=== PATIENT | male | born 1955 | race Caucasian/White ===

== ENCOUNTER 2016-07-18 08:22 | Inpatient (IN) | payer OTHER ==
[~2016-07-18] VITALS: Ht 188 cm; Wt 107.5 kg
[2016-07-18] MEDS ORDERED: IV NORMAL SALINE 1000ML BAG 1,000 ML IV SCH (08:54)
[2016-07-18] MEDS ORDERED: PIP/TAZO PER PHARMACY MC PRN (09:00)
[2016-07-18] MEDS ORDERED: 0.9 % SODIUM CHLORIDE 10 ML DISP.SYRIN. IV PRN (09:00)
[2016-07-18] MEDS ORDERED: MORPHINE SULFATE 10 MG/ML VIAL. IV ONE (09:00)
--- NOTE | 2016-07-18 09:20 | PHYS DOC ---
Adult General Chief Complaint Chief Complaint: WOUND CHECK HPI HPI Patient is a 61 year old, chronically ill male with a history of hypertension and COPD who [facility], presents the emergency department today via EMS transfer for bilateral lower extremity redness and swelling that is been ongoing for approximately one year. Patient himself reports of the left leg is worsened within the past 2-3 days. He denies antibiotic use within the past 60 days. He denies any fevers and chills. Patient himself is a poor historian. Past medical information has to be coaxed out of him. He admits that he is a smoker. He denies any history of vascular disease. Patient states that his legs have been red and swollen for approximately 2-3 years. He states that the purplish you to his toes is chronic in nature, particularly with his left leg. He denies any previous vascular workup her history of vascular abnormalities. Patient states he is able to stand and bear weight. He reports that he is bathe twice a week by nursing staff, even though he can stand and a shower. He states that he typically uses a wheelchair to get around for "long distances". Review of Systems Review of Systems Constitutional: Denies fever or chills [] Eyes: Denies change in visual acuity, redness, or eye pain [] HENT: Denies nasal congestion or sore throat [] Respiratory: Denies cough or shortness of breath [] Cardiovascular: No additional information not addressed in HPI [] GI: Denies abdominal pain, nausea, vomiting, bloody stools or diarrhea [] : Denies dysuria or hematuria [] Musculoskeletal: Denies back pain or joint pain [] Integument: Denies rash or skin lesions [] Neurologic: Denies headache, focal weakness or sensory changes [] Endocrine: Denies polyuria or polydipsia [] Current Medications Current Medications Current Medications Medications (Trade) Dose Ordered Sig/Melinda Start Time Stop Time Status Last Admin Dose Admin Morphine Sulfate 5 mg 1X ONCE 07/18/16 09:00 07/18/16 09:20 DC 07/18/16 09:49 5 MG Piperacillin Sod/ Tazobactam Sod (Zosyn Per Pharmacy) 1 each PRN DAILY PRN 07/18/16 09:00 07/23/16 08:46 DC Sodium Chloride (Iv Sodium Chloride 0.9% 1000ml Bag) 1,000 ml @ 1,000 mls/hr Q1H 07/18/16 08:54 07/18/16 09:53 DC 07/18/16 09:49 1,000 MLS/HR Sodium Chloride (Normal Saline Flush) 10 ml QSHIFT PRN 07/18/16 09:00 07/18/16 09:49 10 ML Vancomycin HCl 1 each 1 each PRN DAILY PRN 07/18/16 09:00 07/23/16 08:51 DC 07/22/16 17:12 1 EACH Allergies Allergies Physical Exam Physical Exam Constitutional: Well developed, well nourished, no acute distress, non-toxic appearance. Patient complains of pain to his left lower leg. Patient is overall appearance of a disheveled individual. He is ambivalent when answering questions about his past medical history and current reason for coming to the emergency department. HENT: Normocephalic, atraumatic, bilateral external ears normal, oropharynx moist, no oral exudates, nose normal. The tip of patient's nose is purple. Eyes: PERRLA, EOMI, conjunctiva normal, no discharge. [] Neck: Normal range of motion, no tenderness, supple, no stridor. [] Cardiovascular:Heart rate regular rhythm, no murmur [] Lungs & Thorax: Patient is on oxygen via nasal cannula. He shows no evidence of respiratory distress or fatigue. There is scant, scattered end expiratory wheezing bilaterally. Abdomen: Bowel sounds normal, soft, no tenderness, no masses, no pulsatile masses. [] Skin: Warm, dry, no erythema, no rash. [] Back: No tenderness, no CVA tenderness. [] Extremities: Bilateral lower extremities are grossly erythematous and swollen. Left greater than right. There is a foul smell coming from the patient's skin which is opened up and is weeping serous to yellowish drainage. Both lower extremities are warm to the touch. Patient's toes on his left foot are purple and cold to the touch. It is difficult to appreciate either dorsalis pedis or posterior tibialis pulse in the left leg. This may be due to the soft tissue swelling or arterial disease. Neurologic: Alert and oriented X 3, normal motor function, normal sensory function, no focal deficits noted. [] Psychologic: Affect normal, judgement normal, mood normal. [] Patient's overall presentation is one of her personal and has peripheral artery disease. Current Patient Data Vital Signs Vital Signs Date Time Temp Pulse Resp B/P Pulse Ox O2 Delivery O2 Flow Rate FiO2 07/18/16 09:29 90 18 150/74 94 Nasal Cannula 3 07/18/16 08:25 97.8 97.8 Lab Values Laboratory Tests Test 07/18/16 09:30 White Blood Count 8.6x10^3/uL (4.0-11.0) Red Blood Count 5.34x10^6/uL (4.30-5.70) Hemoglobin 15.0g/dL (13.0-17.5) Hematocrit 48.1% (39.0-53.0) Mean Corpuscular Volume 90fL (79-100) Mean Corpuscular Hemoglobin 28pg (25-35) Mean Corpuscular Hemoglobin Concent 31g/dL (31-37) Red Cell Distribution Width 15.5% (11.5-14.5) H Platelet Count 137x10^3/uL (140-400) L Neutrophils (%) (Auto) 86% (31-73) H Lymphocytes (%) (Auto) 6% (24-48) L Monocytes (%) (Auto) 7% (0-9) Eosinophils (%) (Auto) 1% (0-3) Basophils (%) (Auto) 0% (0-3) Neutrophils # (Auto) 7.4x10^3uL (1.8-7.7) Lymphocytes # (Auto) 0.5x10^3/uL (1.0-4.8) L Monocytes # (Auto) 0.6x10^3/uL (0.0-1.1) Eosinophils # (Auto) 0.0x10^3/uL (0.0-0.7) Basophils # (Auto) 0.0x10^3/uL (0.0-0.2) Segmented Neutrophils % 88% (35-66) H Lymphocytes % 5% (24-48) L Monocytes % 7% (0-10) Platelet Estimate Decreased (ADEQUATE) Erythrocyte Sedimentation Rate 8 (0-15) Sodium Level 140mmol/L (136-145) Potassium Level 4.6mmol/L (3.5-5.1) Chloride Level 99mmol/L (98-107) Carbon Dioxide Level 40mmol/L (21-32) H Anion Gap 1 (6-14) L Blood Urea Nitrogen 21mg/dL (8-26) Creatinine 0.9mg/dL (0.7-1.3) Estimated GFR (Cockcroft-Gault) 86.1 BUN/Creatinine Ratio 23 (6-20) H Glucose Level 120mg/dL (70-99) H Calcium Level 9.2mg/dL (8.5-10.1) Total Bilirubin 0.7mg/dL (0.2-1.0) Aspartate Amino Transferase (AST) 32U/L (15-37) Alanine Aminotransferase (ALT) 25U/L (16-63) Alkaline Phosphatase 90U/L (46-116) Total Protein 8.2g/dL (6.4-8.2) Albumin 3.1g/dL (3.4-5.0) L Albumin/Globulin Ratio 0.6 (1.0-1.7) L Laboratory Tests 07/18/16 09:30 Laboratory Tests 07/18/16 09:30 EKG EKG [] Radiology/Procedures Radiology/Procedures [] Course & Med Decision Making Course & Med Decision Making 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 He is a smoker. He definitely has the appearance of having arterial compromise. Laboratory test, left tib-fib and arterial ultrasound been ordered. Vancomycin and Zosyn have been ordered IV. Case was staffed with Dr. Rodrigez, hospitalist. He 'll accept the patient on his service. I evaluated this patient with the advanced provider and agree with his assessment and plan. Patient is likely having ongoing vascular disease from his history of smoking. Appropriate antibiotic therapy and tests were ordered. The advanced provider also discussed the case with the hospitalist who agreed to accept him for further evaluation and treatment. Dragon Disclaimer Dragon Disclaimer This electronic medical record was generated, in whole or in part, using a voice recognition dictation system. Departure Departure Impression: Primary Impression: Cellulitis Disposition: ADMITTED INPATIENT Admitting Physician: Jacquelyn Rodrigez Condition: STABLE GINA PARKINSON Jul 18, 2016 09:20 KASSY ROBERTSON DO Jul 27, 2016 06:28
[2016-07-18 09:40] LABS: BASO % 0 % (0-3); EOS % 1 % (0-3); HEMATOCRIT 48.1 % (39.0-53.0); LYMPH # 0.5 x10^3/uL (1.0-4.8); LYMPH % 6 % (24-48); MEAN CORPUSCULAR HEMOGLOBIN 28 pg (25-35); MEAN CORPUSCULAR HGB CONC 31 g/dL (31-37); MEAN CORPUSCULAR VOLUME 90 fL (79-100); MONO % 7 % (0-9); NEUT % 86 % (31-73); PLATELET COUNT 137 x10^3/uL (140-400); RED BLOOD COUNT 5.34 x10^6/uL (4.30-5.70); RED CELL DISTRIBUTION WIDTH 15.5 % (11.5-14.5); WHITE BLOOD COUNT 8.6 x10^3/uL (4.0-11.0)
[2016-07-18] MEDS ORDERED: MORPHINE SULFATE 4 MG/ML DISP.SYRIN. IV PRN (09:45)
[2016-07-18 09:52] LABS: CALCIUM 9.2 mg/dL (8.5-10.1); CREATININE 0.9 mg/dL (0.7-1.3); GFR 86.1; POTASSIUM 4.6 mmol/L (3.5-5.1)
[2016-07-18 09:58] LABS: ALBUMIN 3.1 g/dL (3.4-5.0); ALBUMIN/GLOBULIN RATIO 0.6 (1.0-1.7); TOTAL BILIRUBIN 0.7 mg/dL (0.2-1.0); TOTAL PROTEIN 8.2 g/dL (6.4-8.2)
[2016-07-18] MEDS ORDERED: VANCOMYCIN 2 GM in IV NORMAL SALINE 500ML BAG 500 ML IV ONE (10:00)
[2016-07-18] MEDS ORDERED: PIPERACILLIN/TAZOBACTAM 3.375 GM in IV NORMAL SALINE 50ML 50 ML IV ONE (10:00)
--- NOTE | 2016-07-18 10:06 | ACF ---
Admission Forms Criteria CELLULITIS Clinical Indications for Admission to Inpatient Care (Place 'X' for any and all applicable criteria): Admission is indicated for ANY ONE of the following(1)(2)(3)(4)(5): [X]I. Limb-threatening infection [ ]II. High-risk comorbid condition as indicated by ANY ONE of the following: [ ]a) Uncontrolled diabetes (eg, HbA1c greater than 10% (0.1)) [ ]b) Cirrhosis [ ]c) Neutropenia [ ]d) Asplenia [ ]e) Immunosuppression [ ]f) Symptomatic heart failure [ ]III. Failure of outpatient therapy as indicated by ALL of the following: [ ]a) Progression or no improvement after adequate trial (minimum of 48 hours, with longer period for stable lower extremity infection) [ ]b) Adequate antibiotic regimen as indicated by use of ANY ONE of the following: [ ]i) First-generation cephalosporin (e.g., cephalexin) [ ]ii) Antistaphylococcal penicillin (e.g., dicloxacillin) [ ]iii) Penicillin-allergic patient regimen (clindamycin, extended-spectrum fluoroquinolone, or doxycycline) [ ]iv) Resistant organism (eg, methicillin-resistant Staphylococcus aureus) regimen (6) [ ]c) Outpatient intravenous therapy regimen is not appropriate due to ANY ONE of the following. (7)(8)(9)(10): [ ]i) It was tried and was not successful (eg, progression of infection). [ ]ii) It is not available or cannot be arranged in a clinically appropriate time frame (e.g., the next day). [ ]iii) Clinical presentation (eg, acuity of infection, rapidity of progression, confirmed or suspected bacteremia) is judged to require ALL of the following: [ ]1) Immediate initiation of intravenous therapy ( eg, cannot wait for next day) [ ]2) Intensity of patient monitoring and observation (eg, vital sign measurement, checks for infection progression) that cannot be provided at other than inpatient level of care [ ]IV. Mental status changes [ ]V. Bacteremia [ ]. Hemodynamic instability [ ]VII. Suspected necrotizing soft tissue infection (e.g., gas in tissue)(11)( 12) [ ]VIII. Orbital infection (13)(14) [ ]IX. Associated surgical procedure (e.g., abscess drainage, debridement) not amenable to outpatient, emergency department, or observation care [ ]X. Cutaneous gangrene [ ]XI. High fever (temperature greater than 39.5 degrees C (103.1 degrees F) (oral)) not responsive to outpatient, emergency department, or observation care therapy [ ]XIII. Inpatient admission required rather than observation care (Also use Cellulitis: Observation Care as appropriate) because of ANY ONE of the following : [ ]a) Periorbital or perineal infection that is severe or worsening [ ]b) Severe pain requiring acute inpatient management [ ]c) IV fluid to replace significant ongoing (e.g., for over 24 hours) losses (greater than 3L/m2 per day) [ ]d) Compartment syndrome monitoring (17) [ ]e) Strict or protective (eg, laminar flow) isolation [ ]f) Urgent debridement or skin grafting [ ]g) Bone or joint debridement [ ]h) Immediate inpatient surgery [ ]i) Other condition, treatment or monitoring requiring inpatient admission Extended stay beyond goal length of stay may be needed for (1)(18): [ ]a) Necrotizing soft tissue infection or fasciitis [ ]b) Gram-negative infection [ ]c) Methicillin-resistant Staphylococcal aureus (MRSA) infection [ ]d) Peripheral venous insufficiency with cellulitis [ ]e) Extensive edema [ ]f) Sepsis or continued Hemodynamic instability [ ]g) Continued high fever or mental status change [ ]h) Bacteremia [ ]i) Active serious comorbid conditions ( eg, heart failure, renal insufficiency) The original [employer] content created by [employer] has been revised. The portions of the content which have been revised are identified through the use of italic text or in bold, and [facility] has neither reviewed nor approved the modified material. All other unmodified content is copyright [facility] Please see references footnoted in the original [facility] edition 2016 Admission Criteria Met?: Yes ELISHA RODRIGUEZ Jul 18, 2016 10:06
[2016-07-18 10:45] VITALS: BP 122/72
[2016-07-18] MEDS: IV NORMAL SALINE 1000ML BAG 1,000 ML IV SCH ×2 (10:54→17:42)
--- NOTE | 2016-07-18 11:28 | RAD ---
EXAM: Left tibia/fibula 2 views. HISTORY: Swelling, erythema and drainage. COMPARISON: None. FINDINGS: There is diffuse subcutaneous edema throughout the visualized leg. No soft tissue gas or cortical erosion is identified. No fractures are identified. The ankle is excluded on the lateral projection. There appear to be mild degenerative changes at the ankle on the frontal projection. The knee is excluded on the frontal projection. No abnormalities identified. Atherosclerotic calcifications are noted. IMPRESSION: 1. Diffuse soft tissue swelling. No clear acute osteomyelitis by radiographs.
[2016-07-18] MEDS ORDERED: IPRATRPIUM/ALBUTEROL 0.5/2.5MG 3 ML NEBU. NEB SCH (12:00)
--- NOTE | 2016-07-18 12:03 | RAD ---
EXAM: Left lower extremity arterial Doppler. HISTORY: Nonhealing left lower extremity wounds. COMPARISON: None. FINDINGS: Grayscale and Doppler analysis of the left posterior arterial system was performed. There are monophasic waveforms throughout the left lower extremity consistent with significant proximal occlusive disease. The peroneal and anterior tibial arteries could not be visualized. There is detectable flow in the dorsalis pedis artery. IMPRESSION: 1. Monophasic waveforms throughout the left portion consistent with significant proximal occlusive disease. Slow flow within the trifurcation vessels.
[2016-07-18] MEDS ORDERED: IPRA3AMP NEB (13:08)
[2016-07-18] MEDS ORDERED: VENTOLIN HFA18 GM INH (13:08)
[2016-07-18] MEDS ORDERED: SPIR25TA3 PO (13:08)
[2016-07-18] MEDS ORDERED: GABA-585 PO (13:08)
[2016-07-18] MEDS ORDERED: MIRT30TA3 PO (13:08)
[2016-07-18] MEDS ORDERED: IBUP-1027 PO (13:08)
[2016-07-18 14:03] LABS: PLT ESTIMATE DECREASED (ADEQUATE)
[2016-07-18] MEDS: VANCOMYCIN PER PHARMACY MC PRN (14:14)
[2016-07-18 15:00] VITALS: BP 122/69
--- NOTE | 2016-07-18 16:08 | PDOC1 ---
History and Physical Date of Admission Date of Admission DATE: 07/18/16 TIME: 16:05 Identification/Chief Complaint Chief Complaint LE pain Source Source: Chart review, Patient History of Present Illness History of Present Illness MR Gustafson, is a 61 year old, chronically ill, weakness and COPD. presented by EMS for LE pain and swelling and redness. Excoriation on L L Leg , with weeping, DIffuse dark erythema bilat LE and feet with superficial skin infection of Left leg. he reports his legs have been red and painful for some time He has lives in a NH for over a year, and mainly uses a wheelchair, but can stand and bear weight usually ongoing tobacco use scant other history, Leg pain, 6/10 Past Medical History Cardiovascular: HTN Pulmonary: COPD Rheumatologic: No pertinent hx Infectious disease: No pertinent hx ENT: No pertinent hx Family History Family History: No Significant Social History Smoke: 1 pack per day ALCOHOL: none Drugs: None Current Problem List Problem List Problems Medical Problems: (1) Cellulitis Status: Acute Problems: Current Medications Current Medications Current Medications Vancomycin HCl 1 each 1 each PRN DAILY PRN [facility] TO DOSE Last administered on 07/18/16 14:14; Start 07/18/16 at 09:00 Sodium Chloride (Iv Sodium Chloride 0.9% 1000ml Bag) 1,000 ml @ 1,000 mls/hr Q1H IV Last administered on 07/18/16 09:49; Start 07/18/16 at 08:54; Stop 04/24 at 09:53; Status DC Sodium Chloride (Normal Saline Flush) 10 ml QSHIFT PRN IV AFTER MEDS AND BLOOD DRAWS Last administered on 07/18/16 09:49; Start 07/18/16 at 09:00 Piperacillin Sod/ Tazobactam Sod (Zosyn Per Pharmacy) 1 each PRN DAILY PRN SEE COMMENTS; Start 07/18/16 at 09:00 Morphine Sulfate 5 mg 5 mg 1X ONCE IV Last administered on 07/18/16 09:49; Start 07/18/16 at 09:00; Stop 07/18/16 at 09:20; Status DC Piperacillin Sod/ Tazobactam Sod 3.375 gm/Sodium Chloride 50 ml @ 100 mls/hr 1X ONCE IV Last administered on 07/18/16 09:50; Start 07/18/16 at 10:00; Stop 07/18/16 at 10:29; Status DC Vancomycin HCl/ Sodium Chloride (Iv Sodium Chloride 0.9% 500ml Bag) 500 ml @ 250 mls/hr 1X ONCE IV Last administered on 07/18/16 10:49; Start 07/18/16 at 10:00; Stop 07/18/16 at 11:59; Status DC Morphine Sulfate 4 mg 4 mg PRN Q4HRS PRN IV PAIN Last administered on 10:54; Start 07/18/16 at 09:45 Sodium Chloride (Iv Sodium Chloride 0.9% 1000ml Bag) 1,000 ml @ 125 mls/hr Q8H IV Last administered on 07/18/16 10:54; Start 07/18/16 at 09:42; Stop at 09:41 Albuterol/ Ipratropium 3 ml 3 ml Q6HRS NEB ; Start 07/18/16 at 12:00 Piperacillin Sod/ Tazobactam Sod 3.375 gm/Sodium Chloride 50 ml @ 100 mls/hr Q6HRS IV ; Start 07/18/16 at 18:00 Vancomycin HCl/ Sodium Chloride (Iv Sodium Chloride 0.9% 500ml Bag) 500 ml @ 250 mls/hr Q8H IV ; Start 07/18/16 at 18:00 Vancomycin HCl 1 each 1X ONCE [facility] ; Start 07/19/16 at 09:30; Stop 07/19/16 at 09 :31 Active Scripts Active Reported Ventolin Hfa Inhaler (Albuterol Sulfate) 18 Gm Hfa.aer.ad 2 Puff INH PRN Q6HRS PRN Ibuprofen 400 Mg Tablet 400 Mg PO TID PRN Neurontin (Gabapentin) 100 Mg Capsule 100 Mg PO BID Mirtazapine 30 Mg Tablet 1 Tab PO QHS Spironolactone 25 Mg Tablet 1 Tab PO DAILY Duoneb 0.5-3(2.5) Mg/3 Ml (Albuterol/Ipratropium) 3 Ml Ampul.neb 3 Ml NEB QID PRN Allergies Allergies: Coded Allergies: No Known Drug Allergies (Unverified , 07/18/16) ROS General: YES: Fatigue, Malaise, No: Appetite, Chills, Night Sweats, Other PSYCHOLOGICAL ROS: No: Anxiety, Behavioral Disorder, Concentration difficultie , Decreased libido, Depression, Disorientation, Hallucinations, Hostility, Irritablity, Memory difficulties, Mood Swings, Obsessive thoughts, Other, Physical abuse, Sexual abuse, Sleep disturbances, Suicidal ideation Eyes: No Blurry vision, No Decreased vision, No Double vision, No Dry eyes, No Excessive tearing, No Eye Pain, No Itchy Eyes, No Loss of vision, No Other, No Photophobia, No Scotomata, No Uses contacts, No Uses glasses HEENT: No: Epistaxis, Heacaches, Hearing change, Nasal congestion, Nasal discharge, Oral lesions, Other, Sinus pain, Sneezing, Snoring, Sore Throat, Tinnitus, Vertigo, Visual Changes, Vocal changes Respiratory: No: Cough, Hemoptysis, Orthopnea, Other, Pleuritic Pain, SOB with excertion, Shortness of breath, Sputum Changes, Stridor, Tachypnea, Wheezing Cardiovascular: No Chest Pain, No Edema, No Lt Headedness, No Orthopnea, No Other, No Palpitations, No Paroxysmal Noc. Dyspnea Gastrointestinal: Yes Nausea, No Abdominal Pain, No Constipation, No Diarrhea, No Hematochezia, No Melena, No Other, No Vomiting Genitourinary: No , No , No , No , No , No , No , No Discharge, No Dysuria, No Flank Pain, No Frequency, No Hematuria, No Incontinence, No Other, No Pain, No Retention, No Urgency Musculoskeletal: Yes Pain In: Neurological: No Behavorial Changes, No Bowel/Bladder ControlChng, No Confusion , No Dizziness, No Gait Disturbance, No Headaches, No Impaired Coord/balance, No Memory Loss, No Numbness/Tingling, No Other, No Seizures, No Speech Problems , No Tremors, No Visual Changes, No Weakness Skin: No Acne, No Dry Skin, No Eczema, No Hair Changes, No Lumps, No Mole Changes, No Mottling, No Nail Changes, No Other, No Pruritus, No Rash, No Skin Lesion Changes Physical Exam General: Alert, Oriented X3, Cooperative, mild distress Lungs: Clear to auscultation Heart: RRR, no murmurs Abdomen: Normal bowel sounds, Soft (obese) Rectal Exam: not examined Extremities: No clubbing, Other (diffuse LE edema) Skin: Other (redness, excoriationg, eythema, weeping, ) Neuro: Normal speech, Sensation intact Psych/Mental Status: Mood NL Vitals Vitals Vital Signs Date Time Temp Pulse Resp B/P Pulse Ox O2 Delivery O2 Flow Rate FiO2 07/18/16 15:00 97.5 91 20 122/69 90 Nasal Cannula 3.0 97.5 Labs Labs Laboratory Tests Test 07/18/16 09:30 White Blood Count 8.6x10^3/uL (4.0-11.0) Red Blood Count 5.34x10^6/uL (4.30-5.70) Hemoglobin 15.0g/dL (13.0-17.5) Hematocrit 48.1% (39.0-53.0) Mean Corpuscular Volume 90fL (79-100) Mean Corpuscular Hemoglobin 28pg (25-35) Mean Corpuscular Hemoglobin Concent 31g/dL (31-37) Red Cell Distribution Width 15.5% (11.5-14.5) Platelet Count 137x10^3/uL (140-400) Neutrophils (%) (Auto) 86% (31-73) Lymphocytes (%) (Auto) 6% (24-48) Monocytes (%) (Auto) 7% (0-9) Eosinophils (%) (Auto) 1% (0-3) Basophils (%) (Auto) 0% (0-3) Neutrophils # (Auto) 7.4x10^3uL (1.8-7.7) Lymphocytes # (Auto) 0.5x10^3/uL (1.0-4.8) Monocytes # (Auto) 0.6x10^3/uL (0.0-1.1) Eosinophils # (Auto) 0.0x10^3/uL (0.0-0.7) Basophils # (Auto) 0.0x10^3/uL (0.0-0.2) Segmented Neutrophils % 88% (35-66) Lymphocytes % 5% (24-48) Monocytes % 7% (0-10) Platelet Estimate Decreased (ADEQUATE) Erythrocyte Sedimentation Rate 8 (0-15) Sodium Level 140mmol/L (136-145) Potassium Level 4.6mmol/L (3.5-5.1) Chloride Level 99mmol/L (98-107) Carbon Dioxide Level 40mmol/L (21-32) Anion Gap 1 (6-14) Blood Urea Nitrogen 21mg/dL (8-26) Creatinine 0.9mg/dL (0.7-1.3) Estimated GFR (Cockcroft-Gault) 86.1 BUN/Creatinine Ratio 23 (6-20) Glucose Level 120mg/dL (70-99) Calcium Level 9.2mg/dL (8.5-10.1) Total Bilirubin 0.7mg/dL (0.2-1.0) Aspartate Amino Transf (AST/SGOT) 32U/L (15-37) Alanine Aminotransferase (ALT/SGPT) 25U/L (16-63) Alkaline Phosphatase 90U/L (46-116) Total Protein 8.2g/dL (6.4-8.2) Albumin 3.1g/dL (3.4-5.0) Albumin/Globulin Ratio 0.6 (1.0-1.7) Laboratory Tests Test 07/18/16 09:30 White Blood Count 8.6x10^3/uL (4.0-11.0) Red Blood Count 5.34x10^6/uL (4.30-5.70) Hemoglobin 15.0g/dL (13.0-17.5) Hematocrit 48.1% (39.0-53.0) Mean Corpuscular Volume 90fL (79-100) Mean Corpuscular Hemoglobin 28pg (25-35) Mean Corpuscular Hemoglobin Concent 31g/dL (31-37) Red Cell Distribution Width 15.5% (11.5-14.5) Platelet Count 137x10^3/uL (140-400) Neutrophils (%) (Auto) 86% (31-73) Lymphocytes (%) (Auto) 6% (24-48) Monocytes (%) (Auto) 7% (0-9) Eosinophils (%) (Auto) 1% (0-3) Basophils (%) (Auto) 0% (0-3) Neutrophils # (Auto) 7.4x10^3uL (1.8-7.7) Lymphocytes # (Auto) 0.5x10^3/uL (1.0-4.8) Monocytes # (Auto) 0.6x10^3/uL (0.0-1.1) Eosinophils # (Auto) 0.0x10^3/uL (0.0-0.7) Basophils # (Auto) 0.0x10^3/uL (0.0-0.2) Segmented Neutrophils % 88% (35-66) Lymphocytes % 5% (24-48) Monocytes % 7% (0-10) Platelet Estimate Decreased (ADEQUATE) Erythrocyte Sedimentation Rate 8 (0-15) Sodium Level 140mmol/L (136-145) Potassium Level 4.6mmol/L (3.5-5.1) Chloride Level 99mmol/L (98-107) Carbon Dioxide Level 40mmol/L (21-32) Anion Gap 1 (6-14) Blood Urea Nitrogen 21mg/dL (8-26) Creatinine 0.9mg/dL (0.7-1.3) Estimated GFR (Cockcroft-Gault) 86.1 BUN/Creatinine Ratio 23 (6-20) Glucose Level 120mg/dL (70-99) Calcium Level 9.2mg/dL (8.5-10.1) Total Bilirubin 0.7mg/dL (0.2-1.0) Aspartate Amino Transf (AST/SGOT) 32U/L (15-37) Alanine Aminotransferase (ALT/SGPT) 25U/L (16-63) Alkaline Phosphatase 90U/L (46-116) Total Protein 8.2g/dL (6.4-8.2) Albumin 3.1g/dL (3.4-5.0) Albumin/Globulin Ratio 0.6 (1.0-1.7) VTE Prophylaxis Ordered VTE Prophylaxis Devices: Contraindicated VTE Pharmacological Prophylaxi: Yes Assessment/Plan Assessment/Plan cellulitis BLE, Vanc and zosyn, consult ID suspect poor perfusion LE, PVD or suspect Buerger;s disease, consult Vascular, check RADHA obesity, BMI 37 tobacco abuse COPD known, hypercarbic, chronic mild.mod malnutrition gen weakness and debility, lives in [place] reports [place] insurance, maybe disability, this was unclear RYAN HAQ MD Jul 18, 2016 16:08
[2016-07-18] MEDS ORDERED: NON FORMULARY ITEM (Albuterol Sulfate (Ventolin Hfa Inhaler) 2 PUFF) INH PRN (16:15)
[2016-07-18] MEDS ORDERED: ALBUTEROL SULFATE 2.5 MG/3 ML NEBU. NEB PRN (16:15)
[2016-07-18] MEDS ORDERED: IPRATRPIUM/ALBUTEROL 0.5/2.5MG 3 ML NEBU. NEB PRN (16:15)
[2016-07-18] MEDS: SPIRONOLACTONE 25 MG TABLET PO SCH (16:38)
[2016-07-18] MEDS: IBUPROFEN 400 MG TABLET. PO PRN (16:38)
[2016-07-18] MEDS: IPRATRPIUM/ALBUTEROL 0.5/2.5MG 3 ML NEBU. NEB SCH ×2 (17:00→19:54)
[2016-07-18] MEDS: OXYCODONE/APAP 5/325 TABLET. PO PRN ×2 (18:15→22:15)
[2016-07-18] MEDS: VANCOMYCIN 1.75 GM in IV NORMAL SALINE 500ML BAG 500 ML IV SCH (18:16)
[2016-07-18] MEDS: PIPERACILLIN/TAZOBACTAM 3.375 GM in IV NORMAL SALINE 50ML 50 ML IV SCH (18:16)
[2016-07-18 19:00] VITALS: BP 102/54
[2016-07-18] MEDS: GABAPENTIN 100 MG CAPSULE. PO SCH (22:14)
[2016-07-18] MEDS: MIRTAZAPINE 15 MG TABLET PO SCH (22:14)
[2016-07-18 23:23] VITALS: BP 114/57
[2016-07-19] MEDS: PIPERACILLIN/TAZOBACTAM 3.375 GM in IV NORMAL SALINE 50ML 50 ML IV SCH ×4 (00:15→18:42)
[2016-07-19] MEDS: IV NORMAL SALINE 1000ML BAG 1,000 ML IV SCH (01:42)
[2016-07-19] MEDS: VANCOMYCIN 1.75 GM in IV NORMAL SALINE 500ML BAG 500 ML IV SCH ×2 (02:19→10:00)
[2016-07-19] MEDS: OXYCODONE/APAP 5/325 TABLET. PO PRN ×4 (02:19→18:41)
[2016-07-19 03:22] VITALS: BP 103/64
[2016-07-19 07:00] VITALS: BP 145/71
--- NOTE | 2016-07-19 08:21 | RAD ---
Ankle-brachial indices, 07/18/2016: History: Nonhealing wounds Resting RADHA measurements were obtained. The right RADHA is 1.04 while the left RADHA is 1.08. IMPRESSION: Normal resting ankle-brachial indices.
[2016-07-19] MEDS: GABAPENTIN 100 MG CAPSULE. PO SCH ×2 (08:29→21:17)
[2016-07-19] MEDS: SPIRONOLACTONE 25 MG TABLET PO SCH (08:29)
[2016-07-19] MEDS: IPRATRPIUM/ALBUTEROL 0.5/2.5MG 3 ML NEBU. NEB SCH ×4 (08:33→21:07)
--- NOTE | 2016-07-19 09:59 | PDOC ---
Infectious Disease Note ROS ROS GEN: Denies fevers, chills, sweats HEENT: Denies blurred vision, sore throat CV: Denies chest pain RESP: Denies shortness of air, cough GI: Denies n/v/d NEURO: Denies confusion, dizziness MSK: Denies weakness, joint pain/swelling Vital Sign Vital Signs Vital Signs Date Time Temp Pulse Resp B/P Pulse Ox O2 Delivery O2 Flow Rate FiO2 07/19/16 08:34 89 Nasal Cannula 4.0 07/19/16 07:00 98.8 99 20 145/71 98.8 Physical Exam PHYSICAL EXAM GENERAL: NAD, Alert HEENT: PERRL, OC/OP NECK: Supple, no JVD, no LN LUNGS: Clear HEART: S1S2, no gallop, no murmur ABD: Soft, NT, no organomegaly, no rebound EXT: No edema, no cyanosis [employer]ER: Alert, oriented x 3, no focal neurologic deficit SKIN: No rash IV: ok Objective Assessment LE Cellulitis PAD hyperglycemia Tinea Plan Plan of Care Cont Abx Add fluconazole Derm consult/biopsy if vascular uncertain of etiology. Seems to have a generalized skin condition Check hgA1 c Thank you # [id number] ERLIN FU MD Jul 19, 2016 09:59
[2016-07-19 10:17] LABS: CALCIUM 8.6 mg/dL (8.5-10.1); CREATININE 1.1 mg/dL (0.7-1.3); GFR 68.3
[2016-07-19] MEDS: VANCOMYCIN PER PHARMACY MC PRN (10:20)
[2016-07-19 10:51] VITALS: BP 129/63
[2016-07-19 11:19] LABS: BASO % 0 % (0-3); EOS % 1 % (0-3); HEMATOCRIT 44.3 % (39.0-53.0); HEMOGLOBIN 14.1 g/dL (13.0-17.5); LYMPH # 0.3 x10^3/uL (1.0-4.8); LYMPH % 5 % (24-48); MEAN CORPUSCULAR HEMOGLOBIN 28 pg (25-35); MEAN CORPUSCULAR HGB CONC 32 g/dL (31-37); MEAN CORPUSCULAR VOLUME 89 fL (79-100); MONO % 6 % (0-9); NEUT % 88 % (31-73); PLATELET COUNT 130 x10^3/uL (140-400); RED BLOOD COUNT 4.99 x10^6/uL (4.30-5.70); RED CELL DISTRIBUTION WIDTH 15.7 % (11.5-14.5); WHITE BLOOD COUNT 6.5 x10^3/uL (4.0-11.0)
[2016-07-19 14:43] LABS: INR 1.2 (0.8-1.1); PROTHROMBIN TIME PATIENT 14.1 SEC (11.7-14.0)
[2016-07-19 15:14] VITALS: BP 137/75
[2016-07-19] MEDS ORDERED: IOHEXOL 300 MG/ML 100ML VIAL. ONE (16:28)
[2016-07-19] MEDS ORDERED: LIDOCAINE 1% / SOD BICARB 8.4% 20 ML VIAL. IJ ONE (16:28)
[2016-07-19] MEDS ORDERED: IODIXANOL 320MG/ML 50ML VIAL. ONE (16:28)
[2016-07-19] MEDS ORDERED: IODIXANOL 320 MG/ML 100 ML VIAL. ONE (16:29)
--- NOTE | 2016-07-19 17:04 | PDOC ---
Provider Note Provider Note IR Note: Abdominal aortogram with bilateral lower extremity angio has been requested for severe lower extremity edema/cellulitis. Mr Manuel was brought to the IR suite and was placed supine on the angio table. Lying flat, he became anxious and his O2 sats fell into low 60s on supplemental O2 at 5L per NC. The arteriogram was deferred at this time, and could be rescheduled later with anesthesia assistance, once respiratory status is optimized. HIMS and Vascular Surgery notified. Will follow. MOISÉS COLLINS MD Jul 19, 2016 17:04
--- NOTE | 2016-07-19 17:14 | PDOC ---
PROGRESS NOTES Chief Complaint Chief Complaint Leg pain ASSESSMENT AND PLAN: 1. LE cellulitis: on Abx 2. PVD: art US with occlusive dz. eval with arteriogram pending. Vasc surg consult requested 3. Hypoxic, hypercarbic respir status w/o distress: suspect chronic, COPD, with ongoing tobacco abuse. supplemental O2, nebs. obtain CXR. consult pulm. apparently, had hx of lung lesion with neg bronch in the past 4. Tobacco use: <1/2 ppd now, with >100 p/y hx. encouraged complete cessation 5. HTN: on spironolactone alone (suspect for chronic venous stasis). should be on BB, will start 6. Psych: unclear hx (?depression), but on mirtazapine. cont home med. 7. Thrombocytopenia: stable in triple-digit lowish range. 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 monitor 8. Prophylaxis: sq heparin for now; hold prior to interventions ADDENDUM: arteriogram aborted due to persistent hypoxia even with O2 support. await pulm input before rpt trial. Vitals Vitals Vital Signs Date Time Temp Pulse Resp B/P Pulse Ox O2 Delivery O2 Flow Rate FiO2 07/19/16 15:14 97.7 78 20 137/75 89 Nasal Cannula 4.0 97.7 Physical Exam General: Alert, Oriented X3, Cooperative, No acute distress Heart: Regular rate Lungs: Clear (decreased BS) Abdomen: Normal bowel sounds, Soft (obese) Extremities: No clubbing, Other (deep purple discoloration from bilat dorsi of feet to almost knees. open wounds covered with gauze.) Skin: Other (very dry, superficial blistering on LE ) Labs LABS Laboratory Tests Test 07/19/16 09:30 07/19/16 11:00 07/19/16 14:27 Sodium Level 137mmol/L (136-145) Potassium Level 5.0mmol/L (3.5-5.1) Chloride Level 100mmol/L (98-107) Carbon Dioxide Level 32mmol/L (21-32) Anion Gap 5 (6-14) Blood Urea Nitrogen 20mg/dL (8-26) Creatinine 1.1mg/dL (0.7-1.3) Estimated GFR (Cockcroft-Gault) 68.3 Glucose Level 167mg/dL (70-99) Calcium Level 8.6mg/dL (8.5-10.1) Vancomycin Level Trough 37.2mcg/mL (10.0-20.0) Vancomycin Last Dose Date 07/19/16 Vancomycin Last Dose Time 0200 White Blood Count 6.5x10^3/uL (4.0-11.0) Red Blood Count 4.99x10^6/uL (4.30-5.70) Hemoglobin 14.1g/dL (13.0-17.5) Hematocrit 44.3% (39.0-53.0) Mean Corpuscular Volume 89fL (79-100) Mean Corpuscular Hemoglobin 28pg (25-35) Mean Corpuscular Hemoglobin Concent 32g/dL (31-37) Red Cell Distribution Width 15.7% (11.5-14.5) Platelet Count 130x10^3/uL (140-400) Neutrophils (%) (Auto) 88% (31-73) Lymphocytes (%) (Auto) 5% (24-48) Monocytes (%) (Auto) 6% (0-9) Eosinophils (%) (Auto) 1% (0-3) Basophils (%) (Auto) 0% (0-3) Neutrophils # (Auto) 5.7x10^3uL (1.8-7.7) Lymphocytes # (Auto) 0.3x10^3/uL (1.0-4.8) Monocytes # (Auto) 0.4x10^3/uL (0.0-1.1) Eosinophils # (Auto) 0.0x10^3/uL (0.0-0.7) Basophils # (Auto) 0.0x10^3/uL (0.0-0.2) Prothrombin Time 14.1SEC (11.7-14.0) Prothromb Time International Ratio 1.2 (0.8-1.1) Review of Systems Review of Systems doing ok, denies SOB. not interested in participating in own healthcare Comment Review of Relevant IWONA GUZMAN MD Jul 19, 2016 17:14
--- NOTE | 2016-07-19 17:45 | PDOC2 ---
EMIL OG TRAPEZE ARTIST 07/19/16 1745: CONSULT Date of Consult Date of Consult DATE: 07/19/16 TIME: 10:30 Reason for Consult Reason for Consult: Bilateral lower extremity leg pain and ulcers. Referring Physician Referring Physician: Dr. Jacquelyn Rodrigez Source Source: Chart review, Patient History of Present Illness Reason for Visit: This is a 61-year-old male who appears older than his stated age with a history of COPD and hypertension who was brought to the emergency room by EMS for evaluation of bilateral lower extremity leg wounds. The patient became a resident of a prison 1 year ago when the patient's brother insisted that he could no longer live alone. The patient states he has had chronic leg wounds with swelling for a long time and "years" but that the appearance has worsened recently. He has no idea why his legs are this way and denies having any formal work up or previous evaluation of his legs. He states that he could walk without pain until just a few days ago. He has been able to ambulate at the prison without assistance but tends to use a wheelchair for longer distances. He does have a history of tobacco abuse and reports less than a pack a day. He denies symptoms of pain in the buttock, thigh or calves consistent with claudication. However, he does not tend to be very active and most likely does not perform more aerobic activities to cause symptoms. The patient denies any trauma to his lower extremities that could have caused his wounds. Vascular Surgery consultation has been requested for evaluation and recommendation for bilateral leg pain with ulcers. Past Medical History Past Medical History 1. Current tobacco abuse. 2. Hypertension. 3. Cellulitis bilateral lower extremities. 4. History of ETOH. 5. Ruptured gastric ulcer requiring abdominal surgery. 6. Fractured left shoulder with repair. 7. Fractured left hip with repair. 8. 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 Past Surgical History Past Surgical History 1. Abdominal surgery for a ruptured gastric ulcer. 2. Repair of fractured left shoulder. 3. Repair of fractured left hip. Family History Family History: No Significant Social History Social History Current smokes reportedly less than 1 pack per day. Drinks at least 2 beers every Tuesday. + history of alcohol abuse. Denied drug abuse. Lives in a prison. Current Problem List Problem List Problems Medical Problems: (1) Cellulitis Status: Acute Current Medications Current Medications Current Medications Vancomycin HCl 1 each 1 each PRN DAILY PRN PHARMACY TO DOSE Last administered on 07/19/16 10:20; Start 07/18/16 at 09:00 Sodium Chloride (Iv Sodium Chloride 0.9% 1000ml Bag) 1,000 ml @ 1,000 mls/hr Q1H IV Last administered on 07/18/16 09:49; Start 07/18/16 at 08:54; Stop 04/24 at 09:53; Status DC Sodium Chloride (Normal Saline Flush) 10 ml QSHIFT PRN IV AFTER MEDS AND BLOOD DRAWS Last administered on 07/18/16 09:49; Start 07/18/16 at 09:00 Piperacillin Sod/ Tazobactam Sod (Zosyn Per Pharmacy) 1 each PRN DAILY PRN SEE COMMENTS; Start 07/18/16 at 09:00 Morphine Sulfate 5 mg 5 mg 1X ONCE IV Last administered on 07/18/16 09:49; Start 07/18/16 at 09:00; Stop 07/18/16 at 09:20; Status DC Piperacillin Sod/ Tazobactam Sod 3.375 gm/Sodium Chloride 50 ml @ 100 mls/hr 1X ONCE IV Last administered on 07/18/16 09:50; Start 07/18/16 at 10:00; Stop 07/18/16 at 10:29; Status DC Vancomycin HCl/ Sodium Chloride (Iv Sodium Chloride 0.9% 500ml Bag) 500 ml @ 250 mls/hr 1X ONCE IV Last administered on 07/18/16 10:49; Start 07/18/16 at 10:00; Stop 07/18/16 at 11:59; Status DC Morphine Sulfate 4 mg 4 mg PRN Q4HRS PRN IV PAIN Last administered on 10:54; Start 07/18/16 at 09:45 Sodium Chloride (Iv Sodium Chloride 0.9% 1000ml Bag) 1,000 ml @ 125 mls/hr Q8H IV Last administered on 07/18/16 10:54; Start 07/18/16 at 09:42; Stop at 09:41; Status DC Albuterol/ Ipratropium 3 ml 3 ml Q6HRS NEB ; Start 07/18/16 at 12:00; Stop 07/18 at 16:06; Status DC Piperacillin Sod/ Tazobactam Sod 3.375 gm/Sodium Chloride 50 ml @ 100 mls/hr Q6HRS IV Last administered on 07/19/16 12:15; Start 07/18/16 at 18:00 Vancomycin HCl/ Sodium Chloride (Iv Sodium Chloride 0.9% 500ml Bag) 500 ml @ 250 mls/hr Q8H IV Last administered on 07/19/16 02:19; Start 07/18/16 at 18:00 ; Stop 07/19/16 at 10:15; Status DC Vancomycin HCl 1 each 1X ONCE MC Last administered on 07/19/16 09:30; Start 07/19/16 at 09:30; Stop 07/19/16 at 09:31; Status DC Gabapentin (Neurontin) 100 mg BID PO Last administered on 07/19/16 08:29; Start 07/18/16 at 21:00 Ibuprofen (Motrin) 400 mg PRN TID PRN PO INFLAMMATION Last administered on 07/18 16:38; Start 07/18/16 at 16:15 Albuterol/ Ipratropium (Duoneb) 3 ml QID PRN NEB SHORTNESS OF BREATH; Start 04/24 at 16:15; Stop 07/18/16 at 16:19; Status DC Spironolactone (Aldactone) 25 mg DAILY PO Last administered on 07/19/16 08:29 ; Start 07/18/16 at 17:00 Non-Formulary Medication 2 puff PRN Q6HRS PRN INH SHORTNESS OF BREATH; Start at 16:15; Stop 07/18/16 at 16:18; Status DC Mirtazapine (Remeron) 30 mg QHS PO Last administered on 07/18/16 22:14; Start 07/18/16 at 21:00 Albuterol/ Ipratropium (Duoneb) 3 ml RTQID NEB Last administered on 07/19/16 12:57; Start 07/18/16 at 17:00 Oxycodone/ Acetaminophen (Percocet 5/325) 1 tab PRN Q4HRS PRN PO PAIN Last administered on 07/19/16 12:17; Start 07/18/16 at 16:15 Albuterol Sulfate 2.5 mg 2.5 mg PRN Q6HRS PRN NEB SHORTNESS OF BREATH; Start at 16:15 Vancomycin HCl/ Sodium Chloride (Iv Sodium Chloride 0.9% 250ml) 250 ml @ 250 mls/hr Q12H IV ; Start 07/19/16 at 21:00 Iodixanol (Visipaque 320) 50 ml STK-MED ONCE .ROUTE ; Start 07/19/16 at 16:28; Stop 07/19/16 at 16:29; Status DC Iohexol (Omnipaque 300 Mg/ml) 100 ml STK-MED ONCE .ROUTE ; Start 07/19/16 at 16: 28; Stop 07/19/16 at 16:29; Status DC Lidocaine/Sodium Bicarbonate 20 ml 20 ml STK-MED ONCE IJ ; Start 07/19/16 at 16: 28; Stop 07/19/16 at 16:29; Status DC Heparin Sodium/ Sodium Chloride 1,500 ml @ As Directed STK-MED ONCE .ROUTE ; Start 07/19/16 at 16:28; Stop 07/19/16 at 16:29; Status DC Iodixanol (Visipaque 320) 100 ml STK-MED ONCE .ROUTE ; Start 07/19/16 at 16:29; Stop 07/19/16 at 16:30; Status DC Active Scripts Active Reported Ventolin Hfa Inhaler (Albuterol Sulfate) 18 Gm Hfa.aer.ad 2 Puff INH PRN Q6HRS PRN Ibuprofen 400 Mg Tablet 400 Mg PO TID PRN Neurontin (Gabapentin) 100 Mg Capsule 100 Mg PO BID Mirtazapine 30 Mg Tablet 1 Tab PO QHS Spironolactone 25 Mg Tablet 1 Tab PO DAILY Duoneb 0.5-3(2.5) Mg/3 Ml (Albuterol/Ipratropium) 3 Ml Ampul.neb 3 Ml NEB QID PRN Allergies Allergies: Coded Allergies: No Known Drug Allergies (Unverified , 07/18/16) ROS General: No: Chills, Night Sweats HEENT: No: Heacaches, Nasal congestion, Nasal discharge Hematological and Lymphatic: YES: Swollen Lymph Nodes, No: Blood Clots Respiratory: YES: Cough, No: Hemoptysis, Pleuritic Pain, Shortness of breath Cardiovascular: yes Edema (Bilateral lower extremities), No Chest Pain, No Palpitations Gastrointestinal: No Abdominal Pain, No Constipation, No Diarrhea, No Nausea, No Vomiting Genitourinary: YES , YES , YES , No Dysuria, No Pain Musculoskeletal: Yes Pain In: (Bilateral feet) Skin: Yes Other (Bilateral lower leg edema with weeping ulcers and skin color changes) Physical Exam General: Alert, Oriented X3, Cooperative, mild distress HEENT: Other (No upper teeth with several missing lower teeth) Lungs: Other (Bilateral expiratory wheezes. On supplemental oxygen 4 liters.) Heart: Regular rate, Normal S1, Normal S2, No murmurs Abdomen: Normal bowel sounds, No tenderness, Other (Rounded and somewhat protruding. Patient states this is normal for him.) Extremities: Other (Palpable bilateral radial pulses and right femoral pulse. Unable to palpate left femoral pulse. Unable to palpate popliteal, post tibial or dorsalis pedal pulses due to swelling.) Skin: Other (Bilateral diffuse and dark erythema from knees down with bubbling skin changes and thick, creamy weeping consistent with cellulitis. Right lower leg skin changes more dry and scaly. Left lower leg and foot with patchy areas of black necrotic tissue changes. ) Vitals VITALS Vital Signs Date Time Temp Pulse Resp B/P Pulse Ox O2 Delivery O2 Flow Rate FiO2 07/19/16 15:14 97.7 78 20 137/75 89 Nasal Cannula 4.0 97.7 Labs Labs Laboratory Tests Test 07/18/16 09:30 07/19/16 09:30 07/19/16 11:00 07/19/16 14:27 White Blood Count 8.6x10^3/uL (4.0-11.0) 6.5x10^3/uL (4.0-11.0) Red Blood Count 5.34x10^6/uL (4.30-5.70) 4.99x10^6/uL (4.30-5.70) Hemoglobin 15.0g/dL (13.0-17.5) 14.1g/dL (13.0-17.5) Hematocrit 48.1% (39.0-53.0) 44.3% (39.0-53.0) Mean Corpuscular Volume 90fL (79-100) 89fL (79-100) Mean Corpuscular Hemoglobin 28pg (25-35) 28pg (25-35) Mean Corpuscular Hemoglobin Concent 31g/dL (31-37) 32g/dL (31-37) Red Cell Distribution Width 15.5% (11.5-14.5) 15.7% (11.5-14.5) Platelet Count 137x10^3/uL (140-400) 130x10^3/uL (140-400) Neutrophils (%) (Auto) 86% (31-73) 88% (31-73) Lymphocytes (%) (Auto) 6% (24-48) 5% (24-48) Monocytes (%) (Auto) 7% (0-9) 6% (0-9) Eosinophils (%) (Auto) 1% (0-3) 1% (0-3) Basophils (%) (Auto) 0% (0-3) 0% (0-3) Neutrophils # (Auto) 7.4x10^3uL (1.8-7.7) 5.7x10^3uL (1.8-7.7) Lymphocytes # (Auto) 0.5x10^3/uL (1.0-4.8) 0.3x10^3/uL (1.0-4.8) Monocytes # (Auto) 0.6x10^3/uL (0.0-1.1) 0.4x10^3/uL (0.0-1.1) Eosinophils # (Auto) 0.0x10^3/uL (0.0-0.7) 0.0x10^3/uL (0.0-0.7) Basophils # (Auto) 0.0x10^3/uL (0.0-0.2) 0.0x10^3/uL (0.0-0.2) Segmented Neutrophils % 88% (35-66) Lymphocytes % 5% (24-48) Monocytes % 7% (0-10) Platelet Estimate Decreased (ADEQUATE) Erythrocyte Sedimentation Rate 8 (0-15) Sodium Level 140mmol/L (136-145) 137mmol/L (136-145) Potassium Level 4.6mmol/L (3.5-5.1) 5.0mmol/L (3.5-5.1) Chloride Level 99mmol/L (98-107) 100mmol/L (98-107) Carbon Dioxide Level 40mmol/L (21-32) 32mmol/L (21-32) Anion Gap 1 (6-14) 5 (6-14) Blood Urea Nitrogen 21mg/dL (8-26) 20mg/dL (8-26) Creatinine 0.9mg/dL (0.7-1.3) 1.1mg/dL (0.7-1.3) Estimated GFR (Cockcroft-Gault) 86.1 68.3 BUN/Creatinine Ratio 23 (6-20) Glucose Level 120mg/dL (70-99) 167mg/dL (70-99) Calcium Level 9.2mg/dL (8.5-10.1) 8.6mg/dL (8.5-10.1) Total Bilirubin 0.7mg/dL (0.2-1.0) Aspartate Amino Transf (AST/SGOT) 32U/L (15-37) Alanine Aminotransferase (ALT/SGPT) 25U/L (16-63) Alkaline Phosphatase 90U/L (46-116) Total Protein 8.2g/dL (6.4-8.2) Albumin 3.1g/dL (3.4-5.0) Albumin/Globulin Ratio 0.6 (1.0-1.7) Vancomycin Level Trough 37.2mcg/mL (10.0-20.0) Vancomycin Last Dose Date 07/19/16 Vancomycin Last Dose Time 0200 Prothrombin Time 14.1SEC (11.7-14.0) Prothromb Time International Ratio 1.2 (0.8-1.1) Laboratory Tests Test 07/19/16 09:30 07/19/16 11:00 07/19/16 14:27 Sodium Level 137mmol/L (136-145) Potassium Level 5.0mmol/L (3.5-5.1) Chloride Level 100mmol/L (98-107) Carbon Dioxide Level 32mmol/L (21-32) Anion Gap 5 (6-14) Blood Urea Nitrogen 20mg/dL (8-26) Creatinine 1.1mg/dL (0.7-1.3) Estimated GFR (Cockcroft-Gault) 68.3 Glucose Level 167mg/dL (70-99) Calcium Level 8.6mg/dL (8.5-10.1) Vancomycin Level Trough 37.2mcg/mL (10.0-20.0) Vancomycin Last Dose Date 07/19/16 Vancomycin Last Dose Time 0200 White Blood Count 6.5x10^3/uL (4.0-11.0) Red Blood Count 4.99x10^6/uL (4.30-5.70) Hemoglobin 14.1g/dL (13.0-17.5) Hematocrit 44.3% (39.0-53.0) Mean Corpuscular Volume 89fL (79-100) Mean Corpuscular Hemoglobin 28pg (25-35) Mean Corpuscular Hemoglobin Concent 32g/dL (31-37) Red Cell Distribution Width 15.7% (11.5-14.5) Platelet Count 130x10^3/uL (140-400) Neutrophils (%) (Auto) 88% (31-73) Lymphocytes (%) (Auto) 5% (24-48) Monocytes (%) (Auto) 6% (0-9) Eosinophils (%) (Auto) 1% (0-3) Basophils (%) (Auto) 0% (0-3) Neutrophils # (Auto) 5.7x10^3uL (1.8-7.7) Lymphocytes # (Auto) 0.3x10^3/uL (1.0-4.8) Monocytes # (Auto) 0.4x10^3/uL (0.0-1.1) Eosinophils # (Auto) 0.0x10^3/uL (0.0-0.7) Basophils # (Auto) 0.0x10^3/uL (0.0-0.2) Prothrombin Time 14.1SEC (11.7-14.0) Prothromb Time International Ratio 1.2 (0.8-1.1) Images Images RADHA ART STUDY LOWER EXTREM MADDI Ankle-brachial indices, 07/18/2016: Resting RADHA measurements were obtained. The right RADHA is 1.04 while the left RADHA is 1.08. IMPRESSION: Normal resting ankle-brachial indices. Left lower extremity arterial Doppler. There are monophasic waveforms throughout the left lower extremity consistent with significant proximal occlusive disease. The peroneal and anterior tibial arteries could not be visualized. There is detectable flow in the dorsalis pedis artery. IMPRESSION: 1. Monophasic waveforms throughout the left portion consistent with significant proximal occlusive disease. Slow flow within the trifurcation vessels. Assessment/Plan Assessment/Plan 1. Bilateral lower extremity cellulitis with most likely some degree of peripheral arterial disease based upon physical exam and arterial doppler results with monophasic flow to the left lower extremity. Consultation has been made to Interventional Radiology and Dr. Spence has spoke with Dr. Enriquez for an angiogram with bilateral run off with possible percutaneous intervention hopefully today. We will await the results of arterial studies to help determine next steps and further recommendations. Additionally, antiplatelet therapy of ECASA will be added. Continue local wound care, elevation and IV antibiotics. 2. Cellulitis. Agree with IV antibiotic therapy per Infectious Disease. Also agree with adding antifungal therapy. Depending upon the results of the angiogram, also agree with ID's recommendation to proceed with dermatology consultation as the appearance of skin changes somewhat unique. Also, patient has rash in stacey-area with scaly skin to penis shaft similar to right lower leg. 3. Tobacco abuse. Educated on the need for smoking cessation. 4. Hypertension. Controlled on oral antihypertensive medications. 5. Will check fasting lipid profile in a.m. to evaluate for hyperlipidemia. Thank you for the opportunity to participate in the care of this most interesting patient. Dr. Spence will see patient in the morning and provide further recommendation at that time. KEERTHI SPENCE MD 07/20/16 0832: CONSULT Allergies Allergies: Coded Allergies: No Known Drug Allergies (Unverified , 07/18/16) Assessment/Plan Assessment/Plan Agree with the above note. Patient seen and examined by Dr. Spence on 07/20/2016. 61 year old male with extensive bilateral lower extremity superficial skin ulceration and cellulitis worse in the left leg that the right. The wounds are located in the calf/ankles and the left foot. On vascular exam he has a palpable right femoral pulse, no left femoral pulse and no pedal pulses felt. Duplex of the left leg shows monophasic flow and likely inflow disease. ABIs are normal however likely falsely elevated from calcified vessels. Recommend an aortogram with bilateral runoff and possible left leg intervention. Continue IV antibiotics. Wound care to the legs. Recommend a venous duplex scan of the bilateral lower extremities to rule out DVT with swelling. Order rooke boots. EMIL OG APRN Jul 19, 2016 17:45 KEERTHI SPENCE MD Jul 20, 2016 08:32
[2016-07-19] MEDS: ASPIRIN ENTERIC COATED 81 MG TABLET.DR. PO SCH (18:41)
[2016-07-19 19:26] VITALS: BP 137/70
[2016-07-19] MEDS: MIRTAZAPINE 15 MG TABLET PO SCH (21:17)
[2016-07-19] MEDS: IBUPROFEN 400 MG TABLET. PO PRN (21:18)
[2016-07-19] MEDS: FLUCONAZOLE 100 MG TABLET. PO SCH (21:18)
[2016-07-19] MEDS: VANCOMYCIN 1 GM in IV NORMAL SALINE 250ML 250 ML IV SCH (21:19)
[2016-07-19 22:44] LABS: PH ABG 7.29 (7.35-7.45)
[2016-07-19 22:48] LABS: PCO2 ABG 71 mmHg (35-46)
[2016-07-19 22:49] LABS: HCO3 ABG 33 mmol/L (21-28); PO2 ABG 54 mmHg (65-108); SAT O2 ABG 86 % (92-99)
[2016-07-19 22:50] LABS: FIO2 ABG 50
[2016-07-19 23:22] VITALS: BP 104/61
[2016-07-20] MEDS: PIPERACILLIN/TAZOBACTAM 3.375 GM in IV NORMAL SALINE 50ML 50 ML IV SCH ×5 (00:57→23:53)
[2016-07-20] MEDS: OXYCODONE/APAP 5/325 TABLET. PO PRN ×5 (01:00→23:57)
[2016-07-20 03:20] VITALS: BP 123/68
--- NOTE | 2016-07-20 05:52 | CONS ---
DATE OF CONSULTATION: 07/19/2016 LOCATION: The patient is in room 422. REQUESTING PHYSICIAN: Dr. Rodrigez. REASON FOR CONSULTATION: Cellulitis. HISTORY OF PRESENT ILLNESS: The patient is a pleasant 61-year-old gentleman who is a former [place] . He is a very poor historian and lives in [facility]. He has history of depression, COPD, and has problems with his lower extremities for greater than a year. He states over the last 2-3 days, there have been increasing pain and redness, and he was brought to [facility] for further care and evaluation. He has been afebrile since his arrival. He had a white blood cell count of 8.6, but did have 88% neutrophils. Blood cultures were obtained. He underwent lower arterial Dopplers that showed some proximal occlusive disease. He then underwent arterial Dopplers, which showed normal resting ankle brachial indices. X-rays have some diffuse tissue swelling. He has been placed on vancomycin and Zosyn. Currently, he is sitting upright in bed. He denies any fevers or chills or sweats. He has no headaches, no change in vision or sore throat. He has occasional cough. No chest pain. No nausea, vomiting or diarrhea. Denies any trauma. PAST MEDICAL HISTORY: Positive for depression, COPD. He has had a perforated ulcer what he said was requiring surgery. 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 REVIEW OF SYSTEMS: Otherwise negative except as mentioned above. SOCIAL HISTORY: He is a smoker and former [place] . FAMILY HISTORY: Noncontributory with regard to any skin disease. ALLERGIES: No known drug allergies. CURRENT MEDICATIONS: Include vancomycin, Zosyn, Neurontin, Motrin, Remeron, spironolactone. Other meds are available and have been reviewed in the chart. PHYSICAL EXAMINATION: VITAL SIGNS: He is afebrile, temperature 98.8, pulse 99, respirations 20, blood pressure 145/71, satting 89% on 4 liters. CONSTITUTIONAL: He is cooperative. He is in no acute distress. He looks a little bit disheveled. HEENT: Pupils are equal and reactive. Oral cavity, oropharynx, he has poor dentition. NECK: Supple, no JVD. LUNGS: Clear to auscultation bilaterally. HEART: S1, S2. ABDOMEN: Protuberant. He has a well-healed incision, nontender, nondistended. EXTREMITIES: Without clubbing, no cyanosis. He has bilateral lower extremity 2+ edema that is nonpitting. He has got scaling, tinea, and erythema associated with the legs with his left one being warmer than the right. SKIN: No generalized rash, but he does have chronic changes associated with his nose, his hands, and his arms as well as his upper legs. NEUROLOGIC: He moves all extremities, though he is a poor historian. PSYCHIATRIC: Affect is appropriate. LABORATORY DATA: White count 8.6, hemoglobin 15, platelets of 137 with 88 segs, 5 lymphs. Creatinine of 0.9, glucose 120. Normal liver function study tests. Sedimentation rate was 5. Radiology reviewed in the history of present illness. IMPRESSION: 1. Lower extremity cellulitis. 2. Peripheral arterial disease. 3. Hyperglycemia. 4. Tinea. RECOMMENDATIONS: For now, we will continue the antibiotics. We will add fluconazole. Derm consult, biopsy, vascular is uncertain of the etiology, seems to have chronic skin condition. Check hemoglobin A1c. Thank you for allowing me to participate in this patient's care. If you have any questions, please do not hesitate to contact me. ERLIN FU MD DR: LAURIE/yvonne JOB#: [id number] / [id number]
[2016-07-20 06:27] LABS: HEMATOCRIT 44.4 % (39.0-53.0); HEMOGLOBIN 14.1 g/dL (13.0-17.5); RED CELL DISTRIBUTION WIDTH 15.5 % (11.5-14.5); WHITE BLOOD COUNT 4.8 x10^3/uL (4.0-11.0)
[2016-07-20 06:37] LABS: CALCIUM 8.6 mg/dL (8.5-10.1); GFR 76.2; POTASSIUM 4.7 mmol/L (3.5-5.1)
[2016-07-20 06:40] LABS: CHOLESTEROL/HDL RATIO 3.9
[2016-07-20 07:00] VITALS: BP 129/65
[2016-07-20] MEDS: IPRATRPIUM/ALBUTEROL 0.5/2.5MG 3 ML NEBU. NEB SCH ×4 (07:15→20:59)
[2016-07-20 08:12] LABS: HCO3 ABG 36 mmol/L (21-28); PH ABG 7.29 (7.35-7.45); PO2 ABG 58 mmHg (65-108); SAT O2 ABG 89 % (92-99)
--- NOTE | 2016-07-20 08:13 | RAD ---
Chest, 2 views, 07/19/2016: History: Shortness of breath The heart is mildly enlarged. The pulmonary markings are prominent. No consolidating infiltrate is seen. There is blunting of one of the posterior costophrenic angles which is probably on the right. Moderate spurring is present in the spine. A partially visualized proximal left humeral fracture appears to be old. IMPRESSION: 1. Mild cardiomegaly. 2. Mild prominence of the pulmonary markings may be due to fibrosis. 3. Blunting of the right posterior costophrenic angle compatible with a small amount of pleural fluid versus scarring.
[2016-07-20 08:15] LABS: FIO2 ABG 50; PCO2 ABG 77 mmHg (35-46)
--- NOTE | 2016-07-20 09:44 | PDOC ---
PULMONARY PROGRESS NOTES Vitals Vital Signs Date Time Temp Pulse Resp B/P Pulse Ox O2 Delivery O2 Flow Rate FiO2 07/20/16 07:17 89 Venturi Mask 15.0 07/20/16 07:00 97.5 66 16 129/65 97.5 Labs Laboratory Tests Test 07/18/16 10:15 07/19/16 09:30 07/19/16 11:00 07/19/16 14:27 Nasal Screen MRSA (PCR) Positive (Negative) Sodium Level 137mmol/L (136-145) Potassium Level 5.0mmol/L (3.5-5.1) Chloride Level 100mmol/L (98-107) Carbon Dioxide Level 32mmol/L (21-32) Anion Gap 5 (6-14) Blood Urea Nitrogen 20mg/dL (8-26) Creatinine 1.1mg/dL (0.7-1.3) Estimated GFR (Cockcroft-Gault) 68.3 Glucose Level 167mg/dL (70-99) Calcium Level 8.6mg/dL (8.5-10.1) Vancomycin Level Trough 37.2mcg/mL (10.0-20.0) Vancomycin Last Dose Date 07/19/16 Vancomycin Last Dose Time 0200 White Blood Count 6.5x10^3/uL (4.0-11.0) Red Blood Count 4.99x10^6/uL (4.30-5.70) Hemoglobin 14.1g/dL (13.0-17.5) Hematocrit 44.3% (39.0-53.0) Mean Corpuscular Volume 89fL (79-100) Mean Corpuscular Hemoglobin 28pg (25-35) Mean Corpuscular Hemoglobin Concent 32g/dL (31-37) Red Cell Distribution Width 15.7% (11.5-14.5) Platelet Count 130x10^3/uL (140-400) Neutrophils (%) (Auto) 88% (31-73) Lymphocytes (%) (Auto) 5% (24-48) Monocytes (%) (Auto) 6% (0-9) Eosinophils (%) (Auto) 1% (0-3) Basophils (%) (Auto) 0% (0-3) Neutrophils # (Auto) 5.7x10^3uL (1.8-7.7) Lymphocytes # (Auto) 0.3x10^3/uL (1.0-4.8) Monocytes # (Auto) 0.4x10^3/uL (0.0-1.1) Eosinophils # (Auto) 0.0x10^3/uL (0.0-0.7) Basophils # (Auto) 0.0x10^3/uL (0.0-0.2) Prothrombin Time 14.1SEC (11.7-14.0) Prothromb Time International Ratio 1.2 (0.8-1.1) Test 07/19/16 21:57 07/20/16 05:55 07/20/16 08:00 O2 Saturation 86% (92-99) 89% (92-99) Arterial Blood pH 7.29 (7.35-7.45) 7.29 (7.35-7.45) Arterial Blood pCO2 at Patient Temp 71mmHg (35-46) 77mmHg (35-46) Arterial Blood pO2 at Patient Temp 54mmHg (65-108) 58mmHg (65-108) Arterial Blood HCO3 33mmol/L (21-28) 36mmol/L (21-28) Arterial Blood Base Excess 4mmol/L (-3-3) 6mmol/L (-3-3) FiO2 50 50 White Blood Count 4.8x10^3/uL (4.0-11.0) Red Blood Count 5.00x10^6/uL (4.30-5.70) Hemoglobin 14.1g/dL (13.0-17.5) Hematocrit 44.4% (39.0-53.0) Mean Corpuscular Volume 89fL (79-100) Mean Corpuscular Hemoglobin 28pg (25-35) Mean Corpuscular Hemoglobin Concent 32g/dL (31-37) Red Cell Distribution Width 15.5% (11.5-14.5) Platelet Count 127x10^3/uL (140-400) Sodium Level 140mmol/L (136-145) Potassium Level 4.7mmol/L (3.5-5.1) Chloride Level 102mmol/L (98-107) Carbon Dioxide Level 34mmol/L (21-32) Anion Gap 4 (6-14) Blood Urea Nitrogen 20mg/dL (8-26) Creatinine 1.0mg/dL (0.7-1.3) Estimated GFR (Cockcroft-Gault) 76.2 Glucose Level 88mg/dL (70-99) Calcium Level 8.6mg/dL (8.5-10.1) Triglycerides Level 60mg/dL (0-150) Cholesterol Level 138mg/dL (0-200) LDL Cholesterol, Calculated 91mg/dL (0-100) VLDL Cholesterol, Calculated 12mg/dL (0-40) HDL Cholesterol 35mg/dL (40-60) Cholesterol/HDL Ratio 3.9 Laboratory Tests Test 07/19/16 11:00 07/19/16 14:27 07/19/16 21:57 07/20/16 05:55 White Blood Count 6.5x10^3/uL (4.0-11.0) 4.8x10^3/uL (4.0-11.0) Red Blood Count 4.99x10^6/uL (4.30-5.70) 5.00x10^6/uL (4.30-5.70) Hemoglobin 14.1g/dL (13.0-17.5) 14.1g/dL (13.0-17.5) Hematocrit 44.3% (39.0-53.0) 44.4% (39.0-53.0) Mean Corpuscular Volume 89fL (79-100) 89fL (79-100) Mean Corpuscular Hemoglobin 28pg (25-35) 28pg (25-35) Mean Corpuscular Hemoglobin Concent 32g/dL (31-37) 32g/dL (31-37) Red Cell Distribution Width 15.7% (11.5-14.5) 15.5% (11.5-14.5) Platelet Count 130x10^3/uL (140-400) 127x10^3/uL (140-400) Neutrophils (%) (Auto) 88% (31-73) Lymphocytes (%) (Auto) 5% (24-48) Monocytes (%) (Auto) 6% (0-9) Eosinophils (%) (Auto) 1% (0-3) Basophils (%) (Auto) 0% (0-3) Neutrophils # (Auto) 5.7x10^3uL (1.8-7.7) Lymphocytes # (Auto) 0.3x10^3/uL (1.0-4.8) Monocytes # (Auto) 0.4x10^3/uL (0.0-1.1) Eosinophils # (Auto) 0.0x10^3/uL (0.0-0.7) Basophils # (Auto) 0.0x10^3/uL (0.0-0.2) Prothrombin Time 14.1SEC (11.7-14.0) Prothromb Time International Ratio 1.2 (0.8-1.1) O2 Saturation 86% (92-99) Arterial Blood pH 7.29 (7.35-7.45) Arterial Blood pCO2 at Patient Temp 71mmHg (35-46) Arterial Blood pO2 at Patient Temp 54mmHg (65-108) Arterial Blood HCO3 33mmol/L (21-28) Arterial Blood Base Excess 4mmol/L (-3-3) FiO2 50 Sodium Level 140mmol/L (136-145) Potassium Level 4.7mmol/L (3.5-5.1) Chloride Level 102mmol/L (98-107) Carbon Dioxide Level 34mmol/L (21-32) Anion Gap 4 (6-14) Blood Urea Nitrogen 20mg/dL (8-26) Creatinine 1.0mg/dL (0.7-1.3) Estimated GFR (Cockcroft-Gault) 76.2 Glucose Level 88mg/dL (70-99) Calcium Level 8.6mg/dL (8.5-10.1) Triglycerides Level 60mg/dL (0-150) Cholesterol Level 138mg/dL (0-200) LDL Cholesterol, Calculated 91mg/dL (0-100) VLDL Cholesterol, Calculated 12mg/dL (0-40) HDL Cholesterol 35mg/dL (40-60) Cholesterol/HDL Ratio 3.9 Test 07/20/16 08:00 O2 Saturation 89% (92-99) Arterial Blood pH 7.29 (7.35-7.45) Arterial Blood pCO2 at Patient Temp 77mmHg (35-46) Arterial Blood pO2 at Patient Temp 58mmHg (65-108) Arterial Blood HCO3 36mmol/L (21-28) Arterial Blood Base Excess 6mmol/L (-3-3) FiO2 50 Medications Active Scripts Medications Dose Route/Sig Days Date Category Ventolin Hfa Inhaler (Albuterol Sulfate) 18 Gm Hfa.aer.ad 2 Puff INH PRN Q6HRS PRN 07/18/16 Reported Ibuprofen 400 Mg Tablet 400 Mg PO TID PRN 07/18/16 Reported Neurontin (Gabapentin) 100 Mg Capsule 100 Mg PO BID 07/18/16 Reported Mirtazapine 30 Mg Tablet 1 Tab PO QHS 07/18/16 Reported Spironolactone 25 Mg Tablet 1 Tab PO DAILY 07/18/16 Reported Duoneb 0.5-3(2.5) Mg/3 Ml (Albuterol/Ipratropium) 3 Ml Ampul.neb 3 Ml NEB QID PRN 07/18/16 Reported Impression . full note dictated prn and QHS bipap for A/C resp failure Ct chest rule out fibrosis ELISHA DAVILA MD Jul 20, 2016 09:44
[2016-07-20] MEDS: FLUCONAZOLE 100 MG TABLET. PO SCH (09:49)
[2016-07-20] MEDS: GABAPENTIN 100 MG CAPSULE. PO SCH ×2 (09:50→21:16)
[2016-07-20] MEDS: VANCOMYCIN 1 GM in IV NORMAL SALINE 250ML 250 ML IV SCH ×2 (09:50→21:22)
[2016-07-20] MEDS: SPIRONOLACTONE 25 MG TABLET PO SCH (09:50)
[2016-07-20] MEDS: ASPIRIN ENTERIC COATED 81 MG TABLET.DR. PO SCH (09:50)
[2016-07-20] MEDS: VANCOMYCIN PER PHARMACY MC PRN (10:36)
--- NOTE | 2016-07-20 10:46 | RAD ---
Clinical Indication: Bilateral lower extremity edema Technique: Study is dated July 20, 2016. Gibson scale, color flow and spectral waveform analysis was performed of both lower extremities with and without compression. Findings: There is normal compressibility of all visualized vein segments. No evidence of DVT is present on grayscale or color images. There is normal phasicity of waveform. There is normal augmentation . Impression: No evidence of deep vein thrombosis in either lower extremity.
[2016-07-20 11:00] VITALS: BP 121/77
--- NOTE | 2016-07-20 11:20 | PDOC ---
PROGRESS NOTES Chief Complaint Chief Complaint Leg pain ASSESSMENT AND PLAN: 1. LE cellulitis: on Abx 2. PVD: art US with occlusive dz. eval with arteriogram aborted 2/2 hypoxia. Vasc surg consult obtained 3. Hypoxic, hypercarbic respir status w/o distress: suspect chronic, COPD, with ongoing tobacco abuse. supplemental O2, nebs. very hypercarbic this AM, asymptomatic. minimize suppl O2. pt initially declined BiPAP, now amenable. recheck ABG in PM 4. Tobacco use: <1/2 ppd now, with >100 p/y hx. encouraged complete cessation 5. HTN: on spironolactone alone (suspect for chronic venous stasis). should be on BB, will start 6. Psych: unclear hx (?depression), but on mirtazapine. cont home med. 7. Thrombocytopenia: stable in triple-digit lowish range. 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 monitor 8. Prophylaxis: sq heparin for now; hold prior to interventions Vitals Vitals Vital Signs Date Time Temp Pulse Resp B/P Pulse Ox O2 Delivery O2 Flow Rate FiO2 07/20/16 10:39 95 BiPAP/CPAP 07/20/16 07:17 15.0 07/20/16 07:00 97.5 66 16 129/65 97.5 Physical Exam General: Alert, Oriented X3, Cooperative, No acute distress Heart: Regular rate Lungs: Clear (decreased BS) Abdomen: Normal bowel sounds, No tenderness, Other (Rounded and somewhat protruding. Patient states this is normal for him.) Extremities: No clubbing, Other (deep purple discoloration from bilat dorsi of feet to almost knees. open wounds covered with gauze.) Skin: Other (very dry, superficial blistering on LE ) Labs LABS Laboratory Tests Test 07/19/16 14:27 07/19/16 21:57 07/20/16 05:55 07/20/16 08:00 Prothrombin Time 14.1SEC (11.7-14.0) Prothromb Time International Ratio 1.2 (0.8-1.1) O2 Saturation 86% (92-99) 89% (92-99) Arterial Blood pH 7.29 (7.35-7.45) 7.29 (7.35-7.45) Arterial Blood pCO2 at Patient Temp 71mmHg (35-46) 77mmHg (35-46) Arterial Blood pO2 at Patient Temp 54mmHg (65-108) 58mmHg (65-108) Arterial Blood HCO3 33mmol/L (21-28) 36mmol/L (21-28) Arterial Blood Base Excess 4mmol/L (-3-3) 6mmol/L (-3-3) FiO2 50 50 White Blood Count 4.8x10^3/uL (4.0-11.0) Red Blood Count 5.00x10^6/uL (4.30-5.70) Hemoglobin 14.1g/dL (13.0-17.5) Hematocrit 44.4% (39.0-53.0) Mean Corpuscular Volume 89fL (79-100) Mean Corpuscular Hemoglobin 28pg (25-35) Mean Corpuscular Hemoglobin Concent 32g/dL (31-37) Red Cell Distribution Width 15.5% (11.5-14.5) Platelet Count 127x10^3/uL (140-400) Sodium Level 140mmol/L (136-145) Potassium Level 4.7mmol/L (3.5-5.1) Chloride Level 102mmol/L (98-107) Carbon Dioxide Level 34mmol/L (21-32) Anion Gap 4 (6-14) Blood Urea Nitrogen 20mg/dL (8-26) Creatinine 1.0mg/dL (0.7-1.3) Estimated GFR (Cockcroft-Gault) 76.2 Glucose Level 88mg/dL (70-99) Calcium Level 8.6mg/dL (8.5-10.1) Triglycerides Level 60mg/dL (0-150) Cholesterol Level 138mg/dL (0-200) LDL Cholesterol, Calculated 91mg/dL (0-100) VLDL Cholesterol, Calculated 12mg/dL (0-40) HDL Cholesterol 35mg/dL (40-60) Cholesterol/HDL Ratio 3.9 Review of Systems Review of Systems uncomfortable with BiPAP mask. concerned about legs IWONA GUZMAN MD Jul 20, 2016 11:20
--- NOTE | 2016-07-20 11:34 | PDOC ---
Infectious Disease Note Subjective Subjective About the same but SOA - needs Bipap ROS ROS GEN: Denies fevers, chills, sweats HEENT: Denies blurred vision, sore throat CV: Denies chest pain RESP: Denies shortness of air, cough GI: Denies n/v/d NEURO: Denies confusion, dizziness MSK: Denies weakness, joint pain/swelling Vital Sign Vital Signs Vital Signs Date Time Temp Pulse Resp B/P Pulse Ox O2 Delivery O2 Flow Rate FiO2 07/20/16 10:39 95 BiPAP/CPAP 07/20/16 07:17 15.0 07/20/16 07:00 97.5 66 16 129/65 97.5 Physical Exam PHYSICAL EXAM GENERAL: NAD, Alert HEENT: PERRL, OC/OP - clear. Nose discolored NECK: Supple, no JVD, no LN LUNGS: Clear HEART: S1S2, no gallop, no murmur ABD: Soft, NT, no organomegaly, no rebound EXT: 2 plus edema, no cyanosis/ Scaly. Less erythema AIR TRAFFIC CONTROLLER: Alert, oriented x 3, no focal neurologic deficit SKIN: No rash IV: ok Labs Lab Laboratory Tests Test 07/19/16 14:27 07/19/16 21:57 07/20/16 05:55 07/20/16 08:00 Prothrombin Time 14.1SEC (11.7-14.0) Prothromb Time International Ratio 1.2 (0.8-1.1) O2 Saturation 86% (92-99) 89% (92-99) Arterial Blood pH 7.29 (7.35-7.45) 7.29 (7.35-7.45) Arterial Blood pCO2 at Patient Temp 71mmHg (35-46) 77mmHg (35-46) Arterial Blood pO2 at Patient Temp 54mmHg (65-108) 58mmHg (65-108) Arterial Blood HCO3 33mmol/L (21-28) 36mmol/L (21-28) Arterial Blood Base Excess 4mmol/L (-3-3) 6mmol/L (-3-3) FiO2 50 50 White Blood Count 4.8x10^3/uL (4.0-11.0) Red Blood Count 5.00x10^6/uL (4.30-5.70) Hemoglobin 14.1g/dL (13.0-17.5) Hematocrit 44.4% (39.0-53.0) Mean Corpuscular Volume 89fL (79-100) Mean Corpuscular Hemoglobin 28pg (25-35) Mean Corpuscular Hemoglobin Concent 32g/dL (31-37) Red Cell Distribution Width 15.5% (11.5-14.5) Platelet Count 127x10^3/uL (140-400) Sodium Level 140mmol/L (136-145) Potassium Level 4.7mmol/L (3.5-5.1) Chloride Level 102mmol/L (98-107) Carbon Dioxide Level 34mmol/L (21-32) Anion Gap 4 (6-14) Blood Urea Nitrogen 20mg/dL (8-26) Creatinine 1.0mg/dL (0.7-1.3) Estimated GFR (Cockcroft-Gault) 76.2 Glucose Level 88mg/dL (70-99) Calcium Level 8.6mg/dL (8.5-10.1) Triglycerides Level 60mg/dL (0-150) Cholesterol Level 138mg/dL (0-200) LDL Cholesterol, Calculated 91mg/dL (0-100) VLDL Cholesterol, Calculated 12mg/dL (0-40) HDL Cholesterol 35mg/dL (40-60) Cholesterol/HDL Ratio 3.9 Objective Assessment LE Cellulitis PAD hyperglycemia Tinea Plan Plan of Care Cont Abx Add fluconazole Derm consult/biopsy if vascular uncertain of etiology. Seems to have a generalized skin condition Check hgA1 c Await Pulm f/u ERLIN FU MD Jul 20, 2016 11:34
[2016-07-20 15:00] VITALS: BP 135/72
[2016-07-20 19:00] VITALS: BP 130/74
[2016-07-20] MEDS: MIRTAZAPINE 15 MG TABLET PO SCH (21:17)
[2016-07-20] MEDS: IBUPROFEN 400 MG TABLET. PO PRN (21:17)
[2016-07-20 23:00] VITALS: BP 128/71
[2016-07-21] VITALS (7 sets, daily range): BP systolic 90–148; BP diastolic 50–82
--- NOTE | 2016-07-21 02:08 | CONS ---
DATE OF CONSULTATION: 07/20/2016 ATTENDING PHYSICIAN: Dr. Jacquelyn Rodrigez REASON FOR CONSULTATION: The patient is seen in pulmonary consultation for acute on chronic hypercapnic hypoxemic respiratory failure. Latest arterial blood gas revealed a pH of 7.29, pCO2 of 77, pO2 of 58. HISTORY OF PRESENT ILLNESS: The patient is a 61-year-old with a history of COPD, currently smoking, presented with lower extremity swelling and redness. He is currently undergoing workup. He was having some difficulty breathing. Arterial blood gases obtained yesterday revealing the pH of 7.29, pCO2 of 71, pO2 of 54. He was placed on BiPAP. He does not particularly like the BiPAP. His repeat arterial blood gases are basically about the same. His pH was 7.29. The patient normally wears 3 liters of oxygen at home. He has been having some increasing shortness of breath, cough, mostly nonproductive. He currently smokes. PAST MEDICAL HISTORY: Chronic respiratory failure, tobacco dependence, COPD. Hypertension. Bilateral lower extremity cellulitis. History of alcohol. Previous ruptured gastric ulcer status post surgical intervention. Left shoulder fracture with repair. Left hip fracture with repair. 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 The patient worked in the [employer]. PAST SURGICAL HISTORY SYSTEMS: As indicated above. ALLERGIES: No known drug allergies. SOCIAL HISTORY: He resides at a [facility], he has been there for a year, smokes less than 1 pack of cigarettes a day, drinks several days out of the week. Denies any alcohol intake. FAMILY HISTORY: Noncontributory. CURRENT MEDICATION: List was reviewed. Please see the MRAD. REVIEW OF SYSTEMS: As indicated above, otherwise a 10-point system was reviewed and negative. PHYSICAL EXAMINATION: GENERAL: The patient appeared to be much older than stated age. VITAL SIGNS: He was currently on 2-3 liters of oxygen supplementation. He was able to complete full sentences, respiratory rate is slightly elevated. HEENT: Eyes, the sclerae were nonicteric. NECK: Jugular venous distention could not be assessed secondary to body habitus. CHEST: Full expansion. LUNGS: Poor airway flow with no wheezes. CARDIOVASCULAR: Regular rate and rhythm with S1, S2, no S3. ABDOMEN: Evidence of previous surgery, obese. EXTREMITIES: Boots in place. NEUROLOGIC: The patient was awake, alert, following commands. A detailed neuro exam was not performed. LABORATORY DATA: Arterial blood gas as indicated above. White count was normal. Hemoglobin and hematocrit were noted. INR was 2.2. Electrolytes were noted. Chest x-ray reviewed, some increased lung markings compatible with fibrosis. IMPRESSION: 1. Acute on chronic hypoxemic hypercapnic respiratory failure, multifactorial in nature. 2. Chest x-ray indicative of pulmonary fibrosis. 3. Bilateral lower extremity cellulitis with evidence of peripheral arterial disease. Workup in progress. 4. Tobacco dependent. 5. Hypertension. 6. Obesity. 7. Significant occupational exposure. The patient worked in the [employer]. PLAN: We will continue BiPAP at bedtime, adjust pressures to make it more comfortable for the patient to utilize. Continue oxygen supplementation throughout the day. Obtain CT chest. Continue current antibiotics per ID. Nebulized treatments. The patient instructed on the importance of discontinuing tobacco use. I do appreciate the privilege in sharing in the patient's care. ELISHA DAVILA MD DR: SAL/yvonne JOB#: [id number] / [id number]
[2016-07-21] MEDS: PIPERACILLIN/TAZOBACTAM 3.375 GM in IV NORMAL SALINE 50ML 50 ML IV SCH ×3 (05:46→17:45)
[2016-07-21] MEDS: OXYCODONE/APAP 5/325 TABLET. PO PRN ×3 (05:47→21:16)
[2016-07-21] MEDS: IPRATRPIUM/ALBUTEROL 0.5/2.5MG 3 ML NEBU. NEB SCH ×4 (06:54→19:41)
[2016-07-21] MEDS: ASPIRIN ENTERIC COATED 81 MG TABLET.DR. PO SCH ×2 (08:00→10:16)
--- NOTE | 2016-07-21 08:25 | PDOC ---
Infectious Disease Note Subjective Subjective SOA improved, on NC States he is having a sleep study done today Pain in legs is about the same S/p CT scan ROS ROS GEN: Denies fevers, chills, sweats HEENT: Denies blurred vision, sore throat CV: Denies chest pain RESP: Denies shortness of air, cough GI: Denies n/v/d NEURO: Denies confusion, dizziness MSK: Denies weakness, +pain/swelling bilateral LE Vital Sign Vital Signs Vital Signs Date Time Temp Pulse Resp B/P Pulse Ox O2 Delivery O2 Flow Rate FiO2 07/21/16 08:09 Nasal Cannula 4.0 07/21/16 06:54 87 07/21/16 03:00 98.4 90 18 143/73 98.4 Physical Exam PHYSICAL EXAM GENERAL: NAD, Alert HEENT: PERRL, OC/OP - clear. Nose discolored NECK: Supple, no JVD, no LN LUNGS: Clear HEART: S1S2, no gallop, no murmur ABD: Soft, NT, no organomegaly, no rebound EXT: Edema imporved, No cyanosis. Scaly, Less erythematous LE bilaterally. CARD CLEANER: Alert, oriented x 3, no focal neurologic deficit SKIN: No rash IV: ok Objective Assessment LE Cellulitis - preliminary results gram neg rods and s. aureus from leg wound culture - improved PAD Hyperglycemia Tinea Pre-diabetes, HbA1c 6.0 Plan Plan of Care Cont Abx and fluconazole Derm consult/biopsy may be helpful. Seems to have a generalized skin condition. + pulm fibrosis (sed rate nml) Await Pulm f/u/CT scan ERLIN FU MD Jul 21, 2016 08:24
[2016-07-21] MEDS: VANCOMYCIN PER PHARMACY MC PRN (09:40)
[2016-07-21] MEDS: GABAPENTIN 100 MG CAPSULE. PO SCH ×2 (10:15→21:16)
[2016-07-21] MEDS: SPIRONOLACTONE 25 MG TABLET PO SCH (10:16)
[2016-07-21] MEDS: IBUPROFEN 400 MG TABLET. PO PRN (10:16)
[2016-07-21] MEDS: FLUCONAZOLE 100 MG TABLET. PO SCH (10:16)
[2016-07-21] MEDS: VANCOMYCIN 1 GM in IV NORMAL SALINE 250ML 250 ML IV SCH ×2 (10:17→21:16)
--- NOTE | 2016-07-21 10:58 | PDOC ---
PULMONARY PROGRESS NOTES Subjective PT NOT MORE SOA Vitals Vital Signs Date Time Temp Pulse Resp B/P Pulse Ox O2 Delivery O2 Flow Rate FiO2 07/21/16 10:16 Nasal Cannula 6.0 07/21/16 07:00 98.0 77 16 122/71 92 98.0 ROS: No Nausea, No Chest Pain, No Abdominal Pain, No Increase Cough Lungs: Clear, Other (POOR AIR FLOW) Cardiovascular: S1, S2 Abdomen: Soft Neuro Exam: Alert Extremities: Other Skin: Warm (EDEMA) Labs Laboratory Tests Test 07/19/16 11:00 07/19/16 14:27 07/19/16 21:57 07/20/16 05:55 White Blood Count 6.5x10^3/uL (4.0-11.0) 4.8x10^3/uL (4.0-11.0) Red Blood Count 4.99x10^6/uL (4.30-5.70) 5.00x10^6/uL (4.30-5.70) Hemoglobin 14.1g/dL (13.0-17.5) 14.1g/dL (13.0-17.5) Hematocrit 44.3% (39.0-53.0) 44.4% (39.0-53.0) Mean Corpuscular Volume 89fL (79-100) 89fL (79-100) Mean Corpuscular Hemoglobin 28pg (25-35) 28pg (25-35) Mean Corpuscular Hemoglobin Concent 32g/dL (31-37) 32g/dL (31-37) Red Cell Distribution Width 15.7% (11.5-14.5) 15.5% (11.5-14.5) Platelet Count 130x10^3/uL (140-400) 127x10^3/uL (140-400) Neutrophils (%) (Auto) 88% (31-73) Lymphocytes (%) (Auto) 5% (24-48) Monocytes (%) (Auto) 6% (0-9) Eosinophils (%) (Auto) 1% (0-3) Basophils (%) (Auto) 0% (0-3) Neutrophils # (Auto) 5.7x10^3uL (1.8-7.7) Lymphocytes # (Auto) 0.3x10^3/uL (1.0-4.8) Monocytes # (Auto) 0.4x10^3/uL (0.0-1.1) Eosinophils # (Auto) 0.0x10^3/uL (0.0-0.7) Basophils # (Auto) 0.0x10^3/uL (0.0-0.2) Prothrombin Time 14.1SEC (11.7-14.0) Prothromb Time International Ratio 1.2 (0.8-1.1) O2 Saturation 86% (92-99) Arterial Blood pH 7.29 (7.35-7.45) Arterial Blood pCO2 at Patient Temp 71mmHg (35-46) Arterial Blood pO2 at Patient Temp 54mmHg (65-108) Arterial Blood HCO3 33mmol/L (21-28) Arterial Blood Base Excess 4mmol/L (-3-3) FiO2 50 Sodium Level 140mmol/L (136-145) Potassium Level 4.7mmol/L (3.5-5.1) Chloride Level 102mmol/L (98-107) Carbon Dioxide Level 34mmol/L (21-32) Anion Gap 4 (6-14) Blood Urea Nitrogen 20mg/dL (8-26) Creatinine 1.0mg/dL (0.7-1.3) Estimated GFR (Cockcroft-Gault) 76.2 Glucose Level 88mg/dL (70-99) Hemoglobin A1c 6.0% (4.8-5.6) Calcium Level 8.6mg/dL (8.5-10.1) Triglycerides Level 60mg/dL (0-150) Cholesterol Level 138mg/dL (0-200) LDL Cholesterol, Calculated 91mg/dL (0-100) VLDL Cholesterol, Calculated 12mg/dL (0-40) HDL Cholesterol 35mg/dL (40-60) Cholesterol/HDL Ratio 3.9 Test 07/20/16 08:00 07/21/16 08:30 O2 Saturation 89% (92-99) Arterial Blood pH 7.29 (7.35-7.45) Arterial Blood pCO2 at Patient Temp 77mmHg (35-46) Arterial Blood pO2 at Patient Temp 58mmHg (65-108) Arterial Blood HCO3 36mmol/L (21-28) Arterial Blood Base Excess 6mmol/L (-3-3) FiO2 50 Vancomycin Level Trough 16.7mcg/mL (10.0-20.0) Vancomycin Last Dose Date 07/20/16 Vancomycin Last Dose Time 2099 Laboratory Tests Test 07/21/16 08:30 Vancomycin Level Trough 16.7mcg/mL (10.0-20.0) Vancomycin Last Dose Date 07/20/16 Vancomycin Last Dose Time 2100 Medications Active Scripts Medications Dose Route/Sig Days Date Category Ventolin Hfa Inhaler (Albuterol Sulfate) 18 Gm Hfa.aer.ad 2 Puff INH PRN Q6HRS PRN 07/18/16 Reported Ibuprofen 400 Mg Tablet 400 Mg PO TID PRN 07/18/16 Reported Neurontin (Gabapentin) 100 Mg Capsule 100 Mg PO BID 07/18/16 Reported Mirtazapine 30 Mg Tablet 1 Tab PO QHS 07/18/16 Reported Spironolactone 25 Mg Tablet 1 Tab PO DAILY 07/18/16 Reported Duoneb 0.5-3(2.5) Mg/3 Ml (Albuterol/Ipratropium) 3 Ml Ampul.neb 3 Ml NEB QID PRN 07/18/16 Reported Impression . 1. Acute on chronic hypoxemic hypercapnic respiratory failure, multifactorial in nature. 2.pulmonary fibrosis. 3. Bilateral lower extremity cellulitis with evidence of peripheral arterial disease. Workup in progress. 4. Tobacco dependent. 5. Hypertension. 6. Obesity. 7. Significant occupational exposure. The patient worked in the [employer]. 8. Suspect ARNEL/OHS CT Chest 1. Emphysema. 2. Moderate interlobular septal thickening in the lungs suggesting interstitial edema, although there may be a component of fibrosis. 3. Tiny right pleural effusion. 4. Mild right lower lobe atelectasis and/or pneumonitis. 5. Tiny pericardial effusion. 6. Probable cholelithiasis. Plan . Spoke with Dr Enriquez i think it is unsafe to perfrom any interventions with intubating patient We will continue BiPAP at bedtime, adjust pressures to make it more comfortable , pt not liking idea Continue oxygen supplementation throughout the day. Lasix Continue current antibiotics per ID. Nebulized treatments. The patient instructed on the importance of discontinuing tobacco use. ELISHA DAVILA MD Jul 21, 2016 10:58
--- NOTE | 2016-07-21 13:02 | PDOC ---
Provider Note Provider Note IR Note: Mr Manuel still needs bilateral lower extremity angio +/- intervention, which was deferred Tuesday due to hypercapnic respiratory failure. Discussed case with Dr uW---he feels that IR could proceed with angio/ intervention tomorrow, only with intubation per anesthesia. This has been tentatively scheduled with anesthesia for tomorrow afternoon, if OK with PCP. No coagulopathy or current renal insufficiency. NPO post MN tonight. Thanks for the referral. MOISÉS COLLINS MD Jul 21, 2016 13:02
--- NOTE | 2016-07-21 14:24 | RAD ---
CT of the chest without contrast, 07/21/2016: History: Fibrosis Noncontrast scans were obtained as requested. There is mild calcific plaquing of the thoracic aorta and its branches without evidence of aneurysm. A small amount of pericardial fluid is present. There are calcified mediastinal and right hilar lymph nodes compatible with old granulomatous disease. There is a precarinal lymph node of borderline size. Emphysematous changes are present in the lungs. There are scattered linear parenchymal scars. There is interlobular septal thickening. There is volume loss and mild infiltrate in the right lung. No centrally obstructing mass is seen. There is a small amount of right-sided pleural fluid. There is a suggestion of a trace amount of pleural fluid in the left posterior costophrenic angle. A tiny radiopacity is noted along the posterior wall of the gallbladder raises the possibility of cholelithiasis. IMPRESSION: 1. Emphysema. 2. Moderate interlobular septal thickening in the lungs suggesting interstitial edema, although there may be a component of fibrosis. 3. Tiny right pleural effusion. 4. Mild right lower lobe atelectasis and/or pneumonitis. 5. Tiny pericardial effusion. 6. Probable cholelithiasis. PQRS Compliance Statement: One or more of the following individualized dose reduction techniques were utilized for this examination: 1. Automated exposure control 2. Adjustment of the mA and/or kV according to patient size 3. Use of iterative reconstruction technique
--- NOTE | 2016-07-21 17:44 | PDOC ---
PROGRESS NOTES Chief Complaint Chief Complaint Leg pain ASSESSMENT AND PLAN: 1. LE cellulitis: on Abx. ID following 2. PVD: art US with occlusive dz. eval with arteriogram aborted 2/2 hypoxia; plan to proceed tomorrow with anesthesia/intub, as discussed by Mina Bey 3. Hypoxic, hypercarbic respir status w/o distress: suspect chronic, COPD, with ongoing tobacco abuse. supplemental O2, nebs. much improved today. CT chest with emphysema, interstitial thickening (edema vs fibrosis). appreciate Dr Wu's input: BiPAP at night 4. Tobacco use: <1/2 ppd now, with >100 p/y hx. once again, encouraged complete cessation 5. HTN: on spironolactone alone (suspect for chronic venous stasis). should be on BB (for PVD, prob CAD), but will hold off 2/2 COPD. started YOVANA-I 6. DM: borderline; HgbA1c sl elevated, but too low to start meds. monitor w / ISS. diabetic diet, nutritional consult 6. Psych: unclear hx (?depression), but on mirtazapine. cont home med. 7. Thrombocytopenia: stable in triple-digit lowish range. 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 monitor 8. Prophylaxis: sq heparin for now; hold prior to interventions Vitals Vitals Vital Signs Date Time Temp Pulse Resp B/P Pulse Ox O2 Delivery O2 Flow Rate FiO2 07/21/16 15:38 BiPAP/CPAP 07/21/16 11:53 6.0 07/21/16 11:00 97.6 82 18 148/82 85 97.6 Physical Exam General: Alert, Oriented X3, Cooperative, No acute distress Heart: Regular rate Abdomen: Normal bowel sounds, No tenderness, Other (Rounded and somewhat protruding. Patient states this is normal for him.) Extremities: No clubbing, Other (deep purple discoloration from bilat dorsi of feet to almost knees. open wounds covered with gauze.) Skin: Other (very dry, superficial blistering on LE ) Labs LABS Laboratory Tests Test 07/21/16 08:30 Vancomycin Level Trough 16.7mcg/mL (10.0-20.0) Vancomycin Last Dose Date 07/20/16 Vancomycin Last Dose Time 2100 Review of Systems Review of Systems leg pain persisting. no respir issues. Comment Review of Relevant I have reviewed the following items gosia (where applicable) has been applied. Labs Laboratory Tests Test 07/19/16 21:57 07/20/16 05:55 07/20/16 08:00 07/21/16 08:30 O2 Saturation 86% (92-99) 89% (92-99) Arterial Blood pH 7.29 (7.35-7.45) 7.29 (7.35-7.45) Arterial Blood pCO2 at Patient Temp 71mmHg (35-46) 77mmHg (35-46) Arterial Blood pO2 at Patient Temp 54mmHg (65-108) 58mmHg (65-108) Arterial Blood HCO3 33mmol/L (21-28) 36mmol/L (21-28) Arterial Blood Base Excess 4mmol/L (-3-3) 6mmol/L (-3-3) FiO2 50 50 White Blood Count 4.8x10^3/uL (4.0-11.0) Red Blood Count 5.00x10^6/uL (4.30-5.70) Hemoglobin 14.1g/dL (13.0-17.5) Hematocrit 44.4% (39.0-53.0) Mean Corpuscular Volume 89fL (79-100) Mean Corpuscular Hemoglobin 28pg (25-35) Mean Corpuscular Hemoglobin Concent 32g/dL (31-37) Red Cell Distribution Width 15.5% (11.5-14.5) Platelet Count 127x10^3/uL (140-400) Sodium Level 140mmol/L (136-145) Potassium Level 4.7mmol/L (3.5-5.1) Chloride Level 102mmol/L (98-107) Carbon Dioxide Level 34mmol/L (21-32) Anion Gap 4 (6-14) Blood Urea Nitrogen 20mg/dL (8-26) Creatinine 1.0mg/dL (0.7-1.3) Estimated GFR (Cockcroft-Gault) 76.2 Glucose Level 88mg/dL (70-99) Hemoglobin A1c 6.0% (4.8-5.6) Calcium Level 8.6mg/dL (8.5-10.1) Triglycerides Level 60mg/dL (0-150) Cholesterol Level 138mg/dL (0-200) LDL Cholesterol, Calculated 91mg/dL (0-100) VLDL Cholesterol, Calculated 12mg/dL (0-40) HDL Cholesterol 35mg/dL (40-60) Cholesterol/HDL Ratio 3.9 Vancomycin Level Trough 16.7mcg/mL (10.0-20.0) Vancomycin Last Dose Date 07/20/16 Vancomycin Last Dose Time 2100 Laboratory Tests Test 07/21/16 08:30 Vancomycin Level Trough 16.7mcg/mL (10.0-20.0) Vancomycin Last Dose Date 07/20/16 Vancomycin Last Dose Time 2100 Microbiology 07/18/16 Blood Culture - Preliminary, Resulted NO GROWTH AFTER 3 DAYS 07/19/16 Anaerobic/Aerobic Culture, Resulted Pending 07/19/16 Anaerobic Culture Result 1 (YELITZA), Resulted Pending 07/19/16 Aerobic Culture - Preliminary, Resulted 07/19/16 Aerobic Culture Result 1 (YELITZA) - Preliminary, Resulted 07/19/16 Aerobic Culture Result 2 (YELITZA) - Preliminary, Resulted 07/19/16 Aerobic Culture Result 3 (YELITZA) - Preliminary, Resulted 07/19/16 Aerobic Culture Result 4 (YELITZA) - Preliminary, Resulted Medications Current Medications Vancomycin HCl 1 each 1 each PRN DAILY PRN [facility] PHARMACY TO DOSE Last administered on 07/21/16 09:40; Start 07/18/16 at 09:00 Sodium Chloride (Iv Sodium Chloride 0.9% 1000ml Bag) 1,000 ml @ 1,000 mls/hr Q1H IV Last administered on 07/18/16 09:49; Start 07/18/16 at 08:54; Stop 04/24 at 09:53; Status DC Sodium Chloride (Normal Saline Flush) 10 ml QSHIFT PRN IV AFTER MEDS AND BLOOD DRAWS Last administered on 07/18/16 09:49; Start 07/18/16 at 09:00 Piperacillin Sod/ Tazobactam Sod (Zosyn Per Pharmacy) 1 each PRN DAILY PRN SEE COMMENTS; Start 07/18/16 at 09:00 Morphine Sulfate 5 mg 5 mg 1X ONCE IV Last administered on 07/18/16 09:49; Start 07/18/16 at 09:00; Stop 07/18/16 at 09:20; Status DC Piperacillin Sod/ Tazobactam Sod 3.375 gm/Sodium Chloride 50 ml @ 100 mls/hr 1X ONCE IV Last administered on 07/18/16 09:50; Start 07/18/16 at 10:00; Stop 07/18/16 at 10:29; Status DC Vancomycin HCl/ Sodium Chloride (Iv Sodium Chloride 0.9% 500ml Bag) 500 ml @ 250 mls/hr 1X ONCE IV Last administered on 07/18/16 10:49; Start 07/18/16 at 10:00; Stop 07/18/16 at 11:59; Status DC Morphine Sulfate 4 mg 4 mg PRN Q4HRS PRN IV PAIN Last administered on 10:54; Start 07/18/16 at 09:45; Stop 07/19/16 at 18:33; Status DC Sodium Chloride (Iv Sodium Chloride 0.9% 1000ml Bag) 1,000 ml @ 125 mls/hr Q8H IV Last administered on 07/18/16 10:54; Start 07/18/16 at 09:42; Stop at 09:41; Status DC Albuterol/ Ipratropium 3 ml 3 ml Q6HRS NEB ; Start 07/18/16 at 12:00; Stop 07/18 at 16:06; Status DC Piperacillin Sod/ Tazobactam Sod 3.375 gm/Sodium Chloride 50 ml @ 100 mls/hr Q6HRS IV Last administered on 07/21/16 12:32; Start 07/18/16 at 18:00 Vancomycin HCl/ Sodium Chloride (Iv Sodium Chloride 0.9% 500ml Bag) 500 ml @ 250 mls/hr Q8H IV Last administered on 07/19/16 02:19; Start 07/18/16 at 18:00 ; Stop 07/19/16 at 10:15; Status DC Vancomycin HCl 1 each 1X ONCE MC Last administered on 07/19/16 09:30; Start 07/19/16 at 09:30; Stop 07/19/16 at 09:31; Status DC Gabapentin (Neurontin) 100 mg BID PO Last administered on 07/21/16 10:15; Start 07/18/16 at 21:00 Ibuprofen (Motrin) 400 mg PRN TID PRN PO INFLAMMATION Last administered on 07/21 10:16; Start 07/18/16 at 16:15 Albuterol/ Ipratropium (Duoneb) 3 ml QID PRN NEB SHORTNESS OF BREATH; Start 04/24 at 16:15; Stop 07/18/16 at 16:19; Status DC Spironolactone (Aldactone) 25 mg DAILY PO Last administered on 07/21/16 10:16 ; Start 07/18/16 at 17:00 Non-Formulary Medication 2 puff PRN Q6HRS PRN INH SHORTNESS OF BREATH; Start at 16:15; Stop 07/18/16 at 16:18; Status DC Mirtazapine (Remeron) 30 mg QHS PO Last administered on 07/20/16 21:17; Start 07/18/16 at 21:00 Albuterol/ Ipratropium (Duoneb) 3 ml RTQID NEB Last administered on 07/21/16 15:36; Start 07/18/16 at 17:00 Oxycodone/ Acetaminophen (Percocet 5/325) 1 tab PRN Q4HRS PRN PO PAIN Last administered on 07/21/16 10:16; Start 07/18/16 at 16:15 Albuterol Sulfate 2.5 mg 2.5 mg PRN Q6HRS PRN NEB SHORTNESS OF BREATH; Start at 16:15 Vancomycin HCl/ Sodium Chloride (Iv Sodium Chloride 0.9% 250ml) 250 ml @ 250 mls/hr Q12H IV Last administered on 07/21/16 10:17; Start 07/19/16 at 21:00 Iodixanol (Visipaque 320) 50 ml STK-MED ONCE .ROUTE ; Start 07/19/16 at 16:28; Stop 07/19/16 at 16:29; Status DC Iohexol (Omnipaque 300 Mg/ml) 100 ml STK-MED ONCE .ROUTE ; Start 07/19/16 at 16: 28; Stop 07/19/16 at 16:29; Status DC Lidocaine/Sodium Bicarbonate 20 ml 20 ml STK-MED ONCE IJ ; Start 07/19/16 at 16: 28; Stop 07/19/16 at 16:29; Status DC Heparin Sodium/ Sodium Chloride 500 ml @ As Directed STK-MED ONCE .ROUTE ; Start 07/19/16 at 16:28; Stop 07/19/16 at 16:29; Status DC Iodixanol (Visipaque 320) 100 ml STK-MED ONCE .ROUTE ; Start 07/19/16 at 16:29; Stop 07/19/16 at 16:30; Status DC Aspirin (Ecotrin) 81 mg DAILYWBKFT PO Last administered on 07/21/16 10:16; Start 07/19/16 at 17:30 Fluconazole (Diflucan) 100 mg DAILY PO Last administered on 07/21/16 10:16; Start 07/19/16 at 18:45 Vancomycin HCl 1 each 1X ONCE MC Last administered on 07/21/16 08:30; Start 07/21/16 at 08:30; Stop 07/21/16 at 08:31; Status DC Morphine Sulfate 1 mg 1 mg PRN Q10MIN PRN IV SEVERE PAIN; Start 07/22/16 at 07: 00; Stop 07/23/16 at 06:59 Lactated Ringer's (Iv Lactated Ringers) 1,000 ml @ 30 mls/hr Q24H IV ; Start at 07:00; Stop 07/22/16 at 18:59 Lidocaine HCl 2 ml 1X PRN PRN ID IV START; Start 07/22/16 at 07:00; Stop at 06:59 Hydromorphone HCl (Dilaudid) 0.5 mg PRN Q10MIN PRN IV SEVERE PAIN, Second choice; Start 07/22/16 at 07:00; Stop 07/23/16 at 06:59 Prochlorperazine Edisylate (Compazine) 5 mg PACU PRN PRN IV NAUSEA; Start 07/22 at 07:00; Stop 07/23/16 at 06:59 Active Scripts Active Reported Ventolin Hfa Inhaler (Albuterol Sulfate) 18 Gm Hfa.aer.ad 2 Puff INH PRN Q6HRS PRN Ibuprofen 400 Mg Tablet 400 Mg PO TID PRN Neurontin (Gabapentin) 100 Mg Capsule 100 Mg PO BID Mirtazapine 30 Mg Tablet 1 Tab PO QHS Spironolactone 25 Mg Tablet 1 Tab PO DAILY Duoneb 0.5-3(2.5) Mg/3 Ml (Albuterol/Ipratropium) 3 Ml Ampul.neb 3 Ml NEB QID PRN Vitals/I & O Vital Sign - Last 24 Hours 07/20/16 07/20/16 07/20/16 07/20/16 19:00 20:20 20:55 23:00 Temp 98.4 99.0 98.4 99.0 Pulse 98 91 Resp 18 18 B/P 130/74 128/71 Pulse Ox 84 92 83 O2 Delivery Nasal Cannula Bi-pap Nasal Cannula Nasal Cannula O2 Flow Rate 4.0 4.0 4.0 4.0 07/20/16 07/20/16 07/21/16 07/21/16 23:40 23:57 01:39 03:00 Temp 98.4 98.4 Pulse 90 Resp 18 B/P 143/73 Pulse Ox 84 O2 Delivery BiPAP/CPAP Nasal Cannula BiPAP/CPAP Nasal Cannula O2 Flow Rate 4.0 4.0 07/21/16 07/21/16 07/21/16 07/21/16 06:54 07:00 07:35 10:16 Temp 98.0 98.0 Pulse 77 Resp 16 B/P 122/71 Pulse Ox 87 92 O2 Delivery Nasal Cannula Nasal Cannula Bi-pap Nasal Cannula O2 Flow Rate 4.0 6.0 4.0 6.0 07/21/16 07/21/16 07/21/16 07/21/16 11:00 11:45 11:53 15:38 Temp 97.6 97.6 Pulse 82 Resp 18 B/P 148/82 Pulse Ox 85 O2 Delivery Nasal Cannula Nasal Cannula Nasal Cannula BiPAP/CPAP O2 Flow Rate 6.0 4.0 6.0 Intake and Output 07/20/16 07/20/16 07/21/16 15:00 23:00 07:00 Output Total 150 ml 300 ml 200 ml Balance -150 ml -300 ml -200 ml IWONA GUZMAN MD Jul 21, 2016 17:44
[2016-07-21] MEDS ORDERED: DEXTROSE 50% 25 GM / 50ML DISP.SYRIN. IV PRN (17:45)
[2016-07-21] MEDS: LISINOPRIL 5 MG TABLET. PO SCH (17:48)
[2016-07-21] MEDS: MIRTAZAPINE 15 MG TABLET PO SCH (21:16)
[2016-07-22] VITALS (12 sets, daily range): BP systolic 93–145; BP diastolic 51–90
[2016-07-22] MEDS: PIPERACILLIN/TAZOBACTAM 3.375 GM in IV NORMAL SALINE 50ML 50 ML IV SCH ×4 (00:32→18:44)
[2016-07-22] MEDS ORDERED: IV RINGERS,LACTATED 1000ML 1,000 ML IV SCH (07:00)
[2016-07-22] MEDS ORDERED: HYDROMORPHONE 2 MG/ML VIAL. IV PRN (07:00)
[2016-07-22] MEDS ORDERED: MORPHINE SULFATE 2 MG/ML DISP.SYRIN. IV PRN (07:00)
[2016-07-22] MEDS ORDERED: PROCHLORPERAZINE 10 MG/2 ML VIAL. IV PRN (07:00)
[2016-07-22] MEDS ORDERED: LIDOCAINE 1% 1 ML SYRINGE. ID PRN (07:00)
--- NOTE | 2016-07-22 07:33 | PDOC ---
Provider Note Provider Note Vascular Plan for angiogram with Dr. Enriquez today for bilateral lower extremity wounds ( left>right) and peripheral artery disease. KEERTHI HENAO MD Jul 22, 2016 07:33
[2016-07-22] MEDS: IPRATRPIUM/ALBUTEROL 0.5/2.5MG 3 ML NEBU. NEB SCH ×5 (07:58→19:36)
[2016-07-22] MEDS: ASPIRIN ENTERIC COATED 81 MG TABLET.DR. PO SCH (08:00)
[2016-07-22] MEDS: INSULIN ASPART 300 UNITS/3 ML INSULN.PEN SQ SCH ×3 (08:00→17:00)
--- NOTE | 2016-07-22 08:43 | PDOC ---
Infectious Disease Note Subjective Subjective Doing ok but some loose stool. Awaiting procedure ROS ROS GEN: Denies fevers, chills, sweats HEENT: Denies blurred vision, sore throat CV: Denies chest pain RESP: Denies shortness of air, cough GI: Denies n/v NEURO: Denies confusion, dizziness MSK: Denies weakness, joint pain/swelling Vital Sign Vital Signs Vital Signs Date Time Temp Pulse Resp B/P Pulse Ox O2 Delivery O2 Flow Rate FiO2 07/22/16 08:03 90 Nasal Cannula 5.0 07/22/16 03:44 98.3 94 22 128/66 98.3 Physical Exam PHYSICAL EXAM GENERAL: NAD, Alert HEENT: PERRL, OC/OP - clear. Nose discolored NECK: Supple, no JVD, no LN LUNGS: Clear HEART: S1S2, no gallop, no murmur ABD: Soft, NT, no organomegaly, no rebound EXT: Edema imporved, No cyanosis. Scaly, Less erythematous LE bilaterally. 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 aureus from leg wound culture - improved PAD Hyperglycemia Tinea Pre-diabetes, HbA1c 6.0 Plan Plan of Care Cont Abx and fluconazole Vascular procedure today Add Probiotics Labs in am ERLIN FU MD Jul 22, 2016 08:43
[2016-07-22] MEDS: FLUCONAZOLE 100 MG TABLET. PO SCH (09:00)
[2016-07-22] MEDS: GABAPENTIN 100 MG CAPSULE. PO SCH ×2 (09:00→21:05)
[2016-07-22] MEDS: VANCOMYCIN 1 GM in IV NORMAL SALINE 250ML 250 ML IV SCH ×2 (10:59→21:06)
[2016-07-22] MEDS: SPIRONOLACTONE 25 MG TABLET PO SCH (11:00)
[2016-07-22] MEDS: LISINOPRIL 5 MG TABLET. PO SCH (11:00)
[2016-07-22] MEDS: HYDROMORPHONE 2 MG/ML VIAL. IV PRN (11:01)
--- NOTE | 2016-07-22 11:10 | PDOC ---
PULMONARY PROGRESS NOTES Subjective pt not more soa this am Vitals Vital Signs Date Time Temp Pulse Resp B/P Pulse Ox O2 Delivery O2 Flow Rate FiO2 07/22/16 08:03 90 Nasal Cannula 5.0 07/22/16 07:00 97.9 79 22 141/78 97.9 General: Alert Lungs: Crackles Cardiovascular: S1, S2 Abdomen: Soft Neuro Exam: Alert Extremities: Other Skin: Warm Labs Laboratory Tests Test 07/21/16 08:30 Vancomycin Level Trough 16.7mcg/mL (10.0-20.0) Vancomycin Last Dose Date 07/20/16 Vancomycin Last Dose Time 2100 Medications Active Scripts Medications Dose Route/Sig Days Date Category Ventolin Hfa Inhaler (Albuterol Sulfate) 18 Gm Hfa.aer.ad 2 Puff INH PRN Q6HRS PRN 07/18/16 Reported Ibuprofen 400 Mg Tablet 400 Mg PO TID PRN 07/18/16 Reported Neurontin (Gabapentin) 100 Mg Capsule 100 Mg PO BID 07/18/16 Reported Mirtazapine 30 Mg Tablet 1 Tab PO QHS 07/18/16 Reported Spironolactone 25 Mg Tablet 1 Tab PO DAILY 07/18/16 Reported Duoneb 0.5-3(2.5) Mg/3 Ml (Albuterol/Ipratropium) 3 Ml Ampul.neb 3 Ml NEB QID PRN 07/18/16 Reported Impression . 1. Acute on chronic hypoxemic hypercapnic respiratory failure, multifactorial in nature. 2.pulmonary fibrosis. 3. Bilateral lower extremity cellulitis with evidence of peripheral arterial disease. Workup in progress. 4. Tobacco dependent. 5. Hypertension. 6. Obesity. 7. Significant occupational exposure. The patient worked in the [employer]. 8. Suspect ARNEL/OHS CT Chest 1. Emphysema. 2. Moderate interlobular septal thickening in the lungs suggesting interstitial edema, although there may be a component of fibrosis. 3. Tiny right pleural effusion. 4. Mild right lower lobe atelectasis and/or pneumonitis. 5. Tiny pericardial effusion. 6. Probable cholelithiasis. Plan . . Spoke with Dr Enriquez i think it is unsafe to perform any interventions without intubating patient Anesthesia to help Continue oxygen supplementation throughout the day. Lasix Continue current antibiotics per ID. Nebulized treatments. The patient instructed on the importance of discontinuing tobacco use. ELISHA DAVILA MD Jul 22, 2016 11:09
[2016-07-22] MEDS: LACTOBACILLUS ACIDOPH & BULGAR 1 TABLET. PO SCH ×2 (12:00→16:12)
[2016-07-22] MEDS ORDERED: FUROSEMIDE 40 MG/4 ML VIAL IVP ONE (12:00)
[2016-07-22] MEDS ORDERED: PROPOFOL 20 ML IV ONE (13:03)
[2016-07-22] MEDS ORDERED: FAMOTIDINE 20 MG/2 ML VIAL ONE (13:03)
[2016-07-22] MEDS ORDERED: ONDANSETRON PF 4 MG/2 ML VIAL. ONE (13:03)
[2016-07-22] MEDS ORDERED: DEXAMETHASONE SOD PHOS 20 MG/5 ML VIAL. ONE (13:03)
[2016-07-22] MEDS ORDERED: LIDOCAINE 2% 100 MG/5 ML DISP.SYRIN. ONE (13:03)
[2016-07-22] MEDS ORDERED: SUCCINYLCHOLINE 200 MG/10 ML VIAL. ONE (13:04)
[2016-07-22] MEDS ORDERED: ROCURONIUM 50 MG/5 ML VIAL. ONE (13:04)
[2016-07-22] MEDS ORDERED: IODIXANOL 320MG/ML 50ML VIAL. ONE (13:27)
[2016-07-22] MEDS ORDERED: HEPARIN for ARTERIAL LINE 1,500 ML ONE (13:28)
[2016-07-22] MEDS ORDERED: LIDOCAINE 1% / SOD BICARB 8.4% 20 ML VIAL. IJ ONE ×2 (13:28→14:30)
[2016-07-22] MEDS ORDERED: IOHEXOL 300 MG/ML 100ML VIAL. ONE (13:28)
[2016-07-22] MEDS ORDERED: IODIXANOL 320 MG/ML 100 ML VIAL. ONE (13:28)
[2016-07-22] MEDS ORDERED: MIDAZOLAM HCL 2 MG/2 ML VIAL. IV PRN (14:30)
[2016-07-22] MEDS ORDERED: IODIXANOL 320 MG/ML 100 ML VIAL. IART ONE (14:30)
[2016-07-22] MEDS ORDERED: IOHEXOL 300 MG/ML 100ML VIAL. IART ONE (14:30)
--- NOTE | 2016-07-22 14:30 | PDOC ---
Date and Time Patient with severe COPD for arteriogram lower extremities. Unable to lie flat for even a minute. pCO2 upper 70's preop Patient required intubation and general anesthesia for procedure. Plan is to leave him intubated after the procedure. Pulmonary is aware and planning to manage ventilator. Current Medications Current Medications Vancomycin HCl 1 each 1 each PRN DAILY PRN PHARMACY TO DOSE Last administered on 07/21/16 09:40; Start 07/18/16 at 09:00 Sodium Chloride (Iv Sodium Chloride 0.9% 1000ml Bag) 1,000 ml @ 1,000 mls/hr Q1H IV Last administered on 07/18/16 09:49; Start 07/18/16 at 08:54; Stop 04/24 at 09:53; Status DC Sodium Chloride (Normal Saline Flush) 10 ml QSHIFT PRN IV AFTER MEDS AND BLOOD DRAWS Last administered on 07/18/16 09:49; Start 07/18/16 at 09:00 Piperacillin Sod/ Tazobactam Sod (Zosyn Per Pharmacy) 1 each PRN DAILY PRN SEE COMMENTS; Start 07/18/16 at 09:00 Morphine Sulfate 5 mg 5 mg 1X ONCE IV Last administered on 07/18/16 09:49; Start 07/18/16 at 09:00; Stop 07/18/16 at 09:20; Status DC Piperacillin Sod/ Tazobactam Sod 3.375 gm/Sodium Chloride 50 ml @ 100 mls/hr 1X ONCE IV Last administered on 07/18/16 09:50; Start 07/18/16 at 10:00; Stop 07/18/16 at 10:29; Status DC Vancomycin HCl/ Sodium Chloride (Iv Sodium Chloride 0.9% 500ml Bag) 500 ml @ 250 mls/hr 1X ONCE IV Last administered on 07/18/16 10:49; Start 07/18/16 at 10:00; Stop 07/18/16 at 11:59; Status DC Morphine Sulfate 4 mg 4 mg PRN Q4HRS PRN IV PAIN Last administered on 10:54; Start 07/18/16 at 09:45; Stop 07/19/16 at 18:33; Status DC Sodium Chloride (Iv Sodium Chloride 0.9% 1000ml Bag) 1,000 ml @ 125 mls/hr Q8H IV Last administered on 07/18/16 10:54; Start 07/18/16 at 09:42; Stop at 09:41; Status DC Albuterol/ Ipratropium 3 ml 3 ml Q6HRS NEB ; Start 07/18/16 at 12:00; Stop 07/18 at 16:06; Status DC Piperacillin Sod/ Tazobactam Sod 3.375 gm/Sodium Chloride 50 ml @ 100 mls/hr Q6HRS IV Last administered on 07/22/16 05:47; Start 07/18/16 at 18:00 Vancomycin HCl/ Sodium Chloride (Iv Sodium Chloride 0.9% 500ml Bag) 500 ml @ 250 mls/hr Q8H IV Last administered on 07/19/16 02:19; Start 07/18/16 at 18:00 ; Stop 07/19/16 at 10:15; Status DC Vancomycin HCl 1 each 1X ONCE MC Last administered on 07/19/16 09:30; Start 07/19/16 at 09:30; Stop 07/19/16 at 09:31; Status DC Gabapentin (Neurontin) 100 mg BID PO Last administered on 07/21/16 21:16; Start 07/18/16 at 21:00 Ibuprofen (Motrin) 400 mg PRN TID PRN PO INFLAMMATION Last administered on 07/21 10:16; Start 07/18/16 at 16:15; Stop 07/21/16 at 17:44; Status DC Albuterol/ Ipratropium (Duoneb) 3 ml QID PRN NEB SHORTNESS OF BREATH; Start 04/24 at 16:15; Stop 07/18/16 at 16:19; Status DC Spironolactone (Aldactone) 25 mg DAILY PO Last administered on 07/22/16 11:00 ; Start 07/18/16 at 17:00 Non-Formulary Medication 2 puff PRN Q6HRS PRN INH SHORTNESS OF BREATH; Start at 16:15; Stop 07/18/16 at 16:18; Status DC Mirtazapine (Remeron) 30 mg QHS PO Last administered on 07/21/16 21:16; Start 07/18/16 at 21:00 Albuterol/ Ipratropium (Duoneb) 3 ml RTQID NEB Last administered on 07/22/16 11:48; Start 07/18/16 at 17:00 Oxycodone/ Acetaminophen (Percocet 5/325) 1 tab PRN Q4HRS PRN PO PAIN Last administered on 07/21/16 21:16; Start 07/18/16 at 16:15 Albuterol Sulfate 2.5 mg 2.5 mg PRN Q6HRS PRN NEB SHORTNESS OF BREATH; Start at 16:15 Vancomycin HCl/ Sodium Chloride (Iv Sodium Chloride 0.9% 250ml) 250 ml @ 250 mls/hr Q12H IV Last administered on 07/22/16 10:59; Start 07/19/16 at 21:00 Iodixanol (Visipaque 320) 50 ml STK-MED ONCE .ROUTE ; Start 07/19/16 at 16:28; Stop 07/19/16 at 16:29; Status DC Iohexol (Omnipaque 300 Mg/ml) 100 ml STK-MED ONCE .ROUTE ; Start 07/19/16 at 16: 28; Stop 07/19/16 at 16:29; Status DC Lidocaine/Sodium Bicarbonate 20 ml 20 ml STK-MED ONCE IJ ; Start 07/19/16 at 16: 28; Stop 07/19/16 at 16:29; Status DC Heparin Sodium/ Sodium Chloride 500 ml @ As Directed STK-MED ONCE .ROUTE ; Start 07/19/16 at 16:28; Stop 07/19/16 at 16:29; Status DC Iodixanol (Visipaque 320) 100 ml STK-MED ONCE .ROUTE ; Start 07/19/16 at 16:29; Stop 07/19/16 at 16:30; Status DC Aspirin (Ecotrin) 81 mg DAILYWBKFT PO Last administered on 07/21/16 10:16; Start 07/19/16 at 17:30 Fluconazole (Diflucan) 100 mg DAILY PO Last administered on 07/21/16 10:16; Start 07/19/16 at 18:45 Vancomycin HCl 1 each 1X ONCE MC Last administered on 07/21/16 08:30; Start 07/21/16 at 08:30; Stop 07/21/16 at 08:31; Status DC Morphine Sulfate 1 mg 1 mg PRN Q10MIN PRN IV SEVERE PAIN; Start 07/22/16 at 07: 00; Stop 07/22/16 at 07:00; Status DC Lactated Ringer's (Iv Lactated Ringers) 1,000 ml @ 30 mls/hr Q24H IV ; Start at 07:00; Stop 07/22/16 at 18:59 Lidocaine HCl 2 ml 1X PRN PRN ID IV START; Start 07/22/16 at 07:00; Stop at 06:59 Hydromorphone HCl (Dilaudid) 0.5 mg PRN Q10MIN PRN IV SEVERE PAIN, Second choice; Start 07/22/16 at 07:00; Stop 07/22/16 at 07:00; Status DC Prochlorperazine Edisylate (Compazine) 5 mg PACU PRN PRN IV NAUSEA; Start 07/22 at 07:00; Stop 07/23/16 at 06:59 Lisinopril (Prinivil) 5 mg DAILY PO Last administered on 07/22/16 11:00; Start 07/21/16 at 18:00 Hydromorphone HCl (Dilaudid) 0.5 mg PRN Q2HRS PRN IV SEVERE PAIN Last administered on 07/22/16 11:01; Start 07/21/16 at 18:00 Insulin Aspart (Novolog) 0-5 UNITS TIDWMEALS SQ ; Start 07/22/16 at 08:00 Dextrose 12.5 gm PRN Q15MIN PRN IV SEE COMMENTS; Start 07/21/16 at 17:45 Lactobacillus Acidophilus (Bacid, Yessica-Bid) 1 tab TIDWMEALS PO ; Start 07/22/16 at 12:00 Furosemide 40 mg 40 mg 1X ONCE IVP ; Start 07/22/16 at 12:00; Stop 07/22/16 at 12:02; Status DC Propofol (Diprivan) 20 ml @ As Directed STK-MED ONCE IV ; Start 07/22/16 at 13: 03; Stop 07/22/16 at 13:04; Status DC Dexamethasone Sodium Phosphate (Decadron) 20 mg STK-MED ONCE .ROUTE ; Start at 13:03; Stop 07/22/16 at 13:04; Status DC Famotidine (Pepcid) 20 mg STK-MED ONCE .ROUTE ; Start 07/22/16 at 13:03; Stop at 13:04; Status DC Ondansetron HCl (Zofran) 4 mg STK-MED ONCE .ROUTE ; Start 07/22/16 at 13:03; Stop 07/22/16 at 13:04; Status DC Lidocaine HCl 100 mg STK-MED ONCE .ROUTE ; Start 07/22/16 at 13:03; Stop at 13:04; Status DC Succinylcholine Chloride (Anectine) 200 mg STK-MED ONCE .ROUTE ; Start 07/22/16 at 13:04; Stop 07/22/16 at 13:05; Status DC Rocuronium Gracey (Zemuron) 50 mg STK-MED ONCE .ROUTE ; Start 07/22/16 at 13:04 ; Stop 07/22/16 at 13:05; Status DC Iodixanol (Visipaque 320) 50 ml STK-MED ONCE .ROUTE ; Start 07/22/16 at 13:27; Stop 07/22/16 at 13:28; Status DC Iohexol (Omnipaque 300 Mg/ml) 100 ml STK-MED ONCE .ROUTE ; Start 07/22/16 at 13: 28; Stop 07/22/16 at 13:29; Status DC Lidocaine/Sodium Bicarbonate 20 ml 20 ml STK-MED ONCE IJ ; Start 07/22/16 at 13: 28; Stop 07/22/16 at 13:29; Status DC Heparin Sodium/ Sodium Chloride 1,500 ml @ As Directed STK-MED ONCE .ROUTE ; Start 07/22/16 at 13:28; Stop 07/22/16 at 13:29; Status DC Iodixanol (Visipaque 320) 100 ml STK-MED ONCE .ROUTE ; Start 07/22/16 at 13:28; Stop 07/22/16 at 13:29; Status DC Active Scripts Active Reported Ventolin Hfa Inhaler (Albuterol Sulfate) 18 Gm Hfa.aer.ad 2 Puff INH PRN Q6HRS PRN Ibuprofen 400 Mg Tablet 400 Mg PO TID PRN Neurontin (Gabapentin) 100 Mg Capsule 100 Mg PO BID Mirtazapine 30 Mg Tablet 1 Tab PO QHS Spironolactone 25 Mg Tablet 1 Tab PO DAILY Duoneb 0.5-3(2.5) Mg/3 Ml (Albuterol/Ipratropium) 3 Ml Ampul.neb 3 Ml NEB QID PRN Pertinent Labs/Test Laboratory Tests Test 07/21/16 08:30 07/22/16 10:37 Vancomycin Level Trough 16.7mcg/mL (10.0-20.0) Vancomycin Last Dose Date 07/20/16 Vancomycin Last Dose Time 2100 Glucose (Fingerstick) 95mg/dL (70-99) Laboratory Tests Test 07/22/16 10:37 Glucose (Fingerstick) 95mg/dL (70-99) LAST VITALS Vital Signs Date Time Temp Pulse Resp B/P Pulse Ox O2 Delivery O2 Flow Rate FiO2 07/22/16 11:54 90 Nasal Cannula 5.0 07/22/16 11:00 79 141/78 07/22/16 11:00 98.0 20 98.0 SUGAR HANNA MD Jul 22, 2016 14:30
[2016-07-22] MEDS ORDERED: CONTRAST GIVEN MC PRN (14:45)
--- NOTE | 2016-07-22 15:03 | PDOC ---
Exam [facility] Coordinator [facility] Mina Registered Massage Therapist Registered Massage Therapist Farhad Coronel Pre-Procedure Diagnosis Pre-Procedure Diagnosis 61 YO male hypertensive smoker with hypercapnic respiratory failure, and with bilateral lower extremity edema and bilateral lower extremity wounds. ? PAD. Diagnostic angio +/- intervention requested. 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 Normal iliac and SFA-pop segments bilaterally. Widely patent tibial trifurcations. Unremarkable 3 vessel r/o on left. Distal right AT occlusion, with good DP reconstitution via large caliber peroneal. Procedure Performed Procedure Performed Abdominal aortogram with bilateral lower extremity arteriogram Type of Anesthesia Type of Anesthesia General Estimated Blood Loss EBL: 25 cc Condition of Patient Condition of Patient Hemodynamically stable. No apparent complication. Disposition Disposition From IR directly to ICU on vent. Vent management per Dr Wu. Full report to follow. MOISÉS COLLINS MD Jul 22, 2016 15:03
[2016-07-22] MEDS: PROPOFOL 100 ML IV PRN ×2 (15:04→18:44)
[2016-07-22] MEDS ORDERED: FENTANYL PF 100 MCG/2 ML VIAL. ONE (15:27)
[2016-07-22] MEDS: FENTANYL PF 100 MCG/2 ML VIAL. IV PRN ×2 (15:37→15:45)
[2016-07-22] MEDS ORDERED: MIDAZOLAM PREMIX 100 ML IV ONE (15:46)
[2016-07-22] MEDS ORDERED: MIDAZOLAM PREMIX 100 ML IV PRN (16:00)
--- NOTE | 2016-07-22 16:45 | RAD ---
Examination: Frontal view of the abdomen History: History for feeding tube placement Comparison: None available Findings: The feeding tube tip is identified in the upper left mid abdomen likely within the stomach. Impression: The feeding tube tip projects in the upper left mid abdomen likely within the body of the stomach.
[2016-07-22] MEDS: VANCOMYCIN PER PHARMACY MC PRN (17:12)
--- NOTE | 2016-07-22 17:39 | PDOC ---
PROGRESS NOTES Chief Complaint Chief Complaint Leg pain ASSESSMENT AND PLAN: 1. LE cellulitis: on Abx. ID following 2. PVD: art US with occlusive dz. eval with arteriogram aborted 2/2 hypoxia, done today with intub/gen anesthesia: surprisingly clean 3. Hypoxic, hypercarbic respir status w/o distress: suspect chronic, COPD, with ongoing tobacco abuse. supplemental O2, nebs. CT chest with emphysema , interstitial thickening (edema vs fibrosis). Dr Wu managing vent waening 4. Tobacco use: <1/2 ppd now, with >100 p/y hx. 5. HTN: on spironolactone alone (suspect for chronic venous stasis). started YOVANA-I 6. DM: borderline; HgbA1c sl elevated, but too low to start meds. monitor w / ISS. diabetic diet, nutritional consult 7. Psych: unclear hx (?depression), but on mirtazapine. cont home med. 8. Thrombocytopenia: stable in triple-digit lowish range. 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 monitor 9. Reynaud's syndrome/ leg discoloration: ?vasculitis. obtain serologies, derm consult for poss bx. 10. Prophylaxis: sq heparin for now; hold prior to interventions. PPI Vitals Vitals Vital Signs Date Time Temp Pulse Resp B/P Pulse Ox O2 Delivery O2 Flow Rate FiO2 07/22/16 16:48 87 Ventilator 07/22/16 16:00 98.0 61 16 115/64 98.0 07/22/16 11:54 5.0 Physical Exam General: Other (intubated, sadated) Heart: Regular rate Lungs: Clear, Other (POOR AIR FLOW) Abdomen: Normal bowel sounds, No tenderness, Other (Rounded and somewhat protruding. Patient states this is normal for him.) Extremities: No clubbing, Other (deep purple discoloration from bilat dorsi of feet to almost knees. open wounds covered with gauze.) Skin: Other (very dry, superficial blistering on LE ) Labs LABS Laboratory Tests Test 07/22/16 10:37 07/22/16 15:39 Glucose (Fingerstick) 95mg/dL (70-99) 97mg/dL (70-99) Review of Systems Review of Systems intubated, sedated IWONA GUZMAN MD Jul 22, 2016 17:39
[2016-07-22 17:46] LABS: HCO3 ABG 35 mmol/L (21-28); PO2 ABG 82 mmHg (65-108); SAT O2 ABG 94 % (92-99)
[2016-07-22 17:47] LABS: PCO2 ABG 88 mmHg (35-46); PH ABG 7.22 (7.35-7.45)
[2016-07-22] MEDS: MIRTAZAPINE 15 MG TABLET PO SCH (21:05)
[2016-07-23] VITALS (24 sets, daily range): BP systolic 81–155; BP diastolic 44–87
[2016-07-23] MEDS: PIPERACILLIN/TAZOBACTAM 3.375 GM in IV NORMAL SALINE 50ML 50 ML IV SCH ×4 (00:05→18:01)
[2016-07-23] MEDS: PROPOFOL 100 ML IV PRN ×8 (00:07→22:46)
[2016-07-23] MEDS ORDERED: PROPOFOL 100 ML IV ONE (04:06)
[2016-07-23] MEDS: HYDROMORPHONE 2 MG/ML VIAL. IV PRN (05:53)
[2016-07-23 06:00] LABS: BASO % 0 % (0-3); EOS % 0 % (0-3); HEMATOCRIT 44.8 % (39.0-53.0); HEMOGLOBIN 13.9 g/dL (13.0-17.5); LYMPH # 0.3 x10^3/uL (1.0-4.8); LYMPH % 6 % (24-48); MEAN CORPUSCULAR HEMOGLOBIN 28 pg (25-35); MEAN CORPUSCULAR HGB CONC 31 g/dL (31-37); MEAN CORPUSCULAR VOLUME 90 fL (79-100); MONO % 7 % (0-9); NEUT % 87 % (31-73); PLATELET COUNT 148 x10^3/uL (140-400); RED BLOOD COUNT 5.01 x10^6/uL (4.30-5.70); WHITE BLOOD COUNT 4.5 x10^3/uL (4.0-11.0)
[2016-07-23 06:13] LABS: CREATININE 1.4 mg/dL (0.7-1.3); GFR 51.7; POTASSIUM 4.6 mmol/L (3.5-5.1)
--- NOTE | 2016-07-23 06:54 | PDOC ---
Provider Note Provider Note Intubated in the ICU right groin access site with no hematoma LEs with dressings A/P bilateral lower extremity extensive skin wounds and cellulitis Angiogram reviewed which shows no significant arterial disease and overall normal circulation to the legs. No Vascular intervention needed. Recommend continued wound care. Vascular will sign off, please call with questions KEERTHI HENAO MD Jul 23, 2016 06:54
--- NOTE | 2016-07-23 07:08 | PDOC ---
Infectious Disease Note Subjective Subjective Intubated/Sedated ROS ROS Unobtainable Vital Sign Vital Signs Vital Signs Date Time Temp Pulse Resp B/P Pulse Ox O2 Delivery O2 Flow Rate FiO2 07/23/16 06:41 11 96 Ventilator 07/23/16 06:00 59 98/49 07/23/16 04:00 98.8 98.8 07/22/16 16:07 5.0 Physical Exam PHYSICAL EXAM GENERAL: Intubated/Sedted HEENT: PERRL, OC/OP - clear. Nose discolored NECK: Supple, no JVD, no LN LUNGS: Clear HEART: S1S2, no gallop, no murmur ABD: Soft, NT, no organomegaly, no rebound Right groin site is clean EXT: Edema improved, No cyanosis. Scaly, Less erythematous LE bilaterally. 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 SKIN: No rash IV: ok Labs Lab Laboratory Tests Test 07/22/16 10:37 07/22/16 15:39 07/22/16 17:30 07/23/16 05:25 Glucose (Fingerstick) 95mg/dL (70-99) 97mg/dL (70-99) O2 Saturation 94% (92-99) Arterial Blood pH 7.22 (7.35-7.45) Arterial Blood pCO2 at Patient Temp 88mmHg (35-46) Arterial Blood pO2 at Patient Temp 82mmHg (65-108) Arterial Blood HCO3 35mmol/L (21-28) Arterial Blood Base Excess 4mmol/L (-3-3) White Blood Count 4.5x10^3/uL (4.0-11.0) Red Blood Count 5.01x10^6/uL (4.30-5.70) Hemoglobin 13.9g/dL (13.0-17.5) Hematocrit 44.8% (39.0-53.0) Mean Corpuscular Volume 90fL (79-100) Mean Corpuscular Hemoglobin 28pg (25-35) Mean Corpuscular Hemoglobin Concent 31g/dL (31-37) Red Cell Distribution Width 15.0% (11.5-14.5) Platelet Count 148x10^3/uL (140-400) Neutrophils (%) (Auto) 87% (31-73) Lymphocytes (%) (Auto) 6% (24-48) Monocytes (%) (Auto) 7% (0-9) Eosinophils (%) (Auto) 0% (0-3) Basophils (%) (Auto) 0% (0-3) Neutrophils # (Auto) 3.9x10^3uL (1.8-7.7) Lymphocytes # (Auto) 0.3x10^3/uL (1.0-4.8) Monocytes # (Auto) 0.3x10^3/uL (0.0-1.1) Eosinophils # (Auto) 0.0x10^3/uL (0.0-0.7) Basophils # (Auto) 0.0x10^3/uL (0.0-0.2) Sodium Level 143mmol/L (136-145) Potassium Level 4.6mmol/L (3.5-5.1) Chloride Level 102mmol/L (98-107) Carbon Dioxide Level 34mmol/L (21-32) Anion Gap 7 (6-14) Blood Urea Nitrogen 24mg/dL (8-26) Creatinine 1.4mg/dL (0.7-1.3) Estimated GFR (Cockcroft-Gault) 51.7 Glucose Level 136mg/dL (70-99) Calcium Level 9.0mg/dL (8.5-10.1) Micro No anaerobic growth in 72 hours. AEROBIC CULT Final Final report AEROBIC RES 1 Final Comment Pseudomonas aeruginosa Moderate growth AEROBIC RES 2 Final Staphylococcus aureus Moderate growth Based on resistance to penicillin and susceptibility to oxacillin this isolate would be susceptible to: * Penicillinase-stable penicillins; such as: Cloxacillin Dicloxacillin Nafcillin * Beta-lactam/beta-lactamase inhibitor combinations; such as: Amoxicillin-clavulanic acid Ampicillin-sulbactam * Antistaphylococcal cephems; such as: Cefaclor Cefuroxime * Antistaphylococcal carbapenems; such as: Imipenem Meropenem CONTINUED ON NEXT PAGE RUN DATE: 07/22/16 PAGE 2 RUN TIME: 1900 [facility] [address] [place] [address] Van Encarnacion M.D., Flight Radio Operator SPEC: [id number] PATIENT: DANELLE JOHN [id number] ( Continued) Procedure Result AEROBIC RES 3 Final Proteus vulgaris Moderate growth AEROBIC RES 4 Final Mixed skin catherine Moderate growth ANTIMICROBIAL SUSCEPTIBILITY Final Comment S = Susceptible; I = Intermediate; R = Resistant P = Positive; N = Negative MICS are expressed in micrograms per mL Antibiotic RSLT#1 RSLT#2 RSLT#3 RSLT#4 Amikacin S Amoxicillin/Clavulanic Acid S Ampicillin R Cefazolin R Cefepime S S Ceftazidime S Ceftriaxone S Cefuroxime R Ciprofloxacin S R S Clindamycin S Ertapenem S Erythromycin R Gentamicin S S S Imipenem S Levofloxacin S I S Linezolid S Meropenem S Moxifloxacin S Oxacillin S Penicillin R Piperacillin S S Quinupristin/Dalfopristin S Rifampin S Tetracycline S R Ticarcillin S Tobramycin S S Trimethoprim/Sulfa S S Vancomycin S Performed at: [facility] - [address], [place], [place] [id number] CT reviewed Objective Assessment LE Cellulitis - MSSA/PSA/Proteus improved PAD - aortogram clean JONATHAN Hyperglycemia Tinea Pre-diabetes, HbA1c 6.0 Plan Plan of Care Discont Vanc Cont Zosyn/ fluconazole Consult Derm pending Cont Probiotics Monitor Cr in am D/w ERLIN Rizo MD Jul 23, 2016 07:08
--- NOTE | 2016-07-23 07:39 | PDOC ---
PULMONARY PROGRESS NOTES Subjective on vent, sedated, off sedation follows commands, has mod ett secretion Vitals Vital Signs Date Time Temp Pulse Resp B/P Pulse Ox O2 Delivery O2 Flow Rate FiO2 07/23/16 07:00 58 11 86/44 95 Ventilator 07/23/16 04:00 98.8 98.8 07/22/16 16:07 5.0 General: Lethargic HEENT: Other (nc at perrl, nose clear, orally intubated) Lungs: Crackles Cardiovascular: S1, S2 Abdomen: Soft Extremities: Other Skin: Warm Labs Laboratory Tests Test 07/21/16 08:30 07/22/16 10:37 07/22/16 15:39 07/22/16 17:30 Vancomycin Level Trough 16.7mcg/mL (10.0-20.0) Vancomycin Last Dose Date 07/20/16 Vancomycin Last Dose Time 2100 Glucose (Fingerstick) 95mg/dL (70-99) 97mg/dL (70-99) O2 Saturation 94% (92-99) Arterial Blood pH 7.22 (7.35-7.45) Arterial Blood pCO2 at Patient Temp 88mmHg (35-46) Arterial Blood pO2 at Patient Temp 82mmHg (65-108) Arterial Blood HCO3 35mmol/L (21-28) Arterial Blood Base Excess 4mmol/L (-3-3) Test 07/23/16 05:25 White Blood Count 4.5x10^3/uL (4.0-11.0) Red Blood Count 5.01x10^6/uL (4.30-5.70) Hemoglobin 13.9g/dL (13.0-17.5) Hematocrit 44.8% (39.0-53.0) Mean Corpuscular Volume 90fL (79-100) Mean Corpuscular Hemoglobin 28pg (25-35) Mean Corpuscular Hemoglobin Concent 31g/dL (31-37) Red Cell Distribution Width 15.0% (11.5-14.5) Platelet Count 148x10^3/uL (140-400) Neutrophils (%) (Auto) 87% (31-73) Lymphocytes (%) (Auto) 6% (24-48) Monocytes (%) (Auto) 7% (0-9) Eosinophils (%) (Auto) 0% (0-3) Basophils (%) (Auto) 0% (0-3) Neutrophils # (Auto) 3.9x10^3uL (1.8-7.7) Lymphocytes # (Auto) 0.3x10^3/uL (1.0-4.8) Monocytes # (Auto) 0.3x10^3/uL (0.0-1.1) Eosinophils # (Auto) 0.0x10^3/uL (0.0-0.7) Basophils # (Auto) 0.0x10^3/uL (0.0-0.2) Sodium Level 143mmol/L (136-145) Potassium Level 4.6mmol/L (3.5-5.1) Chloride Level 102mmol/L (98-107) Carbon Dioxide Level 34mmol/L (21-32) Anion Gap 7 (6-14) Blood Urea Nitrogen 24mg/dL (8-26) Creatinine 1.4mg/dL (0.7-1.3) Estimated GFR (Cockcroft-Gault) 51.7 Glucose Level 136mg/dL (70-99) Calcium Level 9.0mg/dL (8.5-10.1) Laboratory Tests Test 07/22/16 10:37 07/22/16 15:39 07/22/16 17:30 07/23/16 05:25 Glucose (Fingerstick) 95mg/dL (70-99) 97mg/dL (70-99) O2 Saturation 94% (92-99) Arterial Blood pH 7.22 (7.35-7.45) Arterial Blood pCO2 at Patient Temp 88mmHg (35-46) Arterial Blood pO2 at Patient Temp 82mmHg (65-108) Arterial Blood HCO3 35mmol/L (21-28) Arterial Blood Base Excess 4mmol/L (-3-3) White Blood Count 4.5x10^3/uL (4.0-11.0) Red Blood Count 5.01x10^6/uL (4.30-5.70) Hemoglobin 13.9g/dL (13.0-17.5) Hematocrit 44.8% (39.0-53.0) Mean Corpuscular Volume 90fL (79-100) Mean Corpuscular Hemoglobin 28pg (25-35) Mean Corpuscular Hemoglobin Concent 31g/dL (31-37) Red Cell Distribution Width 15.0% (11.5-14.5) Platelet Count 148x10^3/uL (140-400) Neutrophils (%) (Auto) 87% (31-73) Lymphocytes (%) (Auto) 6% (24-48) Monocytes (%) (Auto) 7% (0-9) Eosinophils (%) (Auto) 0% (0-3) Basophils (%) (Auto) 0% (0-3) Neutrophils # (Auto) 3.9x10^3uL (1.8-7.7) Lymphocytes # (Auto) 0.3x10^3/uL (1.0-4.8) Monocytes # (Auto) 0.3x10^3/uL (0.0-1.1) Eosinophils # (Auto) 0.0x10^3/uL (0.0-0.7) Basophils # (Auto) 0.0x10^3/uL (0.0-0.2) Sodium Level 143mmol/L (136-145) Potassium Level 4.6mmol/L (3.5-5.1) Chloride Level 102mmol/L (98-107) Carbon Dioxide Level 34mmol/L (21-32) Anion Gap 7 (6-14) Blood Urea Nitrogen 24mg/dL (8-26) Creatinine 1.4mg/dL (0.7-1.3) Estimated GFR (Cockcroft-Gault) 51.7 Glucose Level 136mg/dL (70-99) Calcium Level 9.0mg/dL (8.5-10.1) Medications Active Scripts Medications Dose Route/Sig Days Date Category Ventolin Hfa Inhaler (Albuterol Sulfate) 18 Gm Hfa.aer.ad 2 Puff INH PRN Q6HRS PRN 07/18/16 Reported Ibuprofen 400 Mg Tablet 400 Mg PO TID PRN 07/18/16 Reported Neurontin (Gabapentin) 100 Mg Capsule 100 Mg PO BID 07/18/16 Reported Mirtazapine 30 Mg Tablet 1 Tab PO QHS 07/18/16 Reported Spironolactone 25 Mg Tablet 1 Tab PO DAILY 07/18/16 Reported Duoneb 0.5-3(2.5) Mg/3 Ml (Albuterol/Ipratropium) 3 Ml Ampul.neb 3 Ml NEB QID PRN 07/18/[address] reviewed, 1. Emphysema. 2. Moderate interlobular septal thickening in the lungs suggesting interstitial edema, although there may be a component of fibrosis. 3. Tiny right pleural effusion. 4. Mild right lower lobe atelectasis and/or pneumonitis. 5. Tiny pericardial effusion. 6. Probable cholelithiasis. Impression . 1. Acute on chronic hypoxemic hypercapnic respiratory failure, multifactorial in nature. 2.pulmonary fibrosis. 3. Bilateral lower extremity cellulitis with evidence of peripheral arterial disease. Workup in progress. 4. Tobacco dependent. 5. Hypertension. 6. Obesity. 7. Significant occupational exposure. The patient worked in the [employer]. 8. Suspect ARNEL/OHS CT Chest 1. Emphysema. 2. Moderate interlobular septal thickening in the lungs suggesting interstitial edema, although there may be a component of fibrosis. 3. Tiny right pleural effusion. 4. Mild right lower lobe atelectasis and/or pneumonitis. 5. Tiny pericardial effusion. 6. Probable cholelithiasis. Plan . Continue vent setting, vent setting reviewed, sbt 02 titration Lasix Continue current antibiotics per ID. Nebulized treatments. add ics The patient instructed on the importance of discontinuing tobacco use yesterday , will discuss more when extubated discussed w ADRIÁN Cheng MD Jul 23, 2016 07:38
[2016-07-23] MEDS: LACTOBACILLUS ACIDOPH & BULGAR 1 TABLET. PO SCH ×3 (08:00→16:27)
[2016-07-23] MEDS: ASPIRIN ENTERIC COATED 81 MG TABLET.DR. PO SCH (08:00)
[2016-07-23] MEDS: INSULIN ASPART 300 UNITS/3 ML INSULN.PEN SQ SCH ×3 (08:00→16:29)
[2016-07-23] MEDS: IPRATRPIUM/ALBUTEROL 0.5/2.5MG 3 ML NEBU. NEB SCH ×4 (08:42→19:30)
[2016-07-23] MEDS: SPIRONOLACTONE 25 MG TABLET PO SCH (09:00)
[2016-07-23] MEDS: GABAPENTIN 100 MG CAPSULE. PO SCH ×2 (09:00→21:11)
[2016-07-23] MEDS: LISINOPRIL 5 MG TABLET. PO SCH (09:00)
[2016-07-23] MEDS: FLUCONAZOLE 100 MG TABLET. PO SCH (09:00)
[2016-07-23] MEDS: methylPREDNISolone SOD SUCC PF 40 MG/ML VIAL. IV SCH ×3 (10:27→21:11)
--- NOTE | 2016-07-23 10:37 | PDOC ---
PROGRESS NOTES Chief Complaint Chief Complaint Leg pain ASSESSMENT AND PLAN: 1. LE cellulitis: on Abx. ID following 2. PVD: art US with occlusive dz. eval with arteriogram aborted 2/2 hypoxia, done today with intub/gen anesthesia: surprisingly clean 3. Hypoxic, hypercarbic respir status w/o distress: suspect chronic, COPD, with ongoing tobacco abuse. supplemental O2, nebs. CT chest with emphysema , interstitial thickening (edema vs fibrosis). intubated for procedure. vent management as per Pulm 4. Tobacco use: <1/2 ppd now, with >100 p/y hx. 5. HTN: meds currently on hold for hypotension 6. DM: borderline; HgbA1c sl elevated, but too low to start meds. monitor w / ISS. diabetic diet, nutritional consult 7. Psych: unclear hx (?depression), but on mirtazapine. cont home med. 8. Thrombocytopenia: stable in triple-digit lowish range. 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 monitor 9. Reynaud's syndrome/ leg discoloration: ?vasculitis. obtain serologies, derm consult for poss bx. 10. Prophylaxis: sq heparin for now; hold prior to interventions. PPI Vitals Vitals Vital Signs Date Time Temp Pulse Resp B/P Pulse Ox O2 Delivery O2 Flow Rate FiO2 07/23/16 10:00 60 11 87/48 96 Ventilator 07/23/16 08:00 98.6 98.6 07/22/16 16:07 5.0 Physical Exam General: Other (intubated, sadated) Heart: Regular rate Lungs: Crackles Abdomen: Normal bowel sounds, No tenderness, Other (Rounded and somewhat protruding. Patient states this is normal for him.) Extremities: No clubbing, Other (deep purple discoloration from bilat dorsi of feet to almost knees. open wounds covered with gauze.) Skin: Other (very dry, superficial blistering on LE ) Labs LABS Laboratory Tests Test 07/22/16 10:37 07/22/16 15:39 07/22/16 17:30 07/23/16 05:25 Glucose (Fingerstick) 95mg/dL (70-99) 97mg/dL (70-99) O2 Saturation 94% (92-99) Arterial Blood pH 7.22 (7.35-7.45) Arterial Blood pCO2 at Patient Temp 88mmHg (35-46) Arterial Blood pO2 at Patient Temp 82mmHg (65-108) Arterial Blood HCO3 35mmol/L (21-28) Arterial Blood Base Excess 4mmol/L (-3-3) White Blood Count 4.5x10^3/uL (4.0-11.0) Red Blood Count 5.01x10^6/uL (4.30-5.70) Hemoglobin 13.9g/dL (13.0-17.5) Hematocrit 44.8% (39.0-53.0) Mean Corpuscular Volume 90fL (79-100) Mean Corpuscular Hemoglobin 28pg (25-35) Mean Corpuscular Hemoglobin Concent 31g/dL (31-37) Red Cell Distribution Width 15.0% (11.5-14.5) Platelet Count 148x10^3/uL (140-400) Neutrophils (%) (Auto) 87% (31-73) Lymphocytes (%) (Auto) 6% (24-48) Monocytes (%) (Auto) 7% (0-9) Eosinophils (%) (Auto) 0% (0-3) Basophils (%) (Auto) 0% (0-3) Neutrophils # (Auto) 3.9x10^3uL (1.8-7.7) Lymphocytes # (Auto) 0.3x10^3/uL (1.0-4.8) Monocytes # (Auto) 0.3x10^3/uL (0.0-1.1) Eosinophils # (Auto) 0.0x10^3/uL (0.0-0.7) Basophils # (Auto) 0.0x10^3/uL (0.0-0.2) Sodium Level 143mmol/L (136-145) Potassium Level 4.6mmol/L (3.5-5.1) Chloride Level 102mmol/L (98-107) Carbon Dioxide Level 34mmol/L (21-32) Anion Gap 7 (6-14) Blood Urea Nitrogen 24mg/dL (8-26) Creatinine 1.4mg/dL (0.7-1.3) Estimated GFR (Cockcroft-Gault) 51.7 Glucose Level 136mg/dL (70-99) Calcium Level 9.0mg/dL (8.5-10.1) IWONA GUZMAN MD Jul 23, 2016 10:37
[2016-07-23 11:03] LABS: ANISOCYTOSIS PRESENT; PLT ESTIMATE ADEQUATE (ADEQUATE)
[2016-07-23 12:00] LABS: HCO3 ABG 32 mmol/L (21-28); PH ABG 7.28 (7.35-7.45); PO2 ABG 77 mmHg (65-108); SAT O2 ABG 95 % (92-99)
[2016-07-23 12:17] LABS: FIO2 ABG 50; PCO2 ABG 70 mmHg (35-46)
--- NOTE | 2016-07-23 15:22 | RAD ---
Abdominal aortogram with bilateral lower extremity arteriogram Indication: 61-year-old male hypertensive smoker with extensive bilateral lower extremity wounds with edema, thought to represent a combination of PAD and venous insufficiency. Diagnostic arteriogram, with possible intervention, has been requested by vascular surgery. Fluoroscopy time: 12.4 minutes Kerma-area Product: 219 Gycm2 Contrast material: 45 cc Omnipaque 300. 77 cc Visipaque 320. Anesthesia: This patient could not lie flat due to severe hypercapnic respiratory failure. Therefore, this study was performed under general anesthesia. Consent: The procedure was explained in its entirety to the patient and/or the patient's designated sales representative girls' apparel by a member of the treatment team. This included a discussion of risks and benefits and commonly accepted alternatives to the procedure, as well as expected consequences of no treatment at all. Discussion of risks included, but was not limited to, those that are most frequent and those that are rare, but possibly severe or life-threatening, as well as the possibility of unforeseen complications. Sterility: All elements of maximal sterile barrier technique were utilized, including cap, mask, sterile gown, sterile gloves, large sterile sheet, appropriate hand hygiene, and 2% chlorhexidine for cutaneous antisepsis. Procedure: Informed consent was obtained from the patient. He was placed supine on the angiography table. Preliminary ultrasound examination of right groin revealed wide patency of right common femoral artery, which was documented with a single hard copy ultrasound image. Right groin was then prepped and draped in the usual sterile fashion, utilizing all elements of maximal sterile barrier technique, as described above. Moderate sedation was provided with IV Versed and fentanyl. Using aseptic technique, local anesthesia, direct ultrasound guidance, and the micropuncture system, a 5 [place] right common femoral artery sheath was successfully introduced. Abdominal aortogram: A 5 [place] Omni Flush catheter was advanced through the right groin sheath and was positioned within suprarenal abdominal aorta. Omnipaque 300 was injected and abdominal aortogram DSA images were obtained. Findings: Infrarenal abdominal aorta is smooth in contour normally caliber, without stricture and without aneurysmal dilatation. Celiac trunk, SMA, and PATRICK are patent. Single left main renal artery is widely patent. Right kidney is not identified within right flank or within and ectopic position. 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 Oblique pelvis injection: The Omni Flush catheter was withdrawn into terminal abdominal aorta, just above bifurcation. Omnipaque 300 was injected and DSA images were obtained over pelvis in the UZMA projection. Findings: Common iliac and external iliac arteries are essentially unremarkable, bilaterally, without hemodynamically significant stenosis. Both hypogastric arteries are widely patent, as well. Left lower extremity arteriogram: The Omni Flush catheter was exchanged for a 4 [place]ian angled glide catheter, which was advanced across aortic bifurcation over a Glidewire and was positioned within contralateral left common femoral artery. Visipaque was injected and digital endograft images were obtained over right groin and proximal thigh. The angled glide catheter was then exchanged for a a 0.035 inch quick cross catheter, which was advanced into proximal left superficial femoral artery. Visipaque was injected and a runoff images were obtained from proximal thigh through foot. Findings: Left common femoral artery, bifurcation, and deep femoral artery are widely patent. Right SFA-popliteal arterial segment is unremarkable, with widely patent left tibial trifurcation, and with good three-vessel distal runoff. Right lower extremity runoff: The quick cross catheter was removed from the right groin sheath. The 5 [place] Omni Flush catheter was reintroduced through the right groin sheath and was positioned within ipsilateral distal right external iliac artery. Visipaque was injected and digital angiographic images were obtained from groin through foot. Findings: Right common femoral artery, bifurcation, and deep femoral artery are widely patent. Right SFA-popliteal arterial segment is unremarkable, without significant stenosis. Right tibial trifurcation is widely patent. Right posterior tibial artery is widely patent from origin through plantar branches at mid foot. Right anterior tibial artery is occluded at mid calf. Large caliber right peroneal artery is widely patent from origin through ankle, and provides prompt collateral perfusion to distal anterior tibial artery through dorsalis pedis artery at mid foot. Patient tolerated the procedure well without apparent complication. Hemostasis was achieved at the right groin puncture site utilizing the Angio-Seal system. Impression: Essentially unremarkable abdominal aortogram with bilateral lower extremity arteriogram, apart from nonvisualization of right kidney, and apart from segmental occlusion of distal right anterior tibial artery, as described. There is no significant PAD to explain the patient's bilateral lower extremity wounds. Right anterior tibial artery is occluded at mid calf, is reconstituted just above right ankle via anterior branch of peroneal artery, and is widely patent through dorsalis pedis artery at mid foot.
[2016-07-23] MEDS: BUDESONIDE 0.5 MG/2 ML NEBU NEB SCH (19:30)
[2016-07-23] MEDS: MIRTAZAPINE 15 MG TABLET PO SCH (21:11)
[2016-07-24] VITALS (24 sets, daily range): BP systolic 101–144; BP diastolic 61–82
[2016-07-24] MEDS: PIPERACILLIN/TAZOBACTAM 3.375 GM in IV NORMAL SALINE 50ML 50 ML IV SCH ×5 (00:24→23:27)
[2016-07-24] MEDS: PROPOFOL 100 ML IV PRN ×5 (03:05→21:22)
[2016-07-24] MEDS: methylPREDNISolone SOD SUCC PF 40 MG/ML VIAL. IV SCH ×3 (05:41→20:52)
[2016-07-24 06:08] LABS: CALCIUM 8.8 mg/dL (8.5-10.1); CREATININE 1.4 mg/dL (0.7-1.3); GFR 51.7; POTASSIUM 3.7 mmol/L (3.5-5.1)
--- NOTE | 2016-07-24 07:00 | PDOC ---
PULMONARY PROGRESS NOTES Subjective on vent, sedated, off sedation agitated, has mod ett secretion Vitals Vital Signs Date Time Temp Pulse Resp B/P Pulse Ox O2 Delivery O2 Flow Rate FiO2 07/24/16 06:26 93 Ventilator 07/24/16 06:00 50 15 136/73 07/24/16 03:00 99.0 99.0 Comments ros discussed w rn, as mentioned as above other sys otherwise neg General: Lethargic HEENT: Other (nc at perrl, nose clear, orally intubated) Lungs: Crackles Cardiovascular: S1, S2 Abdomen: Soft Extremities: Other Skin: Warm Labs Laboratory Tests Test 07/22/16 10:37 07/22/16 15:39 07/22/16 17:30 07/23/16 05:25 Glucose (Fingerstick) 95mg/dL (70-99) 97mg/dL (70-99) O2 Saturation 94% (92-99) Arterial Blood pH 7.22 (7.35-7.45) Arterial Blood pCO2 at Patient Temp 88mmHg (35-46) Arterial Blood pO2 at Patient Temp 82mmHg (65-108) Arterial Blood HCO3 35mmol/L (21-28) Arterial Blood Base Excess 4mmol/L (-3-3) White Blood Count 4.5x10^3/uL (4.0-11.0) Red Blood Count 5.01x10^6/uL (4.30-5.70) Hemoglobin 13.9g/dL (13.0-17.5) Hematocrit 44.8% (39.0-53.0) Mean Corpuscular Volume 90fL (79-100) Mean Corpuscular Hemoglobin 28pg (25-35) Mean Corpuscular Hemoglobin Concent 31g/dL (31-37) Red Cell Distribution Width 15.0% (11.5-14.5) Platelet Count 148x10^3/uL (140-400) Neutrophils (%) (Auto) 87% (31-73) Lymphocytes (%) (Auto) 6% (24-48) Monocytes (%) (Auto) 7% (0-9) Eosinophils (%) (Auto) 0% (0-3) Basophils (%) (Auto) 0% (0-3) Neutrophils # (Auto) 3.9x10^3uL (1.8-7.7) Lymphocytes # (Auto) 0.3x10^3/uL (1.0-4.8) Monocytes # (Auto) 0.3x10^3/uL (0.0-1.1) Eosinophils # (Auto) 0.0x10^3/uL (0.0-0.7) Basophils # (Auto) 0.0x10^3/uL (0.0-0.2) Segmented Neutrophils % 85% (35-66) Lymphocytes % 9% (24-48) Monocytes % 6% (0-10) Platelet Estimate Adequate (ADEQUATE) Anisocytosis Present Sodium Level 143mmol/L (136-145) Potassium Level 4.6mmol/L (3.5-5.1) Chloride Level 102mmol/L (98-107) Carbon Dioxide Level 34mmol/L (21-32) Anion Gap 7 (6-14) Blood Urea Nitrogen 24mg/dL (8-26) Creatinine 1.4mg/dL (0.7-1.3) Estimated GFR (Cockcroft-Gault) 51.7 Glucose Level 136mg/dL (70-99) Calcium Level 9.0mg/dL (8.5-10.1) Test 07/23/16 08:00 07/23/16 12:49 07/24/16 05:15 O2 Saturation 95% (92-99) Arterial Blood pH 7.28 (7.35-7.45) Arterial Blood pCO2 at Patient Temp 70mmHg (35-46) Arterial Blood pO2 at Patient Temp 77mmHg (65-108) Arterial Blood HCO3 32mmol/L (21-28) Arterial Blood Base Excess 3mmol/L (-3-3) FiO2 50 Glucose (Fingerstick) 114mg/dL (70-99) Sodium Level 142mmol/L (136-145) Potassium Level 3.7mmol/L (3.5-5.1) Chloride Level 102mmol/L (98-107) Carbon Dioxide Level 34mmol/L (21-32) Anion Gap 6 (6-14) Blood Urea Nitrogen 29mg/dL (8-26) Creatinine 1.4mg/dL (0.7-1.3) Estimated GFR (Cockcroft-Gault) 51.7 Glucose Level 206mg/dL (70-99) Calcium Level 8.8mg/dL (8.5-10.1) Laboratory Tests Test 07/23/16 08:00 07/23/16 12:49 07/24/16 05:15 O2 Saturation 95% (92-99) Arterial Blood pH 7.28 (7.35-7.45) Arterial Blood pCO2 at Patient Temp 70mmHg (35-46) Arterial Blood pO2 at Patient Temp 77mmHg (65-108) Arterial Blood HCO3 32mmol/L (21-28) Arterial Blood Base Excess 3mmol/L (-3-3) FiO2 50 Glucose (Fingerstick) 114mg/dL (70-99) Sodium Level 142mmol/L (136-145) Potassium Level 3.7mmol/L (3.5-5.1) Chloride Level 102mmol/L (98-107) Carbon Dioxide Level 34mmol/L (21-32) Anion Gap 6 (6-14) Blood Urea Nitrogen 29mg/dL (8-26) Creatinine 1.4mg/dL (0.7-1.3) Estimated GFR (Cockcroft-Gault) 51.7 Glucose Level 206mg/dL (70-99) Calcium Level 8.8mg/dL (8.5-10.1) Medications Active Scripts Medications Dose Route/Sig Days Date Category Ventolin Hfa Inhaler (Albuterol Sulfate) 18 Gm Hfa.aer.ad 2 Puff INH PRN Q6HRS PRN 07/18/16 Reported Ibuprofen 400 Mg Tablet 400 Mg PO TID PRN 07/18/16 Reported Neurontin (Gabapentin) 100 Mg Capsule 100 Mg PO BID 07/18/16 Reported Mirtazapine 30 Mg Tablet 1 Tab PO QHS 07/18/16 Reported Spironolactone 25 Mg Tablet 1 Tab PO DAILY 07/18/16 Reported Duoneb 0.5-3(2.5) Mg/3 Ml (Albuterol/Ipratropium) 3 Ml Ampul.neb 3 Ml NEB QID PRN 07/18/[address] reviewed, 1. Emphysema. 2. Moderate interlobular septal thickening in the lungs suggesting interstitial edema, although there may be a component of fibrosis. 3. Tiny right pleural effusion. 4. Mild right lower lobe atelectasis and/or pneumonitis. 5. Tiny pericardial effusion. 6. Probable cholelithiasis. Impression . 1. Acute on chronic hypoxemic hypercapnic respiratory failure, multifactorial in nature. 2.pulmonary fibrosis. 3. Bilateral lower extremity cellulitis with evidence of peripheral arterial disease. Workup in progress. 4. Tobacco dependent. 5. Hypertension. 6. Obesity. 7. Significant occupational exposure. The patient worked in the [employer]. 8. Suspect ARNEL/OHS CT Chest 1. Emphysema. 2. Moderate interlobular septal thickening in the lungs suggesting interstitial edema, although there may be a component of fibrosis. 3. Tiny right pleural effusion. 4. Mild right lower lobe atelectasis and/or pneumonitis. 5. Tiny pericardial effusion. 6. Probable cholelithiasis. Plan . Continue vent setting, vent setting reviewed, sbt, reeval after sbt 02 titration Lasix Continue current antibiotics per ID. Nebulized treatments. add ics solumedrol am cxr, abg today and review The patient instructed on the importance of discontinuing tobacco use yesterday , will discuss more when extubated discussed w ADRIÁN Cheng MD Jul 24, 2016 07:00
[2016-07-24] MEDS: INSULIN ASPART 300 UNITS/3 ML INSULN.PEN SQ SCH ×3 (08:00→17:22)
[2016-07-24] MEDS: IPRATRPIUM/ALBUTEROL 0.5/2.5MG 3 ML NEBU. NEB SCH ×4 (08:34→20:02)
[2016-07-24] MEDS: BUDESONIDE 0.5 MG/2 ML NEBU NEB SCH (08:36)
[2016-07-24] MEDS: ASPIRIN ENTERIC COATED 81 MG TABLET.DR. PO SCH (08:54)
[2016-07-24] MEDS: FLUCONAZOLE 100 MG TABLET. PO SCH (08:54)
[2016-07-24] MEDS: GABAPENTIN 100 MG CAPSULE. PO SCH ×2 (08:55→20:54)
[2016-07-24] MEDS: LACTOBACILLUS ACIDOPH & BULGAR 1 TABLET. PO SCH ×3 (08:55→17:14)
[2016-07-24] MEDS: SPIRONOLACTONE 25 MG TABLET PO SCH (08:55)
[2016-07-24] MEDS: LISINOPRIL 5 MG TABLET. PO SCH (08:56)
--- NOTE | 2016-07-24 08:56 | PDOC ---
Infectious Disease Note Subjective Subjective Sedated. Remains intubated. FiO2 40%. 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 MSSA, PSA, Proteus, improved PAD - aortogram clean JONATHAN Hyperglycemia Tinea Pre-diabetes, HbA1c 6.0 MRSA screen positive Respiratory failure Plan Plan of Care Continue Zosyn and fluconazole Consult Derm pending Cont Probiotics Monitor labs Attending Co-Sign The patient was seen and interviewed as well as examined at the bedside. The chart was reviewed. The case was discussed. Agree with the plan of care. AGNES DELGADO APRN Jul 24, 2016 08:56 TAHMINA GOEL MD Jul 24, 2016 12:52
--- NOTE | 2016-07-24 10:02 | PDOC ---
PROGRESS NOTES Chief Complaint Chief Complaint Leg pain ASSESSMENT AND PLAN: 1. LE cellulitis: on Abx. ID following 2. PVD: art US with occlusive dz. eval with arteriogram aborted 2/2 hypoxia, done with intub/gen anesthesia: surprisingly clean 3. Hypoxic, hypercarbic respir status w/o distress: suspect chronic, COPD, with ongoing tobacco abuse. supplemental O2, nebs. CT chest with emphysema , interstitial thickening (edema vs fibrosis). intubated for procedure. vent management as per Pulm 4. Hypotension: resolved. prob 2/2 sedatives. BP meds on hold 5. HTN: currently normotensive, monitor, restart meds if BP increases further 6. DM: borderline; HgbA1c sl elevated, but too low to start meds. monitor w / ISS. diabetic diet, nutritional consult 7. Psych: unclear hx (?depression), but on mirtazapine. cont home med. 8. Thrombocytopenia: stable in triple-digit lowish range. 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 monitor 9. Reynaud's syndrome/ leg discoloration: ?vasculitis. obtain serologies, . 10. Prophylaxis: sq heparin for now; hold prior to interventions. PPI 11. Tobacco use: <1/2 ppd now, with >100 p/y hx. Vitals Vitals Vital Signs Date Time Temp Pulse Resp B/P Pulse Ox O2 Delivery O2 Flow Rate FiO2 07/24/16 08:56 49 136/76 07/24/16 08:34 92 Ventilator 07/24/16 06:00 15 07/24/16 03:00 99.0 99.0 Physical Exam General: Other (intubated, sadated) Heart: Regular rate Lungs: Crackles Abdomen: Normal bowel sounds, No tenderness, Other (Rounded and somewhat protruding. Patient states this is normal for him.) Extremities: No clubbing, Other (deep purple discoloration from bilat dorsi of feet to almost knees. open wounds covered with gauze.) Skin: Other (very dry, superficial blistering on LE ) Labs LABS Laboratory Tests Test 07/23/16 12:49 07/24/16 05:15 Glucose (Fingerstick) 114mg/dL (70-99) Sodium Level 142mmol/L (136-145) Potassium Level 3.7mmol/L (3.5-5.1) Chloride Level 102mmol/L (98-107) Carbon Dioxide Level 34mmol/L (21-32) Anion Gap 6 (6-14) Blood Urea Nitrogen 29mg/dL (8-26) Creatinine 1.4mg/dL (0.7-1.3) Estimated GFR (Cockcroft-Gault) 51.7 Glucose Level 206mg/dL (70-99) Calcium Level 8.8mg/dL (8.5-10.1) Review of Systems Review of Systems intub.ed, sedated IWONA GUZMAN MD Jul 24, 2016 10:02
[2016-07-24 12:58] LABS: HCO3 ABG 33 mmol/L (21-28); PCO2 ABG 50 mmHg (35-46); PH ABG 7.43 (7.35-7.45); PO2 ABG 67 mmHg (65-108); SAT O2 ABG 93 % (92-99)
[2016-07-24 13:05] LABS: FIO2 ABG 40
--- NOTE | 2016-07-24 13:06 | RAD ---
Indication: Endogastric tube placement. Technique: Portable KUB was obtained centered just below the diaphragm. Comparison is from 2 days ago. Findings: Endogastric tube is in position. No dilated small bowel loop is apparent. Heart is enlarged. Impression: Endogastric tube is in place.
[2016-07-24] MEDS: DO NOT USE 40 MG/0.4 ML DISP.SYRIN SQ SCH (13:09)
[2016-07-24] MEDS: MIRTAZAPINE 15 MG TABLET PO SCH (20:52)
[2016-07-25] VITALS (24 sets, daily range): BP systolic 103–151; BP diastolic 55–85
[2016-07-25] MEDS: PROPOFOL 100 ML IV PRN ×8 (00:33→23:36)
[2016-07-25] MEDS: methylPREDNISolone SOD SUCC PF 40 MG/ML VIAL. IV SCH ×3 (05:45→21:06)
[2016-07-25] MEDS: PIPERACILLIN/TAZOBACTAM 3.375 GM in IV NORMAL SALINE 50ML 50 ML IV SCH ×4 (05:45→23:42)
--- NOTE | 2016-07-25 07:28 | PDOC ---
PULMONARY PROGRESS NOTES Subjective on vent, sedated, off sedation agitated, has small to mod ett secretion Vitals Vital Signs Date Time Temp Pulse Resp B/P Pulse Ox O2 Delivery O2 Flow Rate FiO2 07/25/16 06:00 49 16 134/80 93 Ventilator 07/25/16 03:00 97.5 97.5 Comments ros discussed w rn, as mentioned as above other sys otherwise neg General: Lethargic HEENT: Other (nc at perrl, nose clear, orally intubated) Lungs: Crackles Cardiovascular: S1, S2 Abdomen: Soft Extremities: Other Skin: Warm Labs Laboratory Tests Test 07/23/16 08:00 07/23/16 12:49 07/24/16 05:15 07/24/16 12:50 O2 Saturation 95% (92-99) 93% (92-99) Arterial Blood pH 7.28 (7.35-7.45) 7.43 (7.35-7.45) Arterial Blood pCO2 at Patient Temp 70mmHg (35-46) 50mmHg (35-46) Arterial Blood pO2 at Patient Temp 77mmHg (65-108) 67mmHg (65-108) Arterial Blood HCO3 32mmol/L (21-28) 33mmol/L (21-28) Arterial Blood Base Excess 3mmol/L (-3-3) 7mmol/L (-3-3) FiO2 50 40 Glucose (Fingerstick) 114mg/dL (70-99) Sodium Level 142mmol/L (136-145) Potassium Level 3.7mmol/L (3.5-5.1) Chloride Level 102mmol/L (98-107) Carbon Dioxide Level 34mmol/L (21-32) Anion Gap 6 (6-14) Blood Urea Nitrogen 29mg/dL (8-26) Creatinine 1.4mg/dL (0.7-1.3) Estimated GFR (Cockcroft-Gault) 51.7 Glucose Level 206mg/dL (70-99) Calcium Level 8.8mg/dL (8.5-10.1) Test 07/24/16 17:16 07/24/16 23:51 Glucose (Fingerstick) 183mg/dL (70-99) 189mg/dL (70-99) Laboratory Tests Test 07/24/16 12:50 07/24/16 17:16 07/24/16 23:51 O2 Saturation 93% (92-99) Arterial Blood pH 7.43 (7.35-7.45) Arterial Blood pCO2 at Patient Temp 50mmHg (35-46) Arterial Blood pO2 at Patient Temp 67mmHg (65-108) Arterial Blood HCO3 33mmol/L (21-28) Arterial Blood Base Excess 7mmol/L (-3-3) FiO2 40 Glucose (Fingerstick) 183mg/dL (70-99) 189mg/dL (70-99) Medications Active Scripts Medications Dose Route/Sig Days Date Category Ventolin Hfa Inhaler (Albuterol Sulfate) 18 Gm Hfa.aer.ad 2 Puff INH PRN Q6HRS PRN 07/18/16 Reported Ibuprofen 400 Mg Tablet 400 Mg PO TID PRN 07/18/16 Reported Neurontin (Gabapentin) 100 Mg Capsule 100 Mg PO BID 07/18/16 Reported Mirtazapine 30 Mg Tablet 1 Tab PO QHS 07/18/16 Reported Spironolactone 25 Mg Tablet 1 Tab PO DAILY 07/18/16 Reported Duoneb 0.5-3(2.5) Mg/3 Ml (Albuterol/Ipratropium) 3 Ml Ampul.neb 3 Ml NEB QID PRN 07/18/16 Reported Comments cxr reviewed, ll infilt atelectasis effusion. ct reviewed, 1. Emphysema. 2. Moderate interlobular septal thickening in the lungs suggesting interstitial edema, although there may be a component of fibrosis. 3. Tiny right pleural effusion. 4. Mild right lower lobe atelectasis and/or pneumonitis. 5. Tiny pericardial effusion. 6. Probable cholelithiasis. Impression . 1. Acute on chronic hypoxemic hypercapnic respiratory failure, multifactorial in nature. 2.pulmonary fibrosis. 3. Bilateral lower extremity cellulitis with evidence of peripheral arterial disease. Workup in progress. 4. Tobacco dependent. 5. Hypertension. 6. Obesity. 7. Significant occupational exposure. The patient worked in the [employer]. 8. Suspect ARNEL/OHS CT Chest 1. Emphysema. 2. Moderate interlobular septal thickening in the lungs suggesting interstitial edema, although there may be a component of fibrosis. 3. Tiny right pleural effusion. 4. Mild right lower lobe atelectasis and/or pneumonitis. 5. Tiny pericardial effusion. 6. Probable cholelithiasis. Plan . Continue vent setting, vent setting reviewed, sbt, reeval after sbt 02 titration Lasix Continue current antibiotics per ID. Nebulized treatments. add ics solumedrol no change sputum cx am cxr, abg The patient instructed on the importance of discontinuing tobacco use before, will discuss more when extubated discussed w rn, rt ADRIÁN BURROWS MD Jul 25, 2016 07:28
[2016-07-25] MEDS: GABAPENTIN 100 MG CAPSULE. PO SCH ×2 (08:27→21:06)
[2016-07-25] MEDS: SPIRONOLACTONE 25 MG TABLET PO SCH (08:27)
[2016-07-25] MEDS: LACTOBACILLUS ACIDOPH & BULGAR 1 TABLET. PO SCH ×3 (08:27→19:21)
[2016-07-25] MEDS: LISINOPRIL 5 MG TABLET. PO SCH (08:28)
[2016-07-25] MEDS: ASPIRIN ENTERIC COATED 81 MG TABLET.DR. PO SCH (08:28)
[2016-07-25] MEDS: FLUCONAZOLE 100 MG TABLET. PO SCH (08:28)
[2016-07-25] MEDS: IPRATRPIUM/ALBUTEROL 0.5/2.5MG 3 ML NEBU. NEB SCH ×4 (08:45→20:40)
[2016-07-25] MEDS: BUDESONIDE 0.5 MG/2 ML NEBU NEB SCH ×3 (08:45→20:40)
--- NOTE | 2016-07-25 08:53 | PDOC ---
PROGRESS NOTES Chief Complaint Chief Complaint Leg pain ASSESSMENT AND PLAN: 1. LE cellulitis: on Abx. ID following 2. PVD: art US with occlusive dz. eval with arteriogram aborted 2/2 hypoxia, done with intub/gen anesthesia: surprisingly clean 3. Hypoxic, hypercarbic respir status w/o distress: suspect chronic, COPD, with ongoing tobacco abuse. supplemental O2, nebs. CT chest with emphysema , interstitial thickening (edema vs fibrosis). intubated for procedure. vent management as per Pulm 4. Hypotension: resolved. prob 2/2 sedatives. BP meds on hold 5. HTN: currently normotensive, monitor, restart meds if BP increases further 6. DM: borderline; HgbA1c sl elevated, but too low to start meds. monitor w / ISS. diabetic diet, nutritional consult 7. Psych: unclear hx (?depression), but on mirtazapine. cont home med. 8. Thrombocytopenia: stable in triple-digit lowish range. 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 monitor 9. Reynaud's syndrome/ leg discoloration: ?vasculitis. obtain serologies. 10. Prophylaxis: sq heparin for now; hold prior to interventions. PPI 11. Tobacco use: <1/2 ppd now, with >100 p/y hx. Vitals Vitals Vital Signs Date Time Temp Pulse Resp B/P Pulse Ox O2 Delivery O2 Flow Rate FiO2 07/25/16 08:45 93 Ventilator 07/25/16 08:28 134/78 07/25/16 08:00 98.2 87 16 98.2 Physical Exam General: Other (intubated, sadated) Heart: Regular rate Lungs: Crackles Abdomen: Normal bowel sounds, No tenderness, Other (Rounded and somewhat protruding. Patient states this is normal for him.) Extremities: No clubbing, Other (deep purple discoloration from bilat dorsi of feet to almost knees. open wounds covered with gauze.) Skin: Other (very dry, superficial blistering on LE ) Labs LABS Laboratory Tests Test 07/24/16 12:50 07/24/16 17:16 07/24/16 23:51 O2 Saturation 93% (92-99) Arterial Blood pH 7.43 (7.35-7.45) Arterial Blood pCO2 at Patient Temp 50mmHg (35-46) Arterial Blood pO2 at Patient Temp 67mmHg (65-108) Arterial Blood HCO3 33mmol/L (21-28) Arterial Blood Base Excess 7mmol/L (-3-3) FiO2 40 Glucose (Fingerstick) 183mg/dL (70-99) 189mg/dL (70-99) Review of Systems Review of Systems intub.ed, sedated IWONA GUZMAN MD Jul 25, 2016 08:53
--- NOTE | 2016-07-25 09:21 | RAD ---
Indication: Respiratory failure. Technique: Semi upright portable chest radiograph was obtained. Comparison is from July 19, 2016. Findings: Endotracheal tube is in place. Endogastric tube is in place. It projects off the inferior margin the film. Interstitial prominence is noted. Heart is enlarged. Costophrenic angles are blunted. Impression: 1. Endotracheal tube and endogastric tube are in place. 2. Findings suggesting CHF. This may be superimposed on a background of chronic interstitial prominence.
--- NOTE | 2016-07-25 09:25 | PDOC ---
Infectious Disease Note Subjective Subjective Sedated. Remains intubated. FiO2 40%. 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 MSSA, PSA, Proteus, improved PAD - aortogram clean JONATHAN Hyperglycemia Tinea Pre-diabetes, HbA1c 6.0 MRSA screen positive Respiratory failure Plan Plan of Care Continue Zosyn and fluconazole Consult Derm pending Cont Probiotics Monitor labs Attending Co-Sign The patient was seen and interviewed as well as examined at the bedside. The chart was reviewed. The case was discussed. Agree with the plan of care. AGNES DELGADO APRN Jul 25, 2016 09:25 TAHMINA GOEL MD Jul 25, 2016 11:22
[2016-07-25] MEDS: FENTANYL STANDARD PCA 30 ML IV PRN ×4 (09:37→23:37)
[2016-07-25] MEDS: INSULIN ASPART 300 UNITS/3 ML INSULN.PEN SQ SCH ×3 (10:18→19:28)
[2016-07-25 11:41] LABS: HCO3 ABG 32 mmol/L (21-28); PCO2 ABG 48 mmHg (35-46); PH ABG 7.44 (7.35-7.45); PO2 ABG 65 mmHg (65-108); SAT O2 ABG 93 % (92-99)
[2016-07-25 11:43] LABS: FIO2 ABG 40
[2016-07-25] MEDS: CHLORHEXIDINE 0.12% 15 ML MOUTHWASH. MM SCH ×2 (12:25→21:08)
[2016-07-25] MEDS: DO NOT USE 40 MG/0.4 ML DISP.SYRIN SQ SCH (12:25)
[2016-07-25] MEDS ORDERED: MINERAL OIL/PETROLATUM,WHITE OPHTH OINT 3.5GM TUBE. OU PRN (19:15)
[2016-07-25] MEDS: SCOPOLAMINE 1.5MG PATCH. TD SCH (19:22)
[2016-07-25] MEDS: MIRTAZAPINE 15 MG TABLET PO SCH (21:07)
[2016-07-26] VITALS (24 sets, daily range): BP systolic 92–169; BP diastolic 50–91
[2016-07-26] MEDS: PROPOFOL 100 ML IV PRN ×5 (04:22→22:14)
[2016-07-26] MEDS: PIPERACILLIN/TAZOBACTAM 3.375 GM in IV NORMAL SALINE 50ML 50 ML IV SCH ×3 (05:38→16:49)
[2016-07-26] MEDS: methylPREDNISolone SOD SUCC PF 40 MG/ML VIAL. IV SCH ×3 (05:39→22:13)
[2016-07-26 05:52] LABS: BASO % 0 % (0-3); EOS % 0 % (0-3); HEMATOCRIT 46.9 % (39.0-53.0); HEMOGLOBIN 14.8 g/dL (13.0-17.5); LYMPH # 0.2 x10^3/uL (1.0-4.8); LYMPH % 6 % (24-48); MEAN CORPUSCULAR HEMOGLOBIN 28 pg (25-35); MEAN CORPUSCULAR HGB CONC 32 g/dL (31-37); MEAN CORPUSCULAR VOLUME 87 fL (79-100); MONO % 11 % (0-9); NEUT % 83 % (31-73); PLATELET COUNT 155 x10^3/uL (140-400); RED BLOOD COUNT 5.38 x10^6/uL (4.30-5.70); RED CELL DISTRIBUTION WIDTH 15.2 % (11.5-14.5); WHITE BLOOD COUNT 3.5 x10^3/uL (4.0-11.0)
[2016-07-26 06:13] LABS: CALCIUM 8.8 mg/dL (8.5-10.1); CREATININE 1.1 mg/dL (0.7-1.3); GFR 68.3; POTASSIUM 3.8 mmol/L (3.5-5.1)
--- NOTE | 2016-07-26 07:51 | RAD ---
Portable chest, 07/26/2016: History: Respiratory failure Comparison is made yesterday study. The ET tube and NG tube remain in place in satisfactory positions. The heart is enlarged. The pulmonary vascularity is congested. There are interstitial and airspace opacities in both lungs compatible with pulmonary edema. A component of pneumonia cannot be excluded. The hemidiaphragms are obscured by infiltrate and pleural fluid. The findings are unchanged since yesterday's study. IMPRESSION: Ongoing congestive heart failure with pulmonary edema and pleural fluid, unchanged since yesterday's study.
[2016-07-26] MEDS: ASPIRIN ENTERIC COATED 81 MG TABLET.DR. PO SCH (07:58)
--- NOTE | 2016-07-26 08:19 | PDOC ---
Infectious Disease Note Subjective Subjective Sedated. Remains intubated. FiO2 40%. Failed weaning attempts No fever last 24 hours No diarrhea reported ROS ROS GEN: Denies fevers, chills, sweats HEENT: Denies blurred vision, sore throat CV: Denies chest pain RESP: Denies shortness of air, cough GI: Denies n/v/d NEURO: Denies confusion, dizziness MSK: Denies weakness, joint pain/swelling Vital Sign Vital Signs Vital Signs Date Time Temp Pulse Resp B/P Pulse Ox O2 Delivery O2 Flow Rate FiO2 07/26/16 07:00 48 16 142/80 97 Ventilator 07/26/16 06:00 97.6 97.6 07/25/16 20:00 5.0 Physical Exam PHYSICAL EXAM GENERAL: NAD, Alert HEENT: PERRL, OC/OP NECK: Supple, no JVD, no LN LUNGS: Clear HEART: S1S2, no gallop, no murmur ABD: Soft, NT, no organomegaly, no rebound EXT: No edema, no cyanosis 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, 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 3, no focal neurologic deficit SKIN: No rash IV: ok Labs Lab Laboratory Tests Test 07/25/16 11:30 07/26/16 05:30 O2 Saturation 93% (92-99) Arterial Blood pH 7.44 (7.35-7.45) Arterial Blood pCO2 at Patient Temp 48mmHg (35-46) Arterial Blood pO2 at Patient Temp 65mmHg (65-108) Arterial Blood HCO3 32mmol/L (21-28) Arterial Blood Base Excess 6mmol/L (-3-3) FiO2 40 White Blood Count 3.5x10^3/uL (4.0-11.0) Red Blood Count 5.38x10^6/uL (4.30-5.70) Hemoglobin 14.8g/dL (13.0-17.5) Hematocrit 46.9% (39.0-53.0) Mean Corpuscular Volume 87fL (79-100) Mean Corpuscular Hemoglobin 28pg (25-35) Mean Corpuscular Hemoglobin Concent 32g/dL (31-37) Red Cell Distribution Width 15.2% (11.5-14.5) Platelet Count 155x10^3/uL (140-400) Neutrophils (%) (Auto) 83% (31-73) Lymphocytes (%) (Auto) 6% (24-48) Monocytes (%) (Auto) 11% (0-9) Eosinophils (%) (Auto) 0% (0-3) Basophils (%) (Auto) 0% (0-3) Neutrophils # (Auto) 2.9x10^3uL (1.8-7.7) Lymphocytes # (Auto) 0.2x10^3/uL (1.0-4.8) Monocytes # (Auto) 0.4x10^3/uL (0.0-1.1) Eosinophils # (Auto) 0.0x10^3/uL (0.0-0.7) Basophils # (Auto) 0.0x10^3/uL (0.0-0.2) Sodium Level 145mmol/L (136-145) Potassium Level 3.8mmol/L (3.5-5.1) Chloride Level 106mmol/L (98-107) Carbon Dioxide Level 33mmol/L (21-32) Anion Gap 6 (6-14) Blood Urea Nitrogen 36mg/dL (8-26) Creatinine 1.1mg/dL (0.7-1.3) Estimated GFR (Cockcroft-Gault) 68.3 Glucose Level 208mg/dL (70-99) Calcium Level 8.8mg/dL (8.5-10.1) Objective Assessment LE Cellulitis. MSSA, PSA, Proteus, improved PAD - aortogram clean JONATHAN Hyperglycemia Tinea Pre-diabetes, HbA1c 6.0 MRSA screen positive Respiratory failure Plan Plan of Care Continue Zosyn and fluconazole Consult Derm pending Cont Probiotics Monitor labs TAHMINA GOEL MD Jul 26, 2016 08:19
--- NOTE | 2016-07-26 09:12 | PDOC ---
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 Mild right lower lobe atelectasis and/or pneumonitis. Tiny pericardial effusion. History of Present Illness History of Present Illness Intubated, PEEP 5 FiO2 40% TF running GOod UO On fentanyl and propofol LAbs: PLatelets coming up to 155 ABG today: 7.44/48/65 PLAN: CPM MIght be able to start some DVT prophy if platelets dont drop WIll consider lovenox Extubation plans per pulmo LABs in AM Vitals Vitals Vital Signs Date Time Temp Pulse Resp B/P Pulse Ox O2 Delivery O2 Flow Rate FiO2 07/26/16 08:00 96.9 58 16 148/78 97 Ventilator 96.9 07/25/16 20:00 5.0 Physical Exam General: Other (intubated, sadated) Heart: Regular rate Lungs: Crackles Abdomen: Normal bowel sounds, No tenderness, Other (Rounded and somewhat protruding. Patient states this is normal for him.) Extremities: No clubbing, Other (deep purple discoloration from bilat dorsi of feet to almost knees. open wounds covered with gauze.) Skin: Other (very dry, superficial blistering on LE ) Labs LABS Laboratory Tests Test 07/25/16 11:30 07/26/16 05:30 O2 Saturation 93% (92-99) Arterial Blood pH 7.44 (7.35-7.45) Arterial Blood pCO2 at Patient Temp 48mmHg (35-46) Arterial Blood pO2 at Patient Temp 65mmHg (65-108) Arterial Blood HCO3 32mmol/L (21-28) Arterial Blood Base Excess 6mmol/L (-3-3) FiO2 40 White Blood Count 3.5x10^3/uL (4.0-11.0) Red Blood Count 5.38x10^6/uL (4.30-5.70) Hemoglobin 14.8g/dL (13.0-17.5) Hematocrit 46.9% (39.0-53.0) Mean Corpuscular Volume 87fL (79-100) Mean Corpuscular Hemoglobin 28pg (25-35) Mean Corpuscular Hemoglobin Concent 32g/dL (31-37) Red Cell Distribution Width 15.2% (11.5-14.5) Platelet Count 155x10^3/uL (140-400) Neutrophils (%) (Auto) 83% (31-73) Lymphocytes (%) (Auto) 6% (24-48) Monocytes (%) (Auto) 11% (0-9) Eosinophils (%) (Auto) 0% (0-3) Basophils (%) (Auto) 0% (0-3) Neutrophils # (Auto) 2.9x10^3uL (1.8-7.7) Lymphocytes # (Auto) 0.2x10^3/uL (1.0-4.8) Monocytes # (Auto) 0.4x10^3/uL (0.0-1.1) Eosinophils # (Auto) 0.0x10^3/uL (0.0-0.7) Basophils # (Auto) 0.0x10^3/uL (0.0-0.2) Sodium Level 145mmol/L (136-145) Potassium Level 3.8mmol/L (3.5-5.1) Chloride Level 106mmol/L (98-107) Carbon Dioxide Level 33mmol/L (21-32) Anion Gap 6 (6-14) Blood Urea Nitrogen 36mg/dL (8-26) Creatinine 1.1mg/dL (0.7-1.3) Estimated GFR (Cockcroft-Gault) 68.3 Glucose Level 208mg/dL (70-99) Calcium Level 8.8mg/dL (8.5-10.1) Review of Systems Review of Systems intubated Assessment and Plan Assessmemt and Plan Problems Medical Problems: (1) Cellulitis Status: Acute Problems: Comment Review of Relevant I have reviewed the following items gosia (where applicable) has been applied. Labs Laboratory Tests Test 07/24/16 12:50 07/24/16 17:16 07/24/16 23:51 07/25/16 11:30 O2 Saturation 93% (92-99) 93% (92-99) Arterial Blood pH 7.43 (7.35-7.45) 7.44 (7.35-7.45) Arterial Blood pCO2 at Patient Temp 50mmHg (35-46) 48mmHg (35-46) Arterial Blood pO2 at Patient Temp 67mmHg (65-108) 65mmHg (65-108) Arterial Blood HCO3 33mmol/L (21-28) 32mmol/L (21-28) Arterial Blood Base Excess 7mmol/L (-3-3) 6mmol/L (-3-3) FiO2 40 40 Glucose (Fingerstick) 183mg/dL (70-99) 189mg/dL (70-99) Test 07/26/16 05:30 White Blood Count 3.5x10^3/uL (4.0-11.0) Red Blood Count 5.38x10^6/uL (4.30-5.70) Hemoglobin 14.8g/dL (13.0-17.5) Hematocrit 46.9% (39.0-53.0) Mean Corpuscular Volume 87fL (79-100) Mean Corpuscular Hemoglobin 28pg (25-35) Mean Corpuscular Hemoglobin Concent 32g/dL (31-37) Red Cell Distribution Width 15.2% (11.5-14.5) Platelet Count 155x10^3/uL (140-400) Neutrophils (%) (Auto) 83% (31-73) Lymphocytes (%) (Auto) 6% (24-48) Monocytes (%) (Auto) 11% (0-9) Eosinophils (%) (Auto) 0% (0-3) Basophils (%) (Auto) 0% (0-3) Neutrophils # (Auto) 2.9x10^3uL (1.8-7.7) Lymphocytes # (Auto) 0.2x10^3/uL (1.0-4.8) Monocytes # (Auto) 0.4x10^3/uL (0.0-1.1) Eosinophils # (Auto) 0.0x10^3/uL (0.0-0.7) Basophils # (Auto) 0.0x10^3/uL (0.0-0.2) Sodium Level 145mmol/L (136-145) Potassium Level 3.8mmol/L (3.5-5.1) Chloride Level 106mmol/L (98-107) Carbon Dioxide Level 33mmol/L (21-32) Anion Gap 6 (6-14) Blood Urea Nitrogen 36mg/dL (8-26) Creatinine 1.1mg/dL (0.7-1.3) Estimated GFR (Cockcroft-Gault) 68.3 Glucose Level 208mg/dL (70-99) Calcium Level 8.8mg/dL (8.5-10.1) Laboratory Tests Test 07/25/16 11:30 07/26/16 05:30 O2 Saturation 93% (92-99) Arterial Blood pH 7.44 (7.35-7.45) Arterial Blood pCO2 at Patient Temp 48mmHg (35-46) Arterial Blood pO2 at Patient Temp 65mmHg (65-108) Arterial Blood HCO3 32mmol/L (21-28) Arterial Blood Base Excess 6mmol/L (-3-3) FiO2 40 White Blood Count 3.5x10^3/uL (4.0-11.0) Red Blood Count 5.38x10^6/uL (4.30-5.70) Hemoglobin 14.8g/dL (13.0-17.5) Hematocrit 46.9% (39.0-53.0) Mean Corpuscular Volume 87fL (79-100) Mean Corpuscular Hemoglobin 28pg (25-35) Mean Corpuscular Hemoglobin Concent 32g/dL (31-37) Red Cell Distribution Width 15.2% (11.5-14.5) Platelet Count 155x10^3/uL (140-400) Neutrophils (%) (Auto) 83% (31-73) Lymphocytes (%) (Auto) 6% (24-48) Monocytes (%) (Auto) 11% (0-9) Eosinophils (%) (Auto) 0% (0-3) Basophils (%) (Auto) 0% (0-3) Neutrophils # (Auto) 2.9x10^3uL (1.8-7.7) Lymphocytes # (Auto) 0.2x10^3/uL (1.0-4.8) Monocytes # (Auto) 0.4x10^3/uL (0.0-1.1) Eosinophils # (Auto) 0.0x10^3/uL (0.0-0.7) Basophils # (Auto) 0.0x10^3/uL (0.0-0.2) Sodium Level 145mmol/L (136-145) Potassium Level 3.8mmol/L (3.5-5.1) Chloride Level 106mmol/L (98-107) Carbon Dioxide Level 33mmol/L (21-32) Anion Gap 6 (6-14) Blood Urea Nitrogen 36mg/dL (8-26) Creatinine 1.1mg/dL (0.7-1.3) Estimated GFR (Cockcroft-Gault) 68.3 Glucose Level 208mg/dL (70-99) Calcium Level 8.8mg/dL (8.5-10.1) Microbiology 07/18/16 Blood Culture - Final, Complete NO GROWTH AFTER 5 DAYS 07/25/16 Gram Stain - Final, Complete 07/19/16 Anaerobic/Aerobic Culture - Final, Complete 07/19/16 Anaerobic Culture Result 1 (YELITZA) - Final, Complete 07/19/16 Aerobic Culture - Final, Complete 07/19/16 Aerobic Culture Result 1 (YELITZA) - Final, Complete 07/19/16 Aerobic Culture Result 2 (YELITZA) - Final, Complete 07/19/16 Aerobic Culture Result 3 (YELITZA) - Final, Complete 07/19/16 Aerobic Culture Result 4 (YELITZA) - Final, Complete 07/19/16 Antimicrobic Susceptibility - Final, Complete Medications Current Medications Vancomycin HCl 1 each 1 each PRN DAILY PRN PHARMACY TO DOSE Last administered on 07/22/16 17:12; Start 07/18/16 at 09:00; Stop 07/23/16 at 08:51 ; Status DC Sodium Chloride (Iv Sodium Chloride 0.9% 1000ml Bag) 1,000 ml @ 1,000 mls/hr Q1H IV Last administered on 07/18/16 09:49; Start 07/18/16 at 08:54; Stop 04/24 at 09:53; Status DC Sodium Chloride (Normal Saline Flush) 10 ml QSHIFT PRN IV AFTER MEDS AND BLOOD DRAWS Last administered on 07/18/16 09:49; Start 07/18/16 at 09:00 Piperacillin Sod/ Tazobactam Sod (Zosyn Per Pharmacy) 1 each PRN DAILY PRN SEE COMMENTS; Start 07/18/16 at 09:00; Stop 07/23/16 at 08:46; Status DC Morphine Sulfate 5 mg 5 mg 1X ONCE IV Last administered on 07/18/16 09:49; Start 07/18/16 at 09:00; Stop 07/18/16 at 09:20; Status DC Piperacillin Sod/ Tazobactam Sod 3.375 gm/Sodium Chloride 50 ml @ 100 mls/hr 1X ONCE IV Last administered on 07/18/16 09:50; Start 07/18/16 at 10:00; Stop 07/18/16 at 10:29; Status DC Vancomycin HCl/ Sodium Chloride (Iv Sodium Chloride 0.9% 500ml Bag) 500 ml @ 250 mls/hr 1X ONCE IV Last administered on 07/18/16 10:49; Start 07/18/16 at 10:00; Stop 07/18/16 at 11:59; Status DC Morphine Sulfate 4 mg 4 mg PRN Q4HRS PRN IV PAIN Last administered on 10:54; Start 07/18/16 at 09:45; Stop 07/19/16 at 18:33; Status DC Sodium Chloride (Iv Sodium Chloride 0.9% 1000ml Bag) 1,000 ml @ 125 mls/hr Q8H IV Last administered on 07/18/16 10:54; Start 07/18/16 at 09:42; Stop at 09:41; Status DC Albuterol/ Ipratropium 3 ml 3 ml Q6HRS NEB ; Start 07/18/16 at 12:00; Stop 07/18 at 16:06; Status DC Piperacillin Sod/ Tazobactam Sod 3.375 gm/Sodium Chloride 50 ml @ 100 mls/hr Q6HRS IV Last administered on 07/26/16 05:38; Start 07/18/16 at 18:00 Vancomycin HCl/ Sodium Chloride (Iv Sodium Chloride 0.9% 500ml Bag) 500 ml @ 250 mls/hr Q8H IV Last administered on 07/19/16 02:19; Start 07/18/16 at 18:00 ; Stop 07/19/16 at 10:15; Status DC Vancomycin HCl 1 each 1X ONCE MC Last administered on 07/19/16 09:30; Start 07/19/16 at 09:30; Stop 07/19/16 at 09:31; Status DC Gabapentin (Neurontin) 100 mg BID PO Last administered on 07/25/16 21:06; Start 07/18/16 at 21:00 Ibuprofen (Motrin) 400 mg PRN TID PRN PO INFLAMMATION Last administered on 07/21 10:16; Start 07/18/16 at 16:15; Stop 07/21/16 at 17:44; Status DC Albuterol/ Ipratropium (Duoneb) 3 ml QID PRN NEB SHORTNESS OF BREATH; Start 04/24 at 16:15; Stop 07/18/16 at 16:19; Status DC Spironolactone (Aldactone) 25 mg DAILY PO Last administered on 07/25/16 08:27 ; Start 07/18/16 at 17:00 Non-Formulary Medication 2 puff PRN Q6HRS PRN INH SHORTNESS OF BREATH; Start at 16:15; Stop 07/18/16 at 16:18; Status DC Mirtazapine (Remeron) 30 mg QHS PO Last administered on 07/25/16 21:07; Start 07/18/16 at 21:00 Albuterol/ Ipratropium (Duoneb) 3 ml RTQID NEB Last administered on 07/25/16 20:40; Start 07/18/16 at 17:00 Oxycodone/ Acetaminophen (Percocet 5/325) 1 tab PRN Q4HRS PRN PO PAIN Last administered on 07/21/16 21:16; Start 07/18/16 at 16:15 Albuterol Sulfate 2.5 mg 2.5 mg PRN Q6HRS PRN NEB SHORTNESS OF BREATH; Start at 16:15 Vancomycin HCl/ Sodium Chloride (Iv Sodium Chloride 0.9% 250ml) 250 ml @ 250 mls/hr Q12H IV Last administered on 07/22/16 21:06; Start 07/19/16 at 21:00; Stop 07/23/16 at 08:50; Status DC Iodixanol (Visipaque 320) 50 ml STK-MED ONCE .ROUTE ; Start 07/19/16 at 16:28; Stop 07/19/16 at 16:29; Status DC Iohexol (Omnipaque 300 Mg/ml) 100 ml STK-MED ONCE .ROUTE ; Start 07/19/16 at 16: 28; Stop 07/19/16 at 16:29; Status DC Lidocaine/Sodium Bicarbonate 20 ml 20 ml STK-MED ONCE IJ ; Start 07/19/16 at 16: 28; Stop 07/19/16 at 16:29; Status DC Heparin Sodium/ Sodium Chloride 500 ml @ As Directed STK-MED ONCE .ROUTE ; Start 07/19/16 at 16:28; Stop 07/19/16 at 16:29; Status DC Iodixanol (Visipaque 320) 100 ml STK-MED ONCE .ROUTE ; Start 07/19/16 at 16:29; Stop 07/19/16 at 16:30; Status DC Aspirin (Ecotrin) 81 mg DAILYWBKFT PO Last administered on 07/25/16 08:28; Start 07/19/16 at 17:30 Fluconazole (Diflucan) 100 mg DAILY PO Last administered on 07/25/16 08:28; Start 07/19/16 at 18:45 Vancomycin HCl 1 each 1X ONCE MC Last administered on 07/21/16 08:30; Start 07/21/16 at 08:30; Stop 07/21/16 at 08:31; Status DC Morphine Sulfate 1 mg 1 mg PRN Q10MIN PRN IV SEVERE PAIN; Start 07/22/16 at 07: 00; Stop 07/22/16 at 07:00; Status DC Lactated Ringer's (Iv Lactated Ringers) 1,000 ml @ 30 mls/hr Q24H IV ; Start at 07:00; Stop 07/22/16 at 18:59; Status DC Lidocaine HCl 2 ml 1X PRN PRN ID IV START; Start 07/22/16 at 07:00; Stop at 06:59; Status DC Hydromorphone HCl (Dilaudid) 0.5 mg PRN Q10MIN PRN IV SEVERE PAIN, Second choice; Start 07/22/16 at 07:00; Stop 07/22/16 at 07:00; Status DC Prochlorperazine Edisylate (Compazine) 5 mg PACU PRN PRN IV NAUSEA; Start 07/22 at 07:00; Stop 07/23/16 at 06:59; Status DC Lisinopril (Prinivil) 5 mg DAILY PO Last administered on 07/25/16 08:28; Start 07/21/16 at 18:00 Hydromorphone HCl (Dilaudid) 0.5 mg PRN Q2HRS PRN IV SEVERE PAIN Last administered on 07/23/16 05:53; Start 07/21/16 at 18:00 Insulin Aspart (Novolog) 0-5 UNITS TIDWMEALS SQ Last administered on 07/25/16 19:28; Start 07/22/16 at 08:00 Dextrose 12.5 gm PRN Q15MIN PRN IV SEE COMMENTS; Start 07/21/16 at 17:45 Lactobacillus Acidophilus (Bacid, Yessica-Bid) 1 tab TIDWMEALS PO Last administered on 07/25/16 19:21; Start 07/22/16 at 12:00 Furosemide 40 mg 40 mg 1X ONCE IVP ; Start 07/22/16 at 12:00; Stop 07/22/16 at 12:02; Status DC Propofol (Diprivan) 20 ml @ As Directed STK-MED ONCE IV ; Start 07/22/16 at 13: 03; Stop 07/22/16 at 13:04; Status DC Dexamethasone Sodium Phosphate (Decadron) 20 mg STK-MED ONCE .ROUTE ; Start at 13:03; Stop 07/22/16 at 13:04; Status DC Famotidine (Pepcid) 20 mg STK-MED ONCE .ROUTE ; Start 07/22/16 at 13:03; Stop at 13:04; Status DC Ondansetron HCl (Zofran) 4 mg STK-MED ONCE .ROUTE ; Start 07/22/16 at 13:03; Stop 07/22/16 at 13:04; Status DC Lidocaine HCl 100 mg STK-MED ONCE .ROUTE ; Start 07/22/16 at 13:03; Stop at 13:04; Status DC Succinylcholine Chloride (Anectine) 200 mg STK-MED ONCE .ROUTE ; Start 07/22/16 at 13:04; Stop 07/22/16 at 13:05; Status DC Rocuronium [place] (Zemuron) 50 mg STK-MED ONCE .ROUTE ; Start 07/22/16 at 13:04 ; Stop 07/22/16 at 13:05; Status DC Iodixanol (Visipaque 320) 50 ml STK-MED ONCE .ROUTE ; Start 07/22/16 at 13:27; Stop 07/22/16 at 13:28; Status DC Iohexol (Omnipaque 300 Mg/ml) 100 ml STK-MED ONCE .ROUTE ; Start 07/22/16 at 13: 28; Stop 07/22/16 at 13:29; Status DC Lidocaine/Sodium Bicarbonate 20 ml 20 ml STK-MED ONCE IJ ; Start 07/22/16 at 13: 28; Stop 07/22/16 at 13:29; Status DC Heparin Sodium/ Sodium Chloride 1,500 ml @ As Directed STK-MED ONCE .ROUTE ; Start 07/22/16 at 13:28; Stop 07/22/16 at 13:29; Status DC Iodixanol 100 ml 100 ml STK-MED ONCE .ROUTE ; Start 07/22/16 at 13:28; Stop at 13:29; Status DC Propofol (Diprivan) 100 ml @ 16.67 mls/ hr CONT PRN PRN IV SEDATION Last administered on 07/23/16 00:07; Start 07/22/16 at 14:30; Stop 07/23/16 at 02:29 ; Status DC Midazolam HCl (Versed) 2 mg PRN Q10MIN PRN IV ANXIETY / AGITATION; Start at 14:30; Stop 07/23/16 at 14:29; Status DC Heparin Sodium/ Sodium Chloride 1,000 unit 1X ONCE IART Last administered on 14:35; Start 07/22/16 at 14:30; Stop 07/22/16 at 14:31; Status DC Lidocaine/Sodium Bicarbonate (Buffered Lidocaine 1%) 2 ml 1X ONCE IJ Last administered on 07/22/16 14:35; Start 07/22/16 at 14:30; Stop 07/22/16 at 14:31 ; Status DC Iohexol (Omnipaque 300 Mg/ml) 45 ml 1X ONCE IART Last administered on 14:34; Start 07/22/16 at 14:30; Stop 07/22/16 at 14:31; Status DC Iodixanol (Visipaque 320) 77 ml 1X ONCE IART Last administered on 07/22/16 14 :34; Start 07/22/16 at 14:30; Stop 07/22/16 at 14:31; Status DC Info (Do NOT chart on this entry -- for MONITORING) 1 each PRN DAILY PRN MC SEE COMMENTS; Start 07/22/16 at 14:45; Stop 07/24/16 at 14:44; Status DC Fentanyl Citrate (Fentanyl 2ml Vial) 100 mcg STK-MED ONCE .ROUTE ; Start at 15:27; Stop 07/22/16 at 15:28; Status DC Fentanyl Citrate 50 mcg 50 mcg PRN Q5MIN PRN IV Acute Pain Last administered on 07/22/16 15:45; Start 07/22/16 at 15:30; Stop 07/22/16 at 23:00; Status DC Midazolam HCl 100 ml @ As Directed STK-MED ONCE IV ; Start 07/22/16 at 15:46; Stop 07/22/16 at 15:47; Status DC Midazolam HCl 100 ml @ 0 mls/hr CONT PRN IV SEE I/O RECORD; Start 07/22/16 at 16:00 Propofol 100 ml @ As Directed STK-MED ONCE IV ; Start 07/23/16 at 04:06; Stop 07/23/16 at 04:07; Status DC Propofol (Diprivan) 100 ml @ 0 mls/hr CONT PRN IV SEE I/O RECORD Last administered on 07/26/16 05:38; Start 07/23/16 at 04:15 Budesonide (Pulmicort) 0.5 mg RTBID NEB Last administered on 07/25/16 20:40; Start 07/23/16 at 08:00 Methylprednisolone Sodium Succinate (Solu-Medrol 40mg Vial) 40 mg Q8HRS IV Last administered on 07/26/16 05:39; Start 07/23/16 at 10:00 Enoxaparin Sodium (Lovenox 40mg Syringe) 40 mg Q24H SQ Last administered on 12:25; Start 07/24/16 at 10:00 Chlorhexidine Gluconate 15 ml 15 ml BID MM Last administered on 07/25/16 21:08 ; Start 07/25/16 at 09:00 Fentanyl Citrate (Fentanyl 600 Mcg/30 ml PEST CONTROL CHEMICAL TECHNICIAN) 30 ml @ 0 mls/hr CONT PRN IV PROTOCOL Last administered on 07/25/16 23:37; Start 07/25/16 at 09:00 Scopolamine (Transderm-Scop) 1 patch Q3DAYS TD Last administered on 07/25/16 19:22; Start 07/25/16 at 19:00 Multi-Ingred Cream/Lotion/Oil/ Oint (Artificial Tears Eye Oint) 1 kiah PRN Q1HR PRN OU DRY EYE Last administered on 07/26/16 01:40; Start 07/25/16 at 19:15 Active Scripts Active Reported Ventolin Hfa Inhaler (Albuterol Sulfate) 18 Gm Hfa.aer.ad 2 Puff INH PRN Q6HRS PRN Ibuprofen 400 Mg Tablet 400 Mg PO TID PRN Neurontin (Gabapentin) 100 Mg Capsule 100 Mg PO BID Mirtazapine 30 Mg Tablet 1 Tab PO QHS Spironolactone 25 Mg Tablet 1 Tab PO DAILY Duoneb 0.5-3(2.5) Mg/3 Ml (Albuterol/Ipratropium) 3 Ml Ampul.neb 3 Ml NEB QID PRN Vitals/I & O Vital Sign - Last 24 Hours 07/25/16 07/25/16 07/25/16 07/25/16 09:37 10:00 11:00 11:22 Pulse 72 66 Resp 33 15 19 B/P 108/59 136/68 Pulse Ox 97 92 92 93 O2 Delivery Ventilator Ventilator Ventilator Ventilator 07/25/16 07/25/16 07/25/16 07/25/16 12:00 12:00 13:00 13:01 Temp 98.0 98.0 Pulse 56 50 Resp 19 19 B/P 144/85 123/69 Pulse Ox 97 95 93 O2 Delivery Ventilator Mechanical Ventilator Ventilator Ventilator 07/25/16 07/25/16 07/25/16 07/25/16 14:00 15:00 15:15 16:00 Temp 97.9 97.9 Pulse 52 50 48 Resp 16 15 16 16 B/P 115/68 103/55 118/64 Pulse Ox 92 94 93 93 O2 Delivery Ventilator Ventilator Ventilator Ventilator 3/19/17 3/19/17 3/19/17 3/19/17 16:00 16:12 17:00 18:00 Pulse 64 54 Resp 16 16 B/P 116/60 134/71 Pulse Ox 93 93 94 O2 Delivery Mechanical Ventilator Ventilator Ventilator Ventilator 07/25/16 07/25/16 07/25/16 07/25/16 19:00 20:00 20:00 20:41 Temp 98.3 98.3 Pulse 51 50 Resp 16 16 B/P 150/77 151/79 Pulse Ox 93 93 93 O2 Delivery Ventilator Mechanical Ventilator Ventilator O2 Flow Rate 5.0 07/25/16 07/25/16 07/25/16 07/25/16 20:42 21:00 22:00 22:58 Pulse 49 46 Resp 15 16 16 B/P 121/69 139/73 Pulse Ox 93 96 97 93 O2 Delivery Ventilator Ventilator 07/25/16 07/25/16 07/25/16 07/26/16 23:00 23:17 23:37 00:00 Temp 97.9 97.9 97.9 97.9 Pulse 46 46 Resp 16 16 16 B/P 146/81 146/81 Pulse Ox 93 93 93 93 O2 Delivery Ventilator Ventilator Ventilator Ventilator 07/26/16 07/26/16 07/26/16 07/26/16 00:00 00:07 01:00 01:37 Pulse 46 Resp 15 B/P 142/79 Pulse Ox 94 94 93 O2 Delivery Mechanical Ventilator Ventilator Ventilator Ventilator 07/26/16 07/26/16 07/26/16 07/26/16 02:00 03:00 03:53 04:00 Temp 97.6 97.6 Pulse 46 48 46 Resp 17 B/P 134/75 145/83 151/84 Pulse Ox 94 93 93 94 O2 Delivery Ventilator Ventilator Ventilator Ventilator 07/26/16 07/26/16 07/26/16 07/26/16 04:00 05:00 06:00 07:00 Temp 97.6 97.6 Pulse 46 44 48 Resp 16 15 16 B/P 143/83 169/91 142/80 Pulse Ox 96 96 97 O2 Delivery Mechanical Ventilator Ventilator Ventilator Ventilator 07/26/16 07/26/16 08:00 08:00 Temp 96.9 96.9 Pulse 58 Resp 16 B/P 148/78 Pulse Ox 97 O2 Delivery Mechanical Ventilator Ventilator Intake and Output 07/25/16 07/25/16 07/26/16 15:00 23:00 07:00 Intake Total 1140 ml 1464 ml Output Total 1100 ml 1500 ml 695 ml Balance -1100 ml -360 ml 769 ml CHLOÉ CHÁVEZ MD Jul 26, 2016 09:12
[2016-07-26] MEDS: SPIRONOLACTONE 25 MG TABLET PO SCH (09:14)
[2016-07-26] MEDS: DO NOT USE 40 MG/0.4 ML DISP.SYRIN SQ SCH (09:14)
[2016-07-26] MEDS: GABAPENTIN 100 MG CAPSULE. PO SCH ×2 (09:15→20:52)
[2016-07-26] MEDS: LISINOPRIL 5 MG TABLET. PO SCH (09:15)
[2016-07-26] MEDS ORDERED: ONDANSETRON PF 4 MG/2 ML VIAL. IV PRN (09:15)
[2016-07-26] MEDS ORDERED: METOCLOPRAMIDE HCL 10 MG/2 ML VIAL. IV PRN (09:15)
[2016-07-26] MEDS: CHLORHEXIDINE 0.12% 15 ML MOUTHWASH. MM SCH ×2 (09:15→20:52)
[2016-07-26] MEDS ORDERED: ACETAMINOPHEN 650 MG/20.3 ML SOLUTION. PEG PRN (09:15)
[2016-07-26] MEDS: LACTOBACILLUS ACIDOPH & BULGAR 1 TABLET. PO SCH ×3 (09:15→16:49)
[2016-07-26] MEDS: FLUCONAZOLE 100 MG TABLET. PO SCH (09:15)
[2016-07-26] MEDS: INSULIN ASPART 300 UNITS/3 ML INSULN.PEN SQ SCH ×3 (09:19→16:54)
[2016-07-26] MEDS: BUDESONIDE 0.5 MG/2 ML NEBU NEB SCH ×2 (09:25→19:44)
[2016-07-26] MEDS: IPRATRPIUM/ALBUTEROL 0.5/2.5MG 3 ML NEBU. NEB SCH ×4 (09:25→19:44)
[2016-07-26 09:54] LABS: HCO3 ABG 29 mmol/L (21-28); PCO2 ABG 49 mmHg (35-46); PH ABG 7.38 (7.35-7.45); PO2 ABG 75 mmHg (65-108); SAT O2 ABG 94 % (92-99)
[2016-07-26 11:27] LABS: FIO2 ABG 50
--- NOTE | 2016-07-26 13:16 | PDOC ---
PULMONARY PROGRESS NOTES Subjective PT SEDATED Vitals Vital Signs Date Time Temp Pulse Resp B/P Pulse Ox O2 Delivery O2 Flow Rate FiO2 07/26/16 12:17 96 Ventilator 07/26/16 12:00 97.9 67 17 109/59 97.9 07/25/16 20:00 5.0 General: Lethargic HEENT: Other (nc at perrl, nose clear, orally intubated) Lungs: Clear Cardiovascular: S1, S2 Abdomen: Soft Extremities: Other Skin: Warm Labs Laboratory Tests Test 07/24/16 17:16 07/24/16 23:51 07/25/16 11:30 07/26/16 05:30 Glucose (Fingerstick) 183mg/dL (70-99) 189mg/dL (70-99) O2 Saturation 93% (92-99) Arterial Blood pH 7.44 (7.35-7.45) Arterial Blood pCO2 at Patient Temp 48mmHg (35-46) Arterial Blood pO2 at Patient Temp 65mmHg (65-108) Arterial Blood HCO3 32mmol/L (21-28) Arterial Blood Base Excess 6mmol/L (-3-3) FiO2 40 White Blood Count 3.5x10^3/uL (4.0-11.0) Red Blood Count 5.38x10^6/uL (4.30-5.70) Hemoglobin 14.8g/dL (13.0-17.5) Hematocrit 46.9% (39.0-53.0) Mean Corpuscular Volume 87fL (79-100) Mean Corpuscular Hemoglobin 28pg (25-35) Mean Corpuscular Hemoglobin Concent 32g/dL (31-37) Red Cell Distribution Width 15.2% (11.5-14.5) Platelet Count 155x10^3/uL (140-400) Neutrophils (%) (Auto) 83% (31-73) Lymphocytes (%) (Auto) 6% (24-48) Monocytes (%) (Auto) 11% (0-9) Eosinophils (%) (Auto) 0% (0-3) Basophils (%) (Auto) 0% (0-3) Neutrophils # (Auto) 2.9x10^3uL (1.8-7.7) Lymphocytes # (Auto) 0.2x10^3/uL (1.0-4.8) Monocytes # (Auto) 0.4x10^3/uL (0.0-1.1) Eosinophils # (Auto) 0.0x10^3/uL (0.0-0.7) Basophils # (Auto) 0.0x10^3/uL (0.0-0.2) Sodium Level 145mmol/L (136-145) Potassium Level 3.8mmol/L (3.5-5.1) Chloride Level 106mmol/L (98-107) Carbon Dioxide Level 33mmol/L (21-32) Anion Gap 6 (6-14) Blood Urea Nitrogen 36mg/dL (8-26) Creatinine 1.1mg/dL (0.7-1.3) Estimated GFR (Cockcroft-Gault) 68.3 Glucose Level 208mg/dL (70-99) Calcium Level 8.8mg/dL (8.5-10.1) Test 07/26/16 09:25 O2 Saturation 94% (92-99) Arterial Blood pH 7.38 (7.35-7.45) Arterial Blood pCO2 at Patient Temp 49mmHg (35-46) Arterial Blood pO2 at Patient Temp 75mmHg (65-108) Arterial Blood HCO3 29mmol/L (21-28) Arterial Blood Base Excess 3mmol/L (-3-3) FiO2 50 Laboratory Tests Test 07/26/16 05:30 07/26/16 09:25 White Blood Count 3.5x10^3/uL (4.0-11.0) Red Blood Count 5.38x10^6/uL (4.30-5.70) Hemoglobin 14.8g/dL (13.0-17.5) Hematocrit 46.9% (39.0-53.0) Mean Corpuscular Volume 87fL (79-100) Mean Corpuscular Hemoglobin 28pg (25-35) Mean Corpuscular Hemoglobin Concent 32g/dL (31-37) Red Cell Distribution Width 15.2% (11.5-14.5) Platelet Count 155x10^3/uL (140-400) Neutrophils (%) (Auto) 83% (31-73) Lymphocytes (%) (Auto) 6% (24-48) Monocytes (%) (Auto) 11% (0-9) Eosinophils (%) (Auto) 0% (0-3) Basophils (%) (Auto) 0% (0-3) Neutrophils # (Auto) 2.9x10^3uL (1.8-7.7) Lymphocytes # (Auto) 0.2x10^3/uL (1.0-4.8) Monocytes # (Auto) 0.4x10^3/uL (0.0-1.1) Eosinophils # (Auto) 0.0x10^3/uL (0.0-0.7) Basophils # (Auto) 0.0x10^3/uL (0.0-0.2) Sodium Level 145mmol/L (136-145) Potassium Level 3.8mmol/L (3.5-5.1) Chloride Level 106mmol/L (98-107) Carbon Dioxide Level 33mmol/L (21-32) Anion Gap 6 (6-14) Blood Urea Nitrogen 36mg/dL (8-26) Creatinine 1.1mg/dL (0.7-1.3) Estimated GFR (Cockcroft-Gault) 68.3 Glucose Level 208mg/dL (70-99) Calcium Level 8.8mg/dL (8.5-10.1) O2 Saturation 94% (92-99) Arterial Blood pH 7.38 (7.35-7.45) Arterial Blood pCO2 at Patient Temp 49mmHg (35-46) Arterial Blood pO2 at Patient Temp 75mmHg (65-108) Arterial Blood HCO3 29mmol/L (21-28) Arterial Blood Base Excess 3mmol/L (-3-3) FiO2 50 Medications Active Scripts Medications Dose Route/Sig Days Date Category Ventolin Hfa Inhaler (Albuterol Sulfate) 18 Gm Hfa.aer.ad 2 Puff INH PRN Q6HRS PRN 07/18/16 Reported Ibuprofen 400 Mg Tablet 400 Mg PO TID PRN 07/18/16 Reported Neurontin (Gabapentin) 100 Mg Capsule 100 Mg PO BID 07/18/16 Reported Mirtazapine 30 Mg Tablet 1 Tab PO QHS 07/18/16 Reported Spironolactone 25 Mg Tablet 1 Tab PO DAILY 07/18/16 Reported Duoneb 0.5-3(2.5) Mg/3 Ml (Albuterol/Ipratropium) 3 Ml Ampul.neb 3 Ml NEB QID PRN 07/18/16 Reported Comments IMPRESSION: Ongoing congestive heart failure with pulmonary edema and pleural fluid, unchanged since yesterday's study. Impression . 1. Acute on chronic hypoxemic hypercapnic respiratory failure, multifactorial in nature. 2.pulmonary fibrosis. 3. Bilateral lower extremity cellulitis arterial gram no dz 4. Tobacco dependent. 5. Hypertension. 6. Obesity. 7. Significant occupational exposure. The patient worked in the [employer]. 8. Suspect ARNEL/[facility] CT Chest 1. Emphysema. 2. Moderate interlobular septal thickening in the lungs suggesting interstitial edema, although there may be a component of fibrosis. 3. Tiny right pleural effusion. 4. Mild right lower lobe atelectasis and/or pneumonitis. 5. Tiny pericardial effusion. 6. Probable cholelithiasis. Plan . decrease minute ventilation, not ready for wean 02 titration Lasix Continue current antibiotics per ID. Nebulized treatments. add ics solumedrol no change ELISHA DAVILA MD Jul 26, 2016 13:16
[2016-07-26] MEDS: FENTANYL STANDARD PCA 30 ML IV PRN (14:58)
[2016-07-26 16:15] LABS: C ANCA <1:20 titer (Neg:<1:20)
--- NOTE | 2016-07-26 17:47 | PDOC ---
OBJECTIVE Vital Signs Vital Signs Date Time Temp Pulse Resp B/P Pulse Ox O2 Delivery O2 Flow Rate FiO2 07/26/16 16:33 95 Ventilator 07/26/16 16:00 Mechanical Ventilator 07/26/16 16:00 97.7 61 17 115/64 95 Ventilator 97.7 07/26/16 15:28 17 97 Ventilator 07/26/16 15:00 58 17 127/70 97 Ventilator 07/26/16 14:58 17 98 Ventilator 07/26/16 14:25 95 Ventilator 07/26/16 14:00 59 17 104/62 98 Ventilator 07/26/16 13:00 60 17 96/52 98 Ventilator 07/26/16 12:17 96 Ventilator 07/26/16 12:00 Mechanical Ventilator 07/26/16 12:00 97.9 67 17 109/59 95 Ventilator 97.9 07/26/16 11:00 63 17 125/64 95 Ventilator 07/26/16 10:00 55 17 133/70 95 Ventilator 07/26/16 09:25 96 Ventilator 07/26/16 09:15 58 143/75 07/26/16 09:00 72 17 143/75 95 Ventilator 07/26/16 08:00 96.9 58 16 148/78 97 Ventilator 96.9 07/26/16 08:00 Mechanical Ventilator 07/26/16 07:00 48 16 142/80 97 Ventilator 07/26/16 06:00 97.6 44 15 169/91 96 Ventilator 97.6 07/26/16 05:00 46 16 143/83 96 Ventilator 07/26/16 04:00 Mechanical Ventilator 07/26/16 04:00 46 17 151/84 94 Ventilator 07/26/16 03:53 93 Ventilator 07/26/16 03:00 97.6 48 17 145/83 93 Ventilator 97.6 07/26/16 02:00 46 15 134/75 94 Ventilator 07/26/16 01:37 93 Ventilator 07/26/16 01:00 46 142/79 94 Ventilator 07/26/16 00:00 Mechanical Ventilator 07/26/16 00:00 97.9 46 16 146/81 93 Ventilator 97.9 07/25/16 23:37 16 93 Ventilator 07/25/16 23:17 93 Ventilator 07/25/16 23:00 97.9 46 16 146/81 93 Ventilator 97.9 07/25/16 22:58 16 93 3/19/17 22:00 46 16 139/73 97 07/25/16 21:00 49 15 121/69 96 Ventilator 07/25/16 20:42 93 Ventilator 07/25/16 20:41 93 Ventilator 07/25/16 20:00 Mechanical Ventilator 07/25/16 20:00 50 16 151/79 93 Ventilator 5.0 07/25/16 19:00 98.3 51 16 150/77 93 98.3 07/25/16 18:00 54 16 134/71 94 Ventilator I & O Intake and Output 07/26/16 07:00 Intake Total 2604 ml Output Total 3295 ml Balance -691 ml IV Total 569 ml Tube Feeding 798 ml Blood Product IV Normal Saline Flush 500 ml Other 737 ml Output Urine Total 3295 ml # Bowel Movements 1 ASSESSMENT/PLAN Assessment/Plan I didn't receive consultation. Please reconsult if desired. Problems: COMMENT Lab Laboratory Tests Test 07/26/16 05:30 07/26/16 09:25 White Blood Count 3.5x10^3/uL (4.0-11.0) Red Blood Count 5.38x10^6/uL (4.30-5.70) Hemoglobin 14.8g/dL (13.0-17.5) Hematocrit 46.9% (39.0-53.0) Mean Corpuscular Volume 87fL (79-100) Mean Corpuscular Hemoglobin 28pg (25-35) Mean Corpuscular Hemoglobin Concent 32g/dL (31-37) Red Cell Distribution Width 15.2% (11.5-14.5) Platelet Count 155x10^3/uL (140-400) Neutrophils (%) (Auto) 83% (31-73) Lymphocytes (%) (Auto) 6% (24-48) Monocytes (%) (Auto) 11% (0-9) Eosinophils (%) (Auto) 0% (0-3) Basophils (%) (Auto) 0% (0-3) Neutrophils # (Auto) 2.9x10^3uL (1.8-7.7) Lymphocytes # (Auto) 0.2x10^3/uL (1.0-4.8) Monocytes # (Auto) 0.4x10^3/uL (0.0-1.1) Eosinophils # (Auto) 0.0x10^3/uL (0.0-0.7) Basophils # (Auto) 0.0x10^3/uL (0.0-0.2) Sodium Level 145mmol/L (136-145) Potassium Level 3.8mmol/L (3.5-5.1) Chloride Level 106mmol/L (98-107) Carbon Dioxide Level 33mmol/L (21-32) Anion Gap 6 (6-14) Blood Urea Nitrogen 36mg/dL (8-26) Creatinine 1.1mg/dL (0.7-1.3) Estimated GFR (Cockcroft-Gault) 68.3 Glucose Level 208mg/dL (70-99) Calcium Level 8.8mg/dL (8.5-10.1) O2 Saturation 94% (92-99) Arterial Blood pH 7.38 (7.35-7.45) Arterial Blood pCO2 at Patient Temp 49mmHg (35-46) Arterial Blood pO2 at Patient Temp 75mmHg (65-108) Arterial Blood HCO3 29mmol/L (21-28) Arterial Blood Base Excess 3mmol/L (-3-3) FiO2 50 MOODY GELLER MD Jul 26, 2016 17:47
[2016-07-26] MEDS: MIRTAZAPINE 15 MG TABLET PO SCH (20:52)
[2016-07-27] VITALS (24 sets, daily range): BP systolic 93–181; BP diastolic 52–84
[2016-07-27] MEDS: PIPERACILLIN/TAZOBACTAM 3.375 GM in IV NORMAL SALINE 50ML 50 ML IV SCH ×4 (00:19→17:45)
[2016-07-27] MEDS: INSULIN ASPART 300 UNITS/3 ML INSULN.PEN SQ SCH ×5 (00:29→21:00)
[2016-07-27] MEDS: PROPOFOL 100 ML IV PRN ×2 (01:12→05:46)
[2016-07-27] MEDS: methylPREDNISolone SOD SUCC PF 40 MG/ML VIAL. IV SCH (05:45)
[2016-07-27] MEDS: ASPIRIN ENTERIC COATED 81 MG TABLET.DR. PO SCH (08:00)
[2016-07-27] MEDS: IPRATRPIUM/ALBUTEROL 0.5/2.5MG 3 ML NEBU. NEB SCH ×4 (08:03→19:49)
[2016-07-27] MEDS: BUDESONIDE 0.5 MG/2 ML NEBU NEB SCH (08:03)
[2016-07-27 08:33] LABS: CREATININE 1.2 mg/dL (0.7-1.3); GFR 61.8; POTASSIUM 4.5 mmol/L (3.5-5.1)
[2016-07-27 08:44] LABS: HEMATOCRIT 46.5 % (39.0-53.0); HEMOGLOBIN 14.5 g/dL (13.0-17.5); RED BLOOD COUNT 5.24 x10^6/uL (4.30-5.70); RED CELL DISTRIBUTION WIDTH 15.4 % (11.5-14.5); WHITE BLOOD COUNT 4.5 x10^3/uL (4.0-11.0)
--- NOTE | 2016-07-27 08:57 | PDOC ---
Infectious Disease Note Subjective Subjective Sedated. Remains intubated. FiO2 40%. Failed weaning attempts No fever last 24 hours No diarrhea reported ROS ROS unable to do Vital Sign Vital Signs Vital Signs Date Time Temp Pulse Resp B/P Pulse Ox O2 Delivery O2 Flow Rate FiO2 07/27/16 08:04 94 Ventilator 07/27/16 06:00 94 15 99/52 07/27/16 04:00 97.9 97.9 Physical Exam PHYSICAL EXAM GENERAL: NAD, Alert on vent HEENT: PERRL, OC/OP NECK: Supple, no JVD, no LN LUNGS: Clear HEART: S1S2, no gallop, no murmur ABD: Soft, NT, no organomegaly, no rebound EXT: No edema, no cyanosis CARVER HAND: Alert, on vent SKIN: No rash IV: ok Labs Lab Laboratory Tests Test 07/26/16 09:25 07/27/16 08:16 O2 Saturation 94% (92-99) Arterial Blood pH 7.38 (7.35-7.45) Arterial Blood pCO2 at Patient Temp 49mmHg (35-46) Arterial Blood pO2 at Patient Temp 75mmHg (65-108) Arterial Blood HCO3 29mmol/L (21-28) Arterial Blood Base Excess 3mmol/L (-3-3) FiO2 50 Sodium Level 143mmol/L (136-145) Potassium Level 4.5mmol/L (3.5-5.1) Chloride Level 103mmol/L (98-107) Carbon Dioxide Level 35mmol/L (21-32) Anion Gap 5 (6-14) Blood Urea Nitrogen 47mg/dL (8-26) Creatinine 1.2mg/dL (0.7-1.3) Estimated GFR (Cockcroft-Gault) 61.8 Glucose Level 210mg/dL (70-99) Calcium Level 9.0mg/dL (8.5-10.1) Objective Assessment LE Cellulitis. MSSA, PSA, Proteus, improved PAD - aortogram clean JONATHAN Hyperglycemia Tinea Pre-diabetes, HbA1c 6.0 MRSA screen positive Respiratory failure Plan Plan of Care Continue Zosyn and fluconazole Cont Probiotics Monitor labs TAHMINA GOEL MD Jul 27, 2016 08:56
[2016-07-27] MEDS: FLUCONAZOLE 100 MG TABLET. PO SCH (09:03)
[2016-07-27] MEDS: LACTOBACILLUS ACIDOPH & BULGAR 1 TABLET. PO SCH ×3 (09:04→17:00)
[2016-07-27] MEDS: SPIRONOLACTONE 25 MG TABLET PO SCH (09:04)
[2016-07-27] MEDS: LISINOPRIL 5 MG TABLET. PO SCH (09:04)
[2016-07-27] MEDS: GABAPENTIN 100 MG CAPSULE. PO SCH ×2 (09:04→19:52)
[2016-07-27] MEDS: CHLORHEXIDINE 0.12% 15 ML MOUTHWASH. MM SCH (09:05)
[2016-07-27] MEDS: DO NOT USE 40 MG/0.4 ML DISP.SYRIN SQ SCH (09:16)
--- NOTE | 2016-07-27 09:24 | RAD ---
Portable chest, 07/27/2016: History: Intubation, infiltrates Comparison is made to yesterday's study. The tip of the ET tube lies approximately 3 cm above the nba. An NG tube extends into the stomach. The heart is enlarged. The pulmonary vascularity is congested and there are moderate ongoing infiltrates predominantly in the lung bases with probable associated pleural fluid. Similar findings were present on yesterday's study. No new abnormality is detected. An old left humeral fracture is again noted. IMPRESSION: No significant change since yesterday's exam.
--- NOTE | 2016-07-27 09:32 | PDOC ---
PROGRESS NOTES Chief Complaint Chief Complaint Cellulitis ASSESSMENT AND PLAN: 1. LE cellulitis: on Abx. ID following 2. PVD: art US with occlusive dz. 3. Hypoxic, hypercarbic respir status w/o distress: suspect chronic, COPD, with ongoing tobacco abuse. supplemental O2, nebs. CT chest with emphysema , interstitial thickening (edema vs fibrosis). intubated for procedure. vent management as per Pulm 4. Hypotension: resolved. prob 2/2 sedatives. 5. HTN: lisinopril restartd with good BP control 6. DM: borderline; HgbA1c sl elevated, but too low to start meds. monitor w / ISS. diabetic diet, nutritional consult 7. Psych: unclear hx (?depression), but on mirtazapine. cont home med. 8. Thrombocytopenia: stable in triple-digit lowish range. 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 monitor 9. Reynaud's syndrome/ leg discoloration: ?vasculitis. ANABELA/ANCA serologies neg, cryoglob pending 10. Prophylaxis: sq heparin for now; hold prior to interventions. PPI 11. Tobacco use: <1/2 ppd now, with >100 p/y hx. Vitals Vitals Vital Signs Date Time Temp Pulse Resp B/P Pulse Ox O2 Delivery O2 Flow Rate FiO2 07/27/16 09:04 101 156/80 07/27/16 08:04 94 Ventilator 07/27/16 06:00 15 07/27/16 04:00 97.9 97.9 Physical Exam General: Other (intubated, sadated) Heart: Regular rate Lungs: Clear Abdomen: Normal bowel sounds, No tenderness, Other (Rounded and somewhat protruding. Patient states this is normal for him.) Extremities: No clubbing, Other (deep purple discoloration from bilat dorsi of feet to almost knees. open wounds covered with gauze.) Skin: Other (very dry, superficial blistering on LE ) Labs LABS Laboratory Tests Test 07/27/16 08:16 White Blood Count 4.5x10^3/uL (4.0-11.0) Red Blood Count 5.24x10^6/uL (4.30-5.70) Hemoglobin 14.5g/dL (13.0-17.5) Hematocrit 46.5% (39.0-53.0) Mean Corpuscular Volume 89fL (79-100) Mean Corpuscular Hemoglobin 28pg (25-35) Mean Corpuscular Hemoglobin Concent 31g/dL (31-37) Red Cell Distribution Width 15.4% (11.5-14.5) Platelet Count 148x10^3/uL (140-400) Sodium Level 143mmol/L (136-145) Potassium Level 4.5mmol/L (3.5-5.1) Chloride Level 103mmol/L (98-107) Carbon Dioxide Level 35mmol/L (21-32) Anion Gap 5 (6-14) Blood Urea Nitrogen 47mg/dL (8-26) Creatinine 1.2mg/dL (0.7-1.3) Estimated GFR (Cockcroft-Gault) 61.8 Glucose Level 210mg/dL (70-99) Calcium Level 9.0mg/dL (8.5-10.1) Review of Systems Review of Systems intubed, mildly sedated IWONA GUZMAN MD Jul 27, 2016 09:31
--- NOTE | 2016-07-27 10:38 | PDOC ---
PULMONARY PROGRESS NOTES Subjective PT SEEN ON TRAIL AWAKE AND FOLLOWING COMMANDS Vitals Vital Signs Date Time Temp Pulse Resp B/P Pulse Ox O2 Delivery O2 Flow Rate FiO2 07/27/16 10:00 83 20 181/84 97 07/27/16 09:00 Ventilator 07/27/16 07:00 98.0 98.0 General: Alert Lungs: Clear Cardiovascular: S1, S2 Abdomen: Soft Neuro Exam: Alert Extremities: Other Skin: Warm Labs Laboratory Tests Test 07/25/16 11:30 07/26/16 05:30 07/26/16 09:25 07/27/16 08:16 O2 Saturation 93% (92-99) 94% (92-99) Arterial Blood pH 7.44 (7.35-7.45) 7.38 (7.35-7.45) Arterial Blood pCO2 at Patient Temp 48mmHg (35-46) 49mmHg (35-46) Arterial Blood pO2 at Patient Temp 65mmHg (65-108) 75mmHg (65-108) Arterial Blood HCO3 32mmol/L (21-28) 29mmol/L (21-28) Arterial Blood Base Excess 6mmol/L (-3-3) 3mmol/L (-3-3) FiO2 40 50 White Blood Count 3.5x10^3/uL (4.0-11.0) 4.5x10^3/uL (4.0-11.0) Red Blood Count 5.38x10^6/uL (4.30-5.70) 5.24x10^6/uL (4.30-5.70) Hemoglobin 14.8g/dL (13.0-17.5) 14.5g/dL (13.0-17.5) Hematocrit 46.9% (39.0-53.0) 46.5% (39.0-53.0) Mean Corpuscular Volume 87fL (79-100) 89fL (79-100) Mean Corpuscular Hemoglobin 28pg (25-35) 28pg (25-35) Mean Corpuscular Hemoglobin Concent 32g/dL (31-37) 31g/dL (31-37) Red Cell Distribution Width 15.2% (11.5-14.5) 15.4% (11.5-14.5) Platelet Count 155x10^3/uL (140-400) 148x10^3/uL (140-400) Neutrophils (%) (Auto) 83% (31-73) Lymphocytes (%) (Auto) 6% (24-48) Monocytes (%) (Auto) 11% (0-9) Eosinophils (%) (Auto) 0% (0-3) Basophils (%) (Auto) 0% (0-3) Neutrophils # (Auto) 2.9x10^3uL (1.8-7.7) Lymphocytes # (Auto) 0.2x10^3/uL (1.0-4.8) Monocytes # (Auto) 0.4x10^3/uL (0.0-1.1) Eosinophils # (Auto) 0.0x10^3/uL (0.0-0.7) Basophils # (Auto) 0.0x10^3/uL (0.0-0.2) Sodium Level 145mmol/L (136-145) 143mmol/L (136-145) Potassium Level 3.8mmol/L (3.5-5.1) 4.5mmol/L (3.5-5.1) Chloride Level 106mmol/L (98-107) 103mmol/L (98-107) Carbon Dioxide Level 33mmol/L (21-32) 35mmol/L (21-32) Anion Gap 6 (6-14) 5 (6-14) Blood Urea Nitrogen 36mg/dL (8-26) 47mg/dL (8-26) Creatinine 1.1mg/dL (0.7-1.3) 1.2mg/dL (0.7-1.3) Estimated GFR (Cockcroft-Gault) 68.3 61.8 Glucose Level 208mg/dL (70-99) 210mg/dL (70-99) Calcium Level 8.8mg/dL (8.5-10.1) 9.0mg/dL (8.5-10.1) Laboratory Tests Test 07/27/16 08:16 White Blood Count 4.5x10^3/uL (4.0-11.0) Red Blood Count 5.24x10^6/uL (4.30-5.70) Hemoglobin 14.5g/dL (13.0-17.5) Hematocrit 46.5% (39.0-53.0) Mean Corpuscular Volume 89fL (79-100) Mean Corpuscular Hemoglobin 28pg (25-35) Mean Corpuscular Hemoglobin Concent 31g/dL (31-37) Red Cell Distribution Width 15.4% (11.5-14.5) Platelet Count 148x10^3/uL (140-400) Sodium Level 143mmol/L (136-145) Potassium Level 4.5mmol/L (3.5-5.1) Chloride Level 103mmol/L (98-107) Carbon Dioxide Level 35mmol/L (21-32) Anion Gap 5 (6-14) Blood Urea Nitrogen 47mg/dL (8-26) Creatinine 1.2mg/dL (0.7-1.3) Estimated GFR (Cockcroft-Gault) 61.8 Glucose Level 210mg/dL (70-99) Calcium Level 9.0mg/dL (8.5-10.1) Medications Active Scripts Medications Dose Route/Sig Days Date Category Ventolin Hfa Inhaler (Albuterol Sulfate) 18 Gm Hfa.aer.ad 2 Puff INH PRN Q6HRS PRN 07/18/16 Reported Ibuprofen 400 Mg Tablet 400 Mg PO TID PRN 07/18/16 Reported Neurontin (Gabapentin) 100 Mg Capsule 100 Mg PO BID 07/18/16 Reported Mirtazapine 30 Mg Tablet 1 Tab PO QHS 07/18/16 Reported Spironolactone 25 Mg Tablet 1 Tab PO DAILY 07/18/16 Reported Duoneb 0.5-3(2.5) Mg/3 Ml (Albuterol/Ipratropium) 3 Ml Ampul.neb 3 Ml NEB QID PRN 07/18/16 Reported Comments Impression . 1. Acute on chronic hypoxemic hypercapnic respiratory failure, multifactorial in nature. 2. pulmonary fibrosis. 3. Bilateral lower extremity cellulitis arterial gram no dz 4. Tobacco dependent. 5. Hypertension. 6. Obesity. 7. Significant occupational exposure. The patient worked in the [employer]. 8. Suspect ARNEL/OHS 9. Possible pulmonary edema, suspect Acute Cor pulmonale CT Chest 1. Emphysema. 2. Moderate interlobular septal thickening in the lungs suggesting interstitial edema, although there may be a component of fibrosis. 3. Tiny right pleural effusion. 4. Mild right lower lobe atelectasis and/or pneumonitis. 5. Tiny pericardial effusion. 6. Probable cholelithiasis. Plan . ABG noted on trial will extubate, PRN BIPAP d/w RT and RN 02 titration Lasix Continue current antibiotics per ID. Nebulized treatments. add ics solumedrol decreased CCT 30 min d/w brother ELISHA DAVILA MD Jul 27, 2016 10:38
[2016-07-27 11:03] LABS: HCO3 ABG 34 mmol/L (21-28); PO2 ABG 78 mmHg (65-108); SAT O2 ABG 95 % (92-99)
[2016-07-27 12:52] LABS: PCO2 ABG 61 mmHg (35-46)
[2016-07-27 12:53] LABS: PH ABG 7.36 (7.35-7.45)
[2016-07-27] MEDS: FUROSEMIDE 40 MG/4 ML VIAL IVP SCH (15:12)
[2016-07-27] MEDS: MIRTAZAPINE 15 MG TABLET PO SCH (19:52)
[2016-07-28] VITALS (19 sets, daily range): BP systolic 111–146; BP diastolic 64–75
[2016-07-28] MEDS: PIPERACILLIN/TAZOBACTAM 3.375 GM in IV NORMAL SALINE 50ML 50 ML IV SCH ×4 (00:47→18:00)
[2016-07-28] MEDS: CHLORHEXIDINE 0.12% 15 ML MOUTHWASH. MM SCH ×2 (00:47→07:40)
[2016-07-28] MEDS: INSULIN ASPART 300 UNITS/3 ML INSULN.PEN SQ SCH ×4 (07:30→21:00)
[2016-07-28] MEDS: methylPREDNISolone SOD SUCC PF 40 MG/ML VIAL. IV SCH (07:39)
[2016-07-28] MEDS: FUROSEMIDE 40 MG/4 ML VIAL IVP SCH (07:39)
[2016-07-28] MEDS: SCOPOLAMINE 1.5MG PATCH. TD SCH (07:40)
[2016-07-28] MEDS: DO NOT USE 40 MG/0.4 ML DISP.SYRIN SQ SCH (07:40)
[2016-07-28] MEDS: ASPIRIN ENTERIC COATED 81 MG TABLET.DR. PO SCH (08:00)
[2016-07-28] MEDS: LACTOBACILLUS ACIDOPH & BULGAR 1 TABLET. PO SCH ×3 (08:00→17:26)
--- NOTE | 2016-07-28 08:25 | PDOC ---
Infectious Disease Note Subjective Subjective extubated , awake, says is ok ROS ROS GEN: Denies fevers, chills, sweats HEENT: Denies blurred vision, sore throat CV: Denies chest pain RESP: Denies shortness of air, cough GI: Denies n/v/d NEURO: Denies confusion, dizziness Vital Sign Vital Signs Vital Signs Date Time Temp Pulse Resp B/P Pulse Ox O2 Delivery O2 Flow Rate FiO2 07/28/16 06:00 62 20 140/75 100 Nasal Cannula 4.0 07/28/16 04:00 98.0 98.0 Physical Exam PHYSICAL EXAM GENERAL: NAD, Alert HEENT: PERRL, OC/OP NECK: Supple, no JVD, no LN LUNGS: Clear HEART: S1S2, no gallop, no murmur ABD: Soft, NT, no organomegaly, no rebound EXT: No edema, no cyanosis,, rash ++ CLIMBING GUIDE: Alert, oriented x 3, no focal neurologic deficit SKIN: left leg wounds IV: ok Labs Lab Laboratory Tests Test 07/27/16 11:02 07/27/16 17:12 07/28/16 00:50 07/28/16 07:36 Glucose (Fingerstick) 161mg/dL (70-99) 149mg/dL (70-99) 87mg/dL (70-99) 89mg/dL (70-99) Objective Assessment LE Cellulitis. MSSA, PSA, Proteus, improved PAD - aortogram clean JONATHAN Hyperglycemia Tinea Pre-diabetes, HbA1c 6.0 MRSA screen positive Respiratory failure Plan Plan of Care Continue Zosyn and fluconazole Cont Probiotics Monitor labs TAHMINA GOEL MD Jul 28, 2016 08:25
[2016-07-28] MEDS: IPRATRPIUM/ALBUTEROL 0.5/2.5MG 3 ML NEBU. NEB SCH ×4 (08:47→20:10)
[2016-07-28] MEDS: FLUCONAZOLE 100 MG TABLET. PO SCH (09:00)
[2016-07-28] MEDS: LISINOPRIL 5 MG TABLET. PO SCH (09:00)
[2016-07-28] MEDS: GABAPENTIN 100 MG CAPSULE. PO SCH ×2 (09:00→21:56)
[2016-07-28] MEDS: SPIRONOLACTONE 25 MG TABLET PO SCH (09:00)
--- NOTE | 2016-07-28 09:36 | PDOC ---
PULMONARY PROGRESS NOTES Subjective OFF VENT 07/27 NO RESP COMPLAINTS Vitals Vital Signs Date Time Temp Pulse Resp B/P Pulse Ox O2 Delivery O2 Flow Rate FiO2 07/28/16 08:47 96 Nasal Cannula 6.0 07/28/16 06:00 62 20 140/75 07/28/16 04:00 98.0 98.0 General: Alert Lungs: Clear Cardiovascular: S1, S2 Abdomen: Soft Neuro Exam: Alert Extremities: Other Skin: Warm Labs Laboratory Tests Test 07/26/16 11:55 07/26/16 16:51 07/27/16 00:18 07/27/16 08:00 Glucose (Fingerstick) 196mg/dL (70-99) 169mg/dL (70-99) 180mg/dL (70-99) O2 Saturation 95% (92-99) Arterial Blood pH 7.36 (7.35-7.45) Arterial Blood pCO2 at Patient Temp 61mmHg (35-46) Arterial Blood pO2 at Patient Temp 78mmHg (65-108) Arterial Blood HCO3 34mmol/L (21-28) Arterial Blood Base Excess 6mmol/L (-3-3) Test 07/27/16 08:05 07/27/16 08:16 07/27/16 11:02 07/27/16 17:12 Glucose (Fingerstick) 187mg/dL (70-99) 161mg/dL (70-99) 149mg/dL (70-99) White Blood Count 4.5x10^3/uL (4.0-11.0) Red Blood Count 5.24x10^6/uL (4.30-5.70) Hemoglobin 14.5g/dL (13.0-17.5) Hematocrit 46.5% (39.0-53.0) Mean Corpuscular Volume 89fL (79-100) Mean Corpuscular Hemoglobin 28pg (25-35) Mean Corpuscular Hemoglobin Concent 31g/dL (31-37) Red Cell Distribution Width 15.4% (11.5-14.5) Platelet Count 148x10^3/uL (140-400) Sodium Level 143mmol/L (136-145) Potassium Level 4.5mmol/L (3.5-5.1) Chloride Level 103mmol/L (98-107) Carbon Dioxide Level 35mmol/L (21-32) Anion Gap 5 (6-14) Blood Urea Nitrogen 47mg/dL (8-26) Creatinine 1.2mg/dL (0.7-1.3) Estimated GFR (Cockcroft-Gault) 61.8 Glucose Level 210mg/dL (70-99) Calcium Level 9.0mg/dL (8.5-10.1) Test 07/28/16 00:50 07/28/16 07:36 Glucose (Fingerstick) 87mg/dL (70-99) 89mg/dL (70-99) Laboratory Tests Test 07/27/16 11:02 07/27/16 17:12 07/28/16 00:50 07/28/16 07:36 Glucose (Fingerstick) 161mg/dL (70-99) 149mg/dL (70-99) 87mg/dL (70-99) 89mg/dL (70-99) Medications Active Scripts Medications Dose Route/Sig Days Date Category Ventolin Hfa Inhaler (Albuterol Sulfate) 18 Gm Hfa.aer.ad 2 Puff INH PRN Q6HRS PRN 07/18/16 Reported Ibuprofen 400 Mg Tablet 400 Mg PO TID PRN 07/18/16 Reported Neurontin (Gabapentin) 100 Mg Capsule 100 Mg PO BID 07/18/16 Reported Mirtazapine 30 Mg Tablet 1 Tab PO QHS 07/18/16 Reported Spironolactone 25 Mg Tablet 1 Tab PO DAILY 07/18/16 Reported Duoneb 0.5-3(2.5) Mg/3 Ml (Albuterol/Ipratropium) 3 Ml Ampul.neb 3 Ml NEB QID PRN 07/18/16 Reported Comments Impression . 1. Acute on chronic hypoxemic hypercapnic respiratory failure, multifactorial in nature. EXTUBATED 07/27 2. pulmonary fibrosis. 3. Bilateral lower extremity cellulitis arterial gram no dz 4. Tobacco dependent. 5. Hypertension. 6. Obesity. 7. Significant occupational exposure. The patient worked in the [employer]. 8. Suspect ARNEL/OHS 9. Possible pulmonary edema, suspect Acute Cor pulmonale 10. Dysphagia CT Chest 1. Emphysema. 2. Moderate interlobular septal thickening in the lungs suggesting interstitial edema, although there may be a component of fibrosis. 3. Tiny right pleural effusion. 4. Mild right lower lobe atelectasis and/or pneumonitis. 5. Tiny pericardial effusion. 6. Probable cholelithiasis. Plan . ABG noted Pt a chronic retainer maintain co2 close to 60 02 titration Lasix Continue current antibiotics per ID. Nebulized treatments decrease steroids start tube feeding ELISHA DAVILA MD Jul 28, 2016 09:36
[2016-07-28 09:39] LABS: HCO3 ABG 39 mmol/L (21-28); PCO2 ABG 58 mmHg (35-46); PH ABG 7.44 (7.35-7.45); PO2 ABG 66 mmHg (65-108); SAT O2 ABG 93 % (92-99)
--- NOTE | 2016-07-28 10:41 | PDOC ---
PROGRESS NOTES Chief Complaint Chief Complaint Cellulitis ASSESSMENT AND PLAN: 1. LE cellulitis: on Abx. ID following 2. PVD: art US with occlusive dz. 3. Hypoxic, hypercarbic respir status w/o distress: suspect chronic, COPD, with ongoing tobacco abuse. supplemental O2, nebs. CT chest with emphysema , interstitial thickening (edema vs fibrosis). successfully extubated 07/27 4. Hypotension: resolved. prob 2/2 sedatives. 5. HTN: lisinopril restartd with good BP control 6. DM: borderline; HgbA1c sl elevated, but too low to start meds. monitor w / ISS. diabetic diet, nutritional consult 7. Psych: unclear hx (?depression), but on mirtazapine. cont home med. 8. Thrombocytopenia: stable in triple-digit lowish range. 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 monitor 9. Reynaud's syndrome/ leg discoloration: ?vasculitis. ANABELA/ANCA serologies neg, cryoglob pending. Dr Woo re-consulted 10. Prophylaxis: sq heparin for now; hold prior to interventions. PPI 11. Tobacco use: <1/2 ppd prior to admit, with >100 p/y hx. Vitals Vitals Vital Signs Date Time Temp Pulse Resp B/P Pulse Ox O2 Delivery O2 Flow Rate FiO2 07/28/16 08:47 96 Nasal Cannula 6.0 07/28/16 06:00 62 20 140/75 07/28/16 04:00 98.0 98.0 Physical Exam General: Alert Heart: Regular rate Lungs: Clear Abdomen: Normal bowel sounds, No tenderness, Other (Rounded and somewhat protruding. Patient states this is normal for him.) Extremities: No clubbing, Other (deep purple discoloration from bilat dorsi of feet to almost knees. open wounds covered with gauze.) Skin: Other (chronic venous stasis changes) Labs LABS Laboratory Tests Test 07/27/16 11:02 07/27/16 17:12 07/28/16 00:50 07/28/16 07:36 Glucose (Fingerstick) 161mg/dL (70-99) 149mg/dL (70-99) 87mg/dL (70-99) 89mg/dL (70-99) Test 07/28/16 09:30 O2 Saturation 93% (92-99) Arterial Blood pH 7.44 (7.35-7.45) Arterial Blood pCO2 at Patient Temp 58mmHg (35-46) Arterial Blood pO2 at Patient Temp 66mmHg (65-108) Arterial Blood HCO3 39mmol/L (21-28) Arterial Blood Base Excess 12mmol/L (-3-3) FiO2 6 lpm nc Review of Systems Review of Systems thirsty, requesting water. pain on toes IWONA GUZMAN MD Jul 28, 2016 10:41
--- NOTE | 2016-07-28 13:31 | RAD ---
KUB compared to similar study dated 07/24/2016 for NG tube placement. Findings: An enteric tube is seen with distal tip in the lumen of the stomach. Abdominal bowel gas pattern is stable and nonspecific. Impression: 1. NG tube with distal tip in the lumen of the stomach.
[2016-07-28] MEDS: MIRTAZAPINE 15 MG TABLET PO SCH (21:56)
[2016-07-29] MEDS: PIPERACILLIN/TAZOBACTAM 3.375 GM in IV NORMAL SALINE 50ML 50 ML IV SCH ×4 (00:21→18:23)
[2016-07-29 03:48] VITALS: BP 121/64
[2016-07-29 07:00] VITALS: BP 115/63
[2016-07-29] MEDS: INSULIN ASPART 300 UNITS/3 ML INSULN.PEN SQ SCH ×4 (07:30→20:55)
[2016-07-29] MEDS: IPRATRPIUM/ALBUTEROL 0.5/2.5MG 3 ML NEBU. NEB SCH ×4 (07:51→20:35)
--- NOTE | 2016-07-29 08:40 | PDOC ---
SUBJECTIVE Subjective patient semi asleep, noncommunicative OBJECTIVE Objective legs and feet wrapped in dressings and sheepskin. definite malodor. erythema bilaterally with xerosis and desquamation. no significant edema. feet rather neglected with probably tinea infection. Vital Signs Vital Signs Date Time Temp Pulse Resp B/P Pulse Ox O2 Delivery O2 Flow Rate FiO2 07/29/16 07:53 92 Nasal Cannula 6.0 07/29/16 07:00 98.7 62 20 115/63 90 Nasal Cannula 6.0 98.7 07/29/16 03:48 97.6 71 18 121/64 89 Nasal Cannula 6.0 97.6 07/28/16 22:34 97.6 67 18 121/71 92 Nasal Cannula 5.0 97.6 07/28/16 21:00 Nasal Cannula 5.0 07/28/16 20:12 94 Nasal Cannula 6.0 07/28/16 19:16 98.3 71 18 115/68 92 Room Air 98.3 07/28/16 17:14 Nasal Cannula 6.0 07/28/16 16:00 98.5 65 22 122/74 94 Nasal Cannula 6.0 98.5 07/28/16 15:00 72 17 112/73 92 Nasal Cannula 6.0 07/28/16 14:00 70 20 120/69 93 Nasal Cannula 6.0 07/28/16 13:00 70 16 132/70 93 Nasal Cannula 6.0 07/28/16 12:30 95 Nasal Cannula 6.0 07/28/16 12:00 Nasal Cannula 6.0 07/28/16 12:00 98.2 70 16 138/75 93 Nasal Cannula 6.0 98.2 07/28/16 11:00 64 16 111/74 95 Nasal Cannula 6.0 07/28/16 10:00 68 18 124/69 95 Nasal Cannula 6.0 07/28/16 09:00 66 17 114/66 95 Nasal Cannula 6.0 07/28/16 08:47 96 Nasal Cannula 6.0 I & O Intake and Output 07/29/16 07:00 Intake Total 2270 ml Output Total 3250 ml Balance -980 ml Intake Oral 0 ml Tube Feeding 2270 ml Output Urine Total 3250 ml PHYSICAL EXAM Physical Exam as above ASSESSMENT/PLAN Assessment/Plan resolving bilateral cellulitis. possible underlying venous disease. bilateral tinea pedis/nails most likely. history of respiratory failure requiring intubation.. suggest cleansing legs cleanser/water daily. pat dry. Eucerin cream or similar 1-2 times a day. Antifungal cream to feet and toe webs daily (eg. clotrimazole or ketoconazole or lamisil) I don't see where skin biopsy helpful at this time. call me for reconsult Problems: COMMENT Lab Laboratory Tests Test 07/28/16 09:30 07/28/16 12:48 07/28/16 16:41 07/28/16 21:34 O2 Saturation 93% (92-99) Arterial Blood pH 7.44 (7.35-7.45) Arterial Blood pCO2 at Patient Temp 58mmHg (35-46) Arterial Blood pO2 at Patient Temp 66mmHg (65-108) Arterial Blood HCO3 39mmol/L (21-28) Arterial Blood Base Excess 12mmol/L (-3-3) FiO2 6 lpm nc Glucose (Fingerstick) 162mg/dL (70-99) 141mg/dL (70-99) 128mg/dL (70-99) Test 07/29/16 07:39 Glucose (Fingerstick) 123mg/dL (70-99) MOODY GELLER MD Jul 29, 2016 08:40
[2016-07-29] MEDS: SPIRONOLACTONE 25 MG TABLET PO SCH (09:12)
[2016-07-29] MEDS: LACTOBACILLUS ACIDOPH & BULGAR 1 TABLET. PO SCH ×3 (09:12→17:00)
[2016-07-29] MEDS: ASPIRIN 81 MG TAB.CHEW PO SCH (09:13)
[2016-07-29] MEDS: GABAPENTIN 100 MG CAPSULE. PO SCH ×2 (09:13→20:55)
[2016-07-29] MEDS: FLUCONAZOLE 100 MG TABLET. PO SCH (09:14)
[2016-07-29] MEDS: FUROSEMIDE 40 MG/4 ML VIAL IVP SCH (09:14)
[2016-07-29] MEDS: methylPREDNISolone SOD SUCC PF 40 MG/ML VIAL. IV SCH (09:14)
[2016-07-29] MEDS: LISINOPRIL 5 MG TABLET. PO SCH (09:14)
--- NOTE | 2016-07-29 09:44 | PDOC ---
Infectious Disease Note Subjective Subjective awake ROS ROS GEN: Denies fevers, chills, sweats HEENT: Denies blurred vision, sore throat CV: Denies chest pain RESP: Denies shortness of air, cough GI: Denies n/v/d NEURO: Denies confusion, dizziness MSK: Denies weakness, joint pain/swelling Vital Sign Vital Signs Vital Signs Date Time Temp Pulse Resp B/P Pulse Ox O2 Delivery O2 Flow Rate FiO2 07/29/16 09:14 62 115/63 07/29/16 07:53 92 Nasal Cannula 6.0 07/29/16 07:00 98.7 20 98.7 Physical Exam PHYSICAL EXAM GENERAL: NAD, Alert HEENT: PERRL, OC/OP NECK: Supple, no JVD, no LN LUNGS: Clear HEART: S1S2, no gallop, no murmur ABD: Soft, NT, no organomegaly, no rebound EXT: No edema, no cyanosis, mateus lower ext redness less [employer]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 MSSA, PSA, Proteus, improved PAD - aortogram clean JONATHAN Hyperglycemia Tinea Pre-diabetes, HbA1c 6.0 MRSA screen positive Respiratory failure Plan Plan of Care Continue Zosyn and fluconazole Cont Probiotics Monitor labs TAHMINA GOEL MD Jul 29, 2016 09:44
--- NOTE | 2016-07-29 10:16 | PDOC ---
PULMONARY PROGRESS NOTES Subjective OFF VENT 07/27 NO RESP COMPLAINTS VERY WEAK Vitals Vital Signs Date Time Temp Pulse Resp B/P Pulse Ox O2 Delivery O2 Flow Rate FiO2 07/29/16 09:14 62 115/63 07/29/16 08:00 Nasal Cannula 6.0 07/29/16 07:53 92 07/29/16 07:00 98.7 20 98.7 General: Alert, No acute distress Lungs: Clear Cardiovascular: S1, S2 Abdomen: Soft Neuro Exam: Alert Extremities: Other (venous stasis) Skin: Warm Labs Laboratory Tests Test 07/27/16 11:02 07/27/16 14:40 07/27/16 17:12 07/28/16 00:50 Glucose (Fingerstick) 161mg/dL (70-99) 149mg/dL (70-99) 87mg/dL (70-99) Serum Cryoglobulins N (None detected) Test 07/28/16 07:36 07/28/16 09:30 07/28/16 12:48 07/28/16 16:41 Glucose (Fingerstick) 89mg/dL (70-99) 162mg/dL (70-99) 141mg/dL (70-99) O2 Saturation 93% (92-99) Arterial Blood pH 7.44 (7.35-7.45) Arterial Blood pCO2 at Patient Temp 58mmHg (35-46) Arterial Blood pO2 at Patient Temp 66mmHg (65-108) Arterial Blood HCO3 39mmol/L (21-28) Arterial Blood Base Excess 12mmol/L (-3-3) FiO2 6 lpm nc Test 07/28/16 21:34 07/29/16 07:39 Glucose (Fingerstick) 128mg/dL (70-99) 123mg/dL (70-99) Laboratory Tests Test 07/28/16 12:48 07/28/16 16:41 07/28/16 21:34 07/29/16 07:39 Glucose (Fingerstick) 162mg/dL (70-99) 141mg/dL (70-99) 128mg/dL (70-99) 123mg/dL (70-99) Medications Active Scripts Medications Dose Route/Sig Days Date Category Ventolin Hfa Inhaler (Albuterol Sulfate) 18 Gm Hfa.aer.ad 2 Puff INH PRN Q6HRS PRN 3/12/17 Reported Ibuprofen 400 Mg Tablet 400 Mg PO TID PRN 07/18/16 Reported Neurontin (Gabapentin) 100 Mg Capsule 100 Mg PO BID 07/18/16 Reported Mirtazapine 30 Mg Tablet 1 Tab PO QHS 07/18/16 Reported Spironolactone 25 Mg Tablet 1 Tab PO DAILY 07/18/16 Reported Duoneb 0.5-3(2.5) Mg/3 Ml (Albuterol/Ipratropium) 3 Ml Ampul.neb 3 Ml NEB QID PRN 07/18/[address] CHEST CT Chest 1. Emphysema. 2. Moderate interlobular septal thickening in the lungs suggesting interstitial edema, although there may be a component of fibrosis. 3. Tiny right pleural effusion. 4. Mild right lower lobe atelectasis and/or pneumonitis. 5. Tiny pericardial effusion. 6. Probable cholelithiasis. Impression . 1. Acute on chronic hypoxemic hypercapnic respiratory failure, multifactorial in nature. EXTUBATED 07/27 2. pulmonary fibrosis. 3. Bilateral lower extremity cellulitis arterial gram no dz 4. Tobacco dependent. 5. Hypertension. 6. Obesity. 7. Significant occupational exposure. The patient worked in the [employer]. 8. Suspect ARNEL/OHS 9. Possible pulmonary edema, suspect Acute Cor pulmonale 10. Dysphagia Plan . ABG noted Pt a chronic retainer maintain co2 close to 60 02 titration Lasix Continue current antibiotics per ID. Nebulized treatments decrease steroids tube feeding speech f/u d/w LCUAS Sheridan MD Jul 29, 2016 10:16
[2016-07-29 11:00] VITALS: BP 121/73
[2016-07-29] MEDS: DO NOT USE 40 MG/0.4 ML DISP.SYRIN SQ SCH (11:04)
--- NOTE | 2016-07-29 12:34 | PDOC ---
PROGRESS NOTES Chief Complaint Chief Complaint Cellulitis 1. LE cellulitis 2. PVD/PAD, with normal angiogram 3. Hypoxic, hypercarbic respir status w/o distress ,CT chest with emphysema, interstitial thickening (edema vs fibrosis). successfully extubated 07/27 4. Hypotension: resolved. prob 2/2 sedatives. 5. HTN 6. DM 7. depression 8. Thrombocytopenia 9. Reynaud's syndrome/ leg discoloration ble leg venous stasis dermatitis 10 tobaccoism plan: fu with pulm, vascular, id cont zosyn , fluconazole with ID no need derm bx PTOT NGT feeding , cont swallow eval daily dvt, gi ppx History of Present Illness History of Present Illness very weak, still need NC 6 liters, denies sob tho wants to eat, failed swallow, on NGT feeding bl leg cellulitis better neg angiogram Vitals Vitals Vital Signs Date Time Temp Pulse Resp B/P Pulse Ox O2 Delivery O2 Flow Rate FiO2 07/29/16 11:48 60 Nasal Cannula 6.0 07/29/16 11:00 97.4 67 18 121/73 97.4 Physical Exam General: Alert Heart: Regular rate Lungs: Clear Abdomen: Normal bowel sounds, No tenderness, Other (Rounded and somewhat protruding. Patient states this is normal for him.) Extremities: No clubbing, Other (deep purple discoloration from bilat dorsi of feet to almost knees. open wounds covered with gauze.) Skin: Other (chronic venous stasis changes) Labs LABS Laboratory Tests Test 07/28/16 12:48 07/28/16 16:41 07/28/16 21:34 07/29/16 07:39 Glucose (Fingerstick) 162mg/dL (70-99) 141mg/dL (70-99) 128mg/dL (70-99) 123mg/dL (70-99) Test 07/29/16 11:05 Glucose (Fingerstick) 205mg/dL (70-99) Review of Systems Review of Systems no fever, chills, chest pain Assessment and Plan Assessmemt and Plan Problems Medical Problems: (1) Cellulitis Status: Acute Problems: Comment Review of Relevant I have reviewed the following items gosia (where applicable) has been applied. Labs Laboratory Tests Test 07/27/16 14:40 07/27/16 17:12 07/28/16 00:50 07/28/16 07:36 Serum Cryoglobulins N (None detected) Glucose (Fingerstick) 149mg/dL (70-99) 87mg/dL (70-99) 89mg/dL (70-99) Test 07/28/16 09:30 07/28/16 12:48 07/28/16 16:41 07/28/16 21:34 O2 Saturation 93% (92-99) Arterial Blood pH 7.44 (7.35-7.45) Arterial Blood pCO2 at Patient Temp 58mmHg (35-46) Arterial Blood pO2 at Patient Temp 66mmHg (65-108) Arterial Blood HCO3 39mmol/L (21-28) Arterial Blood Base Excess 12mmol/L (-3-3) FiO2 6 lpm nc Glucose (Fingerstick) 162mg/dL (70-99) 141mg/dL (70-99) 128mg/dL (70-99) Test 07/29/16 07:39 07/29/16 11:05 Glucose (Fingerstick) 123mg/dL (70-99) 205mg/dL (70-99) Laboratory Tests Test 07/28/16 12:48 07/28/16 16:41 07/28/16 21:34 07/29/16 07:39 Glucose (Fingerstick) 162mg/dL (70-99) 141mg/dL (70-99) 128mg/dL (70-99) 123mg/dL (70-99) Test 07/29/16 11:05 Glucose (Fingerstick) 205mg/dL (70-99) Microbiology 07/18/16 Blood Culture - Final, Complete NO GROWTH AFTER 5 DAYS 07/25/16 Sputum Culture - Final, Complete 07/25/16 Sputum Result 1 - Final, Complete 07/19/16 Anaerobic/Aerobic Culture - Final, Complete 07/19/16 Anaerobic Culture Result 1 (YELITZA) - Final, Complete 07/19/16 Aerobic Culture - Final, Complete 07/19/16 Aerobic Culture Result 1 (YELITZA) - Final, Complete 07/19/16 Aerobic Culture Result 2 (YELITZA) - Final, Complete 07/19/16 Aerobic Culture Result 3 (YELITZA) - Final, Complete 07/19/16 Aerobic Culture Result 4 (YELITZA) - Final, Complete 07/19/16 Antimicrobic Susceptibility - Final, Complete Medications Current Medications Vancomycin HCl 1 each 1 each PRN DAILY PRN [facility] PHARMACY TO DOSE Last administered on 07/22/16 17:12; Start 07/18/16 at 09:00; Stop 07/23/16 at 08:51 ; Status DC Sodium Chloride (Iv Sodium Chloride 0.9% 1000ml Bag) 1,000 ml @ 1,000 mls/hr Q1H IV Last administered on 07/18/16 09:49; Start 07/18/16 at 08:54; Stop 04/24 at 09:53; Status DC Sodium Chloride (Normal Saline Flush) 10 ml QSHIFT PRN IV AFTER MEDS AND BLOOD DRAWS Last administered on 07/18/16 09:49; Start 07/18/16 at 09:00 Piperacillin Sod/ Tazobactam Sod (Zosyn Per Pharmacy) 1 each PRN DAILY PRN MC SEE COMMENTS; Start 07/18/16 at 09:00; Stop 07/23/16 at 08:46; Status DC Morphine Sulfate 5 mg 5 mg 1X ONCE IV Last administered on 07/18/16 09:49; Start 07/18/16 at 09:00; Stop 07/18/16 at 09:20; Status DC Piperacillin Sod/ Tazobactam Sod 3.375 gm/Sodium Chloride 50 ml @ 100 mls/hr 1X ONCE IV Last administered on 07/18/16 09:50; Start 07/18/16 at 10:00; Stop 07/18/16 at 10:29; Status DC Vancomycin HCl/ Sodium Chloride (Iv Sodium Chloride 0.9% 500ml Bag) 500 ml @ 250 mls/hr 1X ONCE IV Last administered on 07/18/16 10:49; Start 07/18/16 at 10:00; Stop 07/18/16 at 11:59; Status DC Morphine Sulfate 4 mg 4 mg PRN Q4HRS PRN IV PAIN Last administered on 10:54; Start 07/18/16 at 09:45; Stop 07/19/16 at 18:33; Status DC Sodium Chloride (Iv Sodium Chloride 0.9% 1000ml Bag) 1,000 ml @ 125 mls/hr Q8H IV Last administered on 07/18/16 10:54; Start 07/18/16 at 09:42; Stop at 09:41; Status DC Albuterol/ Ipratropium 3 ml 3 ml Q6HRS NEB ; Start 07/18/16 at 12:00; Stop 07/18 at 16:06; Status DC Piperacillin Sod/ Tazobactam Sod 3.375 gm/Sodium Chloride 50 ml @ 100 mls/hr Q6HRS IV Last administered on 07/29/16 12:15; Start 07/18/16 at 18:00 Vancomycin HCl/ Sodium Chloride (Iv Sodium Chloride 0.9% 500ml Bag) 500 ml @ 250 mls/hr Q8H IV Last administered on 07/19/16 02:19; Start 07/18/16 at 18:00 ; Stop 07/19/16 at 10:15; Status DC Vancomycin HCl 1 each 1X ONCE MC Last administered on 07/19/16 09:30; Start 07/19/16 at 09:30; Stop 07/19/16 at 09:31; Status DC Gabapentin (Neurontin) 100 mg BID PO Last administered on 07/29/16 09:13; Start 07/18/16 at 21:00 Ibuprofen (Motrin) 400 mg PRN TID PRN PO INFLAMMATION Last administered on 07/21 10:16; Start 07/18/16 at 16:15; Stop 07/21/16 at 17:44; Status DC Albuterol/ Ipratropium (Duoneb) 3 ml QID PRN NEB SHORTNESS OF BREATH; Start 04/24 at 16:15; Stop 07/18/16 at 16:19; Status DC Spironolactone (Aldactone) 25 mg DAILY PO Last administered on 07/29/16 09:12 ; Start 07/18/16 at 17:00 Non-Formulary Medication 2 puff PRN Q6HRS PRN INH SHORTNESS OF BREATH; Start at 16:15; Stop 07/18/16 at 16:18; Status DC Mirtazapine (Remeron) 30 mg QHS PO Last administered on 07/28/16 21:56; Start 07/18/16 at 21:00 Albuterol/ Ipratropium (Duoneb) 3 ml RTQID NEB Last administered on 07/29/16 11:46; Start 07/18/16 at 17:00 Oxycodone/ Acetaminophen (Percocet 5/325) 1 tab PRN Q4HRS PRN PO PAIN Last administered on 07/21/16 21:16; Start 07/18/16 at 16:15 Albuterol Sulfate 2.5 mg 2.5 mg PRN Q6HRS PRN NEB SHORTNESS OF BREATH; Start at 16:15 Vancomycin HCl/ Sodium Chloride (Iv Sodium Chloride 0.9% 250ml) 250 ml @ 250 mls/hr Q12H IV Last administered on 07/22/16 21:06; Start 07/19/16 at 21:00; Stop 07/23/16 at 08:50; Status DC Iodixanol (Visipaque 320) 50 ml STK-MED ONCE .ROUTE ; Start 07/19/16 at 16:28; Stop 07/19/16 at 16:29; Status DC Iohexol (Omnipaque 300 Mg/ml) 100 ml STK-MED ONCE .ROUTE ; Start 07/19/16 at 16: 28; Stop 07/19/16 at 16:29; Status DC Lidocaine/Sodium Bicarbonate 20 ml 20 ml STK-MED ONCE IJ ; Start 07/19/16 at 16: 28; Stop 07/19/16 at 16:29; Status DC Heparin Sodium/ Sodium Chloride 500 ml @ As Directed STK-MED ONCE .ROUTE ; Start 07/19/16 at 16:28; Stop 07/19/16 at 16:29; Status DC Iodixanol (Visipaque 320) 100 ml STK-MED ONCE .ROUTE ; Start 07/19/16 at 16:29; Stop 07/19/16 at 16:30; Status DC Aspirin (Ecotrin) 81 mg DAILYWBKFT PO Last administered on 07/27/16 08:00; Start 07/19/16 at 17:30; Stop 07/29/16 at 07:23; Status DC Fluconazole (Diflucan) 100 mg DAILY PO Last administered on 07/29/16 09:14; Start 07/19/16 at 18:45 Vancomycin HCl 1 each 1X ONCE MC Last administered on 07/21/16 08:30; Start 07/21/16 at 08:30; Stop 07/21/16 at 08:31; Status DC Morphine Sulfate 1 mg 1 mg PRN Q10MIN PRN IV SEVERE PAIN; Start 07/22/16 at 07: 00; Stop 07/22/16 at 07:00; Status DC Lactated Ringer's (Iv Lactated Ringers) 1,000 ml @ 30 mls/hr Q24H IV ; Start at 07:00; Stop 07/22/16 at 18:59; Status DC Lidocaine HCl 2 ml 1X PRN PRN ID IV START; Start 07/22/16 at 07:00; Stop at 06:59; Status DC Hydromorphone HCl (Dilaudid) 0.5 mg PRN Q10MIN PRN IV SEVERE PAIN, Second choice; Start 07/22/16 at 07:00; Stop 07/22/16 at 07:00; Status DC Prochlorperazine Edisylate (Compazine) 5 mg PACU PRN PRN IV NAUSEA; Start 07/22 at 07:00; Stop 07/23/16 at 06:59; Status DC Lisinopril (Prinivil) 5 mg DAILY PO Last administered on 07/29/16 09:14; Start 07/21/16 at 18:00 Hydromorphone HCl (Dilaudid) 0.5 mg PRN Q2HRS PRN IV SEVERE PAIN Last administered on 07/23/16 05:53; Start 07/21/16 at 18:00 Insulin Aspart (Novolog) 0-5 UNITS TIDWMEALS SQ Last administered on 07/26/16 16:54; Start 07/22/16 at 08:00; Stop 07/27/16 at 00:24; Status DC Dextrose 12.5 gm PRN Q15MIN PRN IV SEE COMMENTS; Start 07/21/16 at 17:45 Lactobacillus Acidophilus (Bacid, Yessica-Bid) 1 tab TIDWMEALS PO Last administered on 07/29/16 12:15; Start 07/22/16 at 12:00 Furosemide 40 mg 40 mg 1X ONCE IVP ; Start 07/22/16 at 12:00; Stop 07/22/16 at 12:02; Status DC Propofol (Diprivan) 20 ml @ As Directed STK-MED ONCE IV ; Start 07/22/16 at 13: 03; Stop 07/22/16 at 13:04; Status DC Dexamethasone Sodium Phosphate (Decadron) 20 mg STK-MED ONCE .ROUTE ; Start at 13:03; Stop 07/22/16 at 13:04; Status DC Famotidine (Pepcid) 20 mg STK-MED ONCE .ROUTE ; Start 07/22/16 at 13:03; Stop at 13:04; Status DC Ondansetron HCl (Zofran) 4 mg STK-MED ONCE .ROUTE ; Start 07/22/16 at 13:03; Stop 07/22/16 at 13:04; Status DC Lidocaine HCl 100 mg STK-MED ONCE .ROUTE ; Start 07/22/16 at 13:03; Stop at 13:04; Status DC Succinylcholine Chloride (Anectine) 200 mg STK-MED ONCE .ROUTE ; Start 07/22/16 at 13:04; Stop 07/22/16 at 13:05; Status DC Rocuronium [place] (Zemuron) 50 mg STK-MED ONCE .ROUTE ; Start 07/22/16 at 13:04 ; Stop 07/22/16 at 13:05; Status DC Iodixanol (Visipaque 320) 50 ml STK-MED ONCE .ROUTE ; Start 07/22/16 at 13:27; Stop 07/22/16 at 13:28; Status DC Iohexol (Omnipaque 300 Mg/ml) 100 ml STK-MED ONCE .ROUTE ; Start 07/22/16 at 13: 28; Stop 07/22/16 at 13:29; Status DC Lidocaine/Sodium Bicarbonate 20 ml 20 ml STK-MED ONCE IJ ; Start 07/22/16 at 13: 28; Stop 07/22/16 at 13:29; Status DC Heparin Sodium/ Sodium Chloride 1,500 ml @ As Directed STK-MED ONCE .ROUTE ; Start 07/22/16 at 13:28; Stop 07/22/16 at 13:29; Status DC Iodixanol 100 ml 100 ml STK-MED ONCE .ROUTE ; Start 07/22/16 at 13:28; Stop at 13:29; Status DC Propofol (Diprivan) 100 ml @ 16.67 mls/ hr CONT PRN PRN IV SEDATION Last administered on 07/23/16 00:07; Start 07/22/16 at 14:30; Stop 07/23/16 at 02:29 ; Status DC Midazolam HCl (Versed) 2 mg PRN Q10MIN PRN IV ANXIETY / AGITATION; Start at 14:30; Stop 07/23/16 at 14:29; Status DC Heparin Sodium/ Sodium Chloride 1,000 unit 1X ONCE IART Last administered on 14:35; Start 07/22/16 at 14:30; Stop 07/22/16 at 14:31; Status DC Lidocaine/Sodium Bicarbonate (Buffered Lidocaine 1%) 2 ml 1X ONCE IJ Last administered on 07/22/16 14:35; Start 07/22/16 at 14:30; Stop 07/22/16 at 14:31 ; Status DC Iohexol (Omnipaque 300 Mg/ml) 45 ml 1X ONCE IART Last administered on 14:34; Start 07/22/16 at 14:30; Stop 07/22/16 at 14:31; Status DC Iodixanol (Visipaque 320) 77 ml 1X ONCE IART Last administered on 07/22/16 14 :34; Start 07/22/16 at 14:30; Stop 07/22/16 at 14:31; Status DC Info (Do NOT chart on this entry -- for MONITORING) 1 each PRN DAILY PRN MC SEE COMMENTS; Start 07/22/16 at 14:45; Stop 07/24/16 at 14:44; Status DC Fentanyl Citrate (Fentanyl 2ml Vial) 100 mcg STK-MED ONCE .ROUTE ; Start at 15:27; Stop 07/22/16 at 15:28; Status DC Fentanyl Citrate 50 mcg 50 mcg PRN Q5MIN PRN IV Acute Pain Last administered on 07/22/16 15:45; Start 07/22/16 at 15:30; Stop 07/22/16 at 23:00; Status DC Midazolam HCl 100 ml @ As Directed STK-MED ONCE IV ; Start 07/22/16 at 15:46; Stop 07/22/16 at 15:47; Status DC Midazolam HCl 100 ml @ 0 mls/hr CONT PRN IV SEE I/O RECORD; Start 07/22/16 at 16:00 Propofol 100 ml @ As Directed STK-MED ONCE IV ; Start 07/23/16 at 04:06; Stop 07/23/16 at 04:07; Status DC Propofol (Diprivan) 100 ml @ 0 mls/hr CONT PRN IV SEE I/O RECORD Last administered on 07/27/16 05:46; Start 07/23/16 at 04:15 Budesonide (Pulmicort) 0.5 mg RTBID NEB Last administered on 07/27/16 08:03; Start 07/23/16 at 08:00; Stop 07/27/16 at 11:34; Status DC Methylprednisolone Sodium Succinate (Solu-Medrol 40mg Vial) 40 mg Q8HRS IV Last administered on 07/27/16 05:45; Start 07/23/16 at 10:00; Stop 07/27/16 at 11:34; Status DC Enoxaparin Sodium (Lovenox 40mg Syringe) 40 mg Q24H SQ Last administered on 11:04; Start 07/24/16 at 10:00 Chlorhexidine Gluconate 15 ml 15 ml BID MM Last administered on 07/28/16 07:40 ; Start 07/25/16 at 09:00; Stop 07/28/16 at 15:03; Status DC Fentanyl Citrate (Fentanyl 600 Mcg/30 ml EMBEDDED CASE MANAGER) 30 ml @ 0 mls/hr CONT PRN IV PROTOCOL Last administered on 07/26/16 14:58; Start 07/25/16 at 09:00 Scopolamine (Transderm-Scop) 1 patch Q3DAYS TD Last administered on 07/28/16 07:40; Start 07/25/16 at 19:00 Multi-Ingred Cream/Lotion/Oil/ Oint (Artificial Tears Eye Oint) 1 kiah PRN Q1HR PRN OU DRY EYE Last administered on 07/26/16 01:40; Start 07/25/16 at 19:15 Acetaminophen (Tylenol) 650 mg PRN Q6HRS PRN PEG MILD PAIN / TEMP; Start at 09:15 Ondansetron HCl (Zofran) 4 mg PRN Q6HRS PRN IV NAUSEA/VOMITING; Start 07/26/16 at 09:15 Metoclopramide HCl (Reglan) 10 mg PRN Q6HRS PRN IV NAUSEA/VOMITING; Start 07/26 at 09:15 Insulin Aspart (Novolog) 0-5 UNITS QIDACHS SQ Last administered on 07/29/16 11 :09; Start 07/27/16 at 00:30 Methylprednisolone Sodium Succinate (Solu-Medrol 40mg Vial) 40 mg DAILY IV Last administered on 07/29/16 09:14; Start 07/28/16 at 09:00 Furosemide (Lasix) 40 mg DAILY IVP Last administered on 07/29/16 09:14; Start 07/27/16 at 11:45 Aspirin (Children'S Aspirin) 81 mg DAILYWBKFT PO Last administered on 09:13; Start 07/29/16 at 08:00 Active Scripts Active Reported Ventolin Hfa Inhaler (Albuterol Sulfate) 18 Gm Hfa.aer.ad 2 Puff INH PRN Q6HRS PRN Ibuprofen 400 Mg Tablet 400 Mg PO TID PRN Neurontin (Gabapentin) 100 Mg Capsule 100 Mg PO BID Mirtazapine 30 Mg Tablet 1 Tab PO QHS Spironolactone 25 Mg Tablet 1 Tab PO DAILY Duoneb 0.5-3(2.5) Mg/3 Ml (Albuterol/Ipratropium) 3 Ml Ampul.neb 3 Ml NEB QID PRN Vitals/I & O Vital Sign - Last 24 Hours 07/28/16 07/28/16 07/28/16 07/28/16 13:00 14:00 15:00 16:00 Temp 98.5 98.5 Pulse 70 70 72 65 Resp 16 20 22 B/P 132/70 120/69 112/73 122/74 Pulse Ox 93 93 92 94 O2 Delivery Nasal Cannula Nasal Cannula Nasal Cannula Nasal Cannula O2 Flow Rate 6.0 6.0 6.0 6.0 07/28/16 07/28/16 07/28/16 07/28/16 17:14 19:16 20:12 21:00 Temp 98.3 98.3 Pulse 71 Resp 18 B/P 115/68 Pulse Ox 92 94 O2 Delivery Nasal Cannula Room Air Nasal Cannula Nasal Cannula O2 Flow Rate 6.0 6.0 5.0 07/28/16 07/29/16 07/29/16 07/29/16 22:34 03:48 07:00 07:53 Temp 97.6 97.6 98.7 97.6 97.6 98.7 Pulse 67 71 62 Resp 18 18 20 B/P 121/71 121/64 115/63 Pulse Ox 92 89 90 92 O2 Delivery Nasal Cannula Nasal Cannula Nasal Cannula Nasal Cannula O2 Flow Rate 5.0 6.0 6.0 6.0 07/29/16 07/29/16 07/29/16 07/29/16 08:00 09:14 11:00 11:48 Temp 97.4 97.4 Pulse 62 67 Resp 18 B/P 115/63 121/73 Pulse Ox 90 60 O2 Delivery Nasal Cannula Nasal Cannula Nasal Cannula O2 Flow Rate 6.0 6.0 6.0 Intake and Output 07/28/16 07/28/16 07/29/16 15:00 23:00 07:00 Intake Total 500 ml 1770 ml Output Total 2300 ml 300 ml 650 ml Balance -2300 ml 200 ml 1120 ml ALTAGRACIA AJ MD Jul 29, 2016 12:34
--- NOTE | 2016-07-29 15:09 | RAD ---
Indication assess Dobbhoff feeding tube placement. A single image targeted to the lower chest and upper abdomen was obtained. A Dobbhoff feeding tube is noted with its tip in the mid body of the stomach. IMPRESSION: Dobbhoff feeding tube with its tip in the mid body of the stomach
[2016-07-29 15:15] VITALS: BP 125/76
--- NOTE | 2016-07-29 18:47 | RAD ---
PROCEDURE KUB. HISTORY Dobhoff placement. TECHNIQUE KUB is submitted for review. COMPARISON None. FINDINGS Dobhoff feeding tube projects below the diaphragm in the stomach. Film is centered just below the diaphragm to the left of midline. The included bowel gas pattern is nonobstructive. IMPRESSION Endogastric tube appears in place. Electronically signed by: Get Du MD (Jul 29, 2016 18:45:35)
[2016-07-29 19:38] VITALS: BP 121/74
[2016-07-29] MEDS: MIRTAZAPINE 15 MG TABLET PO SCH (20:55)
[2016-07-29 23:02] VITALS: BP 111/68
[2016-07-30] MEDS: PIPERACILLIN/TAZOBACTAM 3.375 GM in IV NORMAL SALINE 50ML 50 ML IV SCH ×2 (00:12→05:14)
[2016-07-30 02:38] VITALS: BP 103/56
[2016-07-30 06:23] LABS: BASO % 0 % (0-3); EOS % 1 % (0-3); HEMOGLOBIN 15.1 g/dL (13.0-17.5); LYMPH # 1.1 x10^3/uL (1.0-4.8); LYMPH % 12 % (24-48); MEAN CORPUSCULAR HEMOGLOBIN 28 pg (25-35); MEAN CORPUSCULAR HGB CONC 32 g/dL (31-37); MEAN CORPUSCULAR VOLUME 88 fL (79-100); MONO % 9 % (0-9); NEUT % 78 % (31-73); PLATELET COUNT 156 x10^3/uL (140-400); RED BLOOD COUNT 5.44 x10^6/uL (4.30-5.70); RED CELL DISTRIBUTION WIDTH 15.6 % (11.5-14.5); WHITE BLOOD COUNT 8.9 x10^3/uL (4.0-11.0)
[2016-07-30 06:50] LABS: CALCIUM 9.2 mg/dL (8.5-10.1); CREATININE 1.4 mg/dL (0.7-1.3); GFR 51.7; POTASSIUM 3.5 mmol/L (3.5-5.1)
[2016-07-30 07:00] VITALS: BP 109/67
[2016-07-30] MEDS: IPRATRPIUM/ALBUTEROL 0.5/2.5MG 3 ML NEBU. NEB SCH ×2 (07:37→11:09)
[2016-07-30] MEDS: FUROSEMIDE 40 MG/4 ML VIAL IVP SCH ×2 (09:00→09:12)
[2016-07-30] MEDS: SPIRONOLACTONE 25 MG TABLET PO SCH (09:12)
[2016-07-30] MEDS: methylPREDNISolone SOD SUCC PF 40 MG/ML VIAL. IV SCH (09:12)
[2016-07-30] MEDS: FLUCONAZOLE 100 MG TABLET. PO SCH (09:12)
[2016-07-30] MEDS: GABAPENTIN 100 MG CAPSULE. PO SCH (09:12)
[2016-07-30] MEDS: LACTOBACILLUS ACIDOPH & BULGAR 1 TABLET. PO SCH (09:12)
[2016-07-30] MEDS: ASPIRIN 81 MG TAB.CHEW PO SCH (09:12)
[2016-07-30] MEDS: LISINOPRIL 5 MG TABLET. PO SCH (09:12)
[2016-07-30] MEDS: DO NOT USE 40 MG/0.4 ML DISP.SYRIN SQ SCH (09:13)
[2016-07-30] MEDS ORDERED: SCOP1PAT TD (09:53)
[2016-07-30] MEDS ORDERED: METH40VI IV (09:53)
[2016-07-30] MEDS ORDERED: FLUC100T7 PO (09:53)
[2016-07-30] MEDS: INSULIN ASPART 300 UNITS/3 ML INSULN.PEN SQ SCH ×2 (09:59→11:30)
--- NOTE | 2016-07-30 10:57 | PDOC3 ---
Discharge Summary [facility] Date of Admission: Jul 18, 2016 Discharge Date: Jul 30, 2016 Admitting Diagnosis 1. LE cellulitis 2. PVD/PAD, with normal angiogram 3. Hypoxic, hypercarbic respir status w/o distress ,CT chest with emphysema, interstitial thickening (edema vs fibrosis). successfully extubated 07/27 4. Hypotension: resolved. prob 2/2 sedatives. 5. HTN 6. DM 7. depression 8. Thrombocytopenia 9. Reynaud's syndrome/ leg discoloration ble leg venous stasis dermatitis 10 tobaccoism 11. dysphagia post intubation 12. generalized weakness post intubation, icu 13. JONATHAN, vasomotor Problems: Final Diagnosis CONSULTS id pulm vascular Brief Hospital Course Mr. Manuel is a 61 old M, from SNF, for bl leg cellulitis. Pt underwent angiogram and could not extubate for 6days. Angiogram is neg, and no vascular intervention was given. pt was given zosyn, diflucan for bl leg cellulitis, much better now. extubated on 07/27, still failed swallow eval, on NGT feeding now denies sob. dc lasix since JONATHAN now. dc to LTAC, dc time 35min. General: Alert Heart: Regular rate Lungs: Clear Abdomen: Normal bowel sounds, No tenderness, Other (Rounded and somewhat protruding. Patient states this is normal for him.) Extremities: No clubbing, Other (deep purple discoloration from bilat dorsi of feet to almost knees. open wounds covered with gauze.) Skin: Other (chronic venous stasis changes) Problems: Disposition LTAC CONDITION AT DISCHARGE: Improved Diet NGT feeding Scheduled Fluconazole (Diflucan) 100 MG PO DAILY Gabapentin (Neurontin) 100 MG PO BID (Reported) Methylprednisolone Sod Succ/Pf (Solu-Medrol 40 Mg Vial) 40 MG IV DAILY Mirtazapine (Mirtazapine) 1 TAB PO QHS (Reported) Scopolamine (Transderm-Scop) 1 PATCH TD Q3DAYS Scheduled PRN Albuterol Sulfate (Ventolin Hfa Inhaler) 2 PUFF INH PRN Q6HRS PRN PRN SHORTNESS OF BREATH (Reported) Ipratropium/Albuterol Sulfate (Duoneb 0.5-3(2.5) Mg/3 Ml) 3 ML NEB QID PRN PRN SHORTNESS OF BREATH (Reported) Discontinued Medications Ibuprofen (Ibuprofen) 400 MG PO TID PRN PRN INFLAMMATION (Reported) Spironolactone (Spironolactone) 1 TAB PO DAILY (Reported) Follow Up pcp in 2 weeks ALTAGRACIA AJ MD Jul 30, 2016 10:57
[2016-07-30 11:00] VITALS: BP 129/77
--- NOTE | 2016-07-30 11:38 | PDOC ---
Infectious Disease Note Subjective Subjective awake ROS ROS no n/v/d/ Vital Sign Vital Signs Vital Signs Date Time Temp Pulse Resp B/P Pulse Ox O2 Delivery O2 Flow Rate FiO2 07/30/16 11:09 94 Nasal Cannula 6.0 07/30/16 11:00 99.4 59 20 129/77 99.4 Physical Exam PHYSICAL EXAM GENERAL: NAD, Alert HEENT: PERRL, OC/OP NECK: Supple, no JVD, no LN LUNGS: Clear HEART: S1S2, no gallop, no murmur ABD: Soft, NT, no organomegaly, no rebound EXT: No edema, no cyanosis EXECUTIVE VICE PRESIDENT: Alert, oriented x 3, no focal neurologic deficit SKIN: No rash IV: ok Labs Lab Laboratory Tests Test 07/29/16 17:22 07/29/16 20:54 07/30/16 05:50 07/30/16 07:31 Glucose (Fingerstick) 154mg/dL (70-99) 126mg/dL (70-99) 152mg/dL (70-99) White Blood Count 8.9x10^3/uL (4.0-11.0) Red Blood Count 5.44x10^6/uL (4.30-5.70) Hemoglobin 15.1g/dL (13.0-17.5) Hematocrit 48.0% (39.0-53.0) Mean Corpuscular Volume 88fL (79-100) Mean Corpuscular Hemoglobin 28pg (25-35) Mean Corpuscular Hemoglobin Concent 32g/dL (31-37) Red Cell Distribution Width 15.6% (11.5-14.5) Platelet Count 156x10^3/uL (140-400) Neutrophils (%) (Auto) 78% (31-73) Lymphocytes (%) (Auto) 12% (24-48) Monocytes (%) (Auto) 9% (0-9) Eosinophils (%) (Auto) 1% (0-3) Basophils (%) (Auto) 0% (0-3) Neutrophils # (Auto) 6.9x10^3uL (1.8-7.7) Lymphocytes # (Auto) 1.1x10^3/uL (1.0-4.8) Monocytes # (Auto) 0.8x10^3/uL (0.0-1.1) Eosinophils # (Auto) 0.1x10^3/uL (0.0-0.7) Basophils # (Auto) 0.0x10^3/uL (0.0-0.2) Sodium Level 146mmol/L (136-145) Potassium Level 3.5mmol/L (3.5-5.1) Chloride Level 103mmol/L (98-107) Carbon Dioxide Level 38mmol/L (21-32) Anion Gap 5 (6-14) Blood Urea Nitrogen 55mg/dL (8-26) Creatinine 1.4mg/dL (0.7-1.3) Estimated GFR (Cockcroft-Gault) 51.7 Glucose Level 150mg/dL (70-99) Calcium Level 9.2mg/dL (8.5-10.1) Test 07/30/16 11:30 Glucose (Fingerstick) 136mg/dL (70-99) Objective Assessment LE Cellulitis. MSSA, PSA, Proteus, improved PAD - aortogram clean JONATHAN Hyperglycemia Tinea Pre-diabetes, HbA1c 6.0 MRSA screen positive Respiratory failure Plan Plan of Care Continue Zosyn and fluconazole Cont Probiotics Monitor labs TAHMINA GOEL MD Jul 30, 2016 11:38
--- NOTE | 2016-07-30 12:26 | RAD ---
Indication difficulty breathing. Pneumonia. Single view of the chest was obtained. Comparison is made to a study 3 days earlier. Aeration of the lungs has improved slightly. Volume loss at the lung bases persists similar to the previous exam likely reflecting pleural fluid and atelectasis. Underlying pneumonia certainly is not excluded. Dobbhoff feeding tube is noted. Positioning of the tip is uncertain. Endotracheal tube has been removed. Heart and pulmonary vessels are similar. IMPRESSION: Persistent volume loss at the lung bases similar to the study 3 days earlier.
== END 2016-07-30 12:30 | DRG 207 ==
LOC: ER 08:22 → 4 NORTH 09:31 → 1 WEST ICU 07-22 15:38 → 6 SOUTH 07-28 15:34
PROVIDERS: ADMIT Internal Medicine; ATTEND Internal Medicine
PROC: 5A1955Z Respiratory Ventilation, Greater than 96 Consecutive Hours (ICD-10-PCS; 2016-07-18)
PROC: 0BH17EZ Insertion of Endotracheal Airway into Trachea, Via Natural or Artificial Opening (ICD-10-PCS; 2016-07-18)
PROC: B41D1ZZ Fluoroscopy of Aorta and Bilateral Lower Extremity Arteries using Low Osmolar Contrast (ICD-10-PCS; principal; 2016-07-23)
DX: J44.0 Chronic obstructive pulmonary disease with (acute) lower respiratory infection (principal); J96.21 Acute and chronic respiratory failure with hypoxia; J18.9 Pneumonia, unspecified organism; J96.22 Acute and chronic respiratory failure with hypercapnia; L03.119 Cellulitis of unspecified part of limb; E44.0 Moderate protein-calorie malnutrition; L03.115 Cellulitis of right lower limb; L03.116 Cellulitis of left lower limb; N17.9 Acute kidney failure, unspecified; B35.9 Dermatophytosis, unspecified; D69.6 Thrombocytopenia, unspecified; E11.65 Type 2 diabetes mellitus with hyperglycemia; Z68.30 Body mass index [BMI] 30.0-30.9, adult; E66.9 Obesity, unspecified; F17.210 Nicotine dependence, cigarettes, uncomplicated; F32.9 Major depressive disorder, single episode, unspecified; I25.10 Atherosclerotic heart disease of native coronary artery without angina pectoris; I50.9 Heart failure, unspecified; I11.0 Hypertensive heart disease with heart failure; E11.51 Type 2 diabetes mellitus with diabetic peripheral angiopathy without gangrene; I77.6 Arteritis, unspecified; I87.2 Venous insufficiency (chronic) (peripheral); J84.10 Pulmonary fibrosis, unspecified; R13.10 Dysphagia, unspecified; Z87.11 Personal history of peptic ulcer disease; Z71.6 Tobacco abuse counseling; Z99.81 Dependence on supplemental oxygen; Z79.899 Other long term (current) drug therapy
CPT/HCPCS: 36246; 36415; 36600; 71010; 71020; 71250; 73590; 74000; 75625; 75716; 75774; 76937; 80048; 80053; 80061; 80202; 82595; 82805; 82947; 83036; 85007; 85027; 85610; 85651; 86021; 87040; 87070; 87071; 87075; 87186; 87205; 87641; 93922; 93923; 93970; 94002; 94003; 94250; 94640; 94660; 94760; 96374; 96375; C1713; C1760; C1769; C1892; C1894; G0269; J0330; J1100; J1170; J1650; J1815; J1940; J2270; J2405; J2543; J2704; J2920; J3010; J3370; J7030; J7040; J7050; J7620; Q9967; S0028; 92526; 92610; 97530; 97535; 99285-25

== ENCOUNTER 2016-08-13 09:59 | Day surgery (SDC) | payer OTHER ==
[~2016-08-13] VITALS: Ht 182.9 cm; Wt 88.5 kg
[~2016-08-13 09:59] MED LIST: ASPI81TA2 PO; BUPR100T8 PO; BUSP5TAB PO; FAMO20TA5 PO; FLUC100T7 PO; GABA-585 PO; IBUP-1027 PO; IPRA3AMP NEB; METH40VI IV; MIRT30TA3 PO; QUET25TA5 PO; SCOP1PAT TD; SPIR25TA3 PO; VENTOLIN HFA18 GM INH
[2016-08-13] MEDS ORDERED: CEFOXITIN 1 GM IV ONE (10:24)
[2016-08-13] MEDS ORDERED: [UNRECOGNIZED DRUG - OTHER] IV ONE (10:24)
[2016-08-13] MEDS ORDERED: CEFOXITIN 2GM IVPB FOR OMNI 100 ML IV ONE (10:45)
[2016-08-13] MEDS ORDERED: IV RINGERS,LACTATED 1000ML 1,000 ML IV SCH (11:00)
[2016-08-13] MEDS ORDERED: PROPOFOL 20 ML IV ONE (11:20)
[2016-08-13] MEDS ORDERED: FENTANYL PF 100 MCG/2 ML VIAL. ONE ×2 (11:20→14:26)
[2016-08-13] MEDS ORDERED: LIDOCAINE 2% 100 MG/5 ML SYRINGE. ONE (11:20)
[2016-08-13] MEDS ORDERED: ROCURONIUM 50 MG/5 ML VIAL. ONE (11:20)
[2016-08-13] MEDS ORDERED: SUCCINYLCHOLINE 200 MG/10 ML VIAL. ONE (11:28)
--- NOTE | 2016-08-13 12:06 | PDOC ---
SURGICAL PROGRESS NOTE Subjective 61 yo M with dysphagia TO OR for open G-tube R/B/A d/w pt Select consult previously dictated. Vital Signs Vital Signs Date Time Temp Pulse Resp B/P Pulse Ox O2 Delivery O2 Flow Rate FiO2 08/13/16 10:44 98.2 94 22 134/86 89 Nasal Cannula 4 98.2 Labs Laboratory Tests Test 08/13/16 10:53 Glucose (Fingerstick) 166mg/dL (70-99) Laboratory Tests Test 08/13/16 10:53 Glucose (Fingerstick) 166mg/dL (70-99) REYES TAN MD Aug 13, 2016 12:06
[2016-08-13] MEDS ORDERED: DEXAMETHASONE SOD PHOS 20 MG/5 ML VIAL. ONE (12:33)
[2016-08-13] MEDS ORDERED: SEVOFLURANE 16 TO 30 MINUTES. IH ONE (12:33)
[2016-08-13] MEDS ORDERED: GLYCOPYRROLATE 1 MG/5 ML VIAL. ONE (12:43)
[2016-08-13] MEDS ORDERED: ONDANSETRON PF 4 MG/2 ML VIAL. ONE (12:43)
[2016-08-13] MEDS ORDERED: NEOSTIGMINE METHYLSULFATE 5 MG/5 ML SYRINGE. ONE (12:44)
--- NOTE | 2016-08-13 13:30 | PDOC ---
BRIEF OPERATIVE NOTE Pre-Op Diagnosis Dysphagia Post-Op Diagnosis same Procedure Performed Open G-tube Surgeon Bobby Anesthesia Type: General Blood Loss 50 IV Fluid 800 Findings 22 F G-tube placed Complications none Additional Remarks [id number] REYES TAN MD Aug 13, 2016 13:30
--- NOTE | 2016-08-13 14:15 | RAD ---
Abdomen radiograph History: Postoperative, gastrostomy tube placement. Comparison: 07/29/2016. Findings: AP portable supine abdomen radiograph. Bowel gas pattern is nonspecific. A small amount of oral contrast can be seen within the colon. Oral contrast also opacifies the appendix. There is a gastrostomy tube seen in the left upper quadrant, at the expected location of the stomach. Mild stress expected pneumoperitoneum is seen. Portions of the left hip fixation hardware are noted. Impression: Expected postoperative changes of recent gastrostomy.
[2016-08-13] MEDS: FENTANYL PF 100 MCG/2 ML VIAL. IV PRN ×2 (14:32→14:41)
[2016-08-13 14:37] VITALS: BP 146/78
--- NOTE | 2016-08-13 15:05 | OP ---
DATE OF SURGERY: 08/13/2016 REFERRING PHYSICIANS: Dr. Jacquelyn Rodrigez. PREOPERATIVE DIAGNOSIS: Dysphagia. POSTOPERATIVE DIAGNOSIS: Dysphagia. PROCEDURE: Open gastrostomy tube placement. SURGEON: Albaro Tan M.D. ESTIMATED BLOOD LOSS: 50 mL. FLUIDS: 800 mL. COMPLICATIONS: None. INDICATIONS: A 61-year-old male who has been unable to tolerate p.o. after prolonged intubation, attempts at placement of PEG tube were unsuccessful. Subsequently, it was felt patient would best be served by open gastrostomy tube placement. The patient was informed of the risks, benefits, alternatives of procedure, risks including, but not limited to bleeding, infection, damage to surrounding structures, risk of anesthesia, risk of an open procedure, risk of leakage and tube dislodgement. The patient appears to understand and his insightful questions were answered and he agrees to proceed. DESCRIPTION OF PROCEDURE: After obtaining informed consent, the patient was taken to the operating room, induced under general endotracheal anesthetic. The patient was prepped and draped in usual fashion in the anterior abdominal wall. Upper midline incision was reopened using electrocautery. Subcutaneous tissue was divided using electrocautery. Fascia was divided in midline. The upper abdomen was essentially locked in secondary to previous surgery. Lysis of adhesions was performed to clear out the area. The stomach was subsequently identified by palpation of the OG tube as well as the edge of the liver. The appropriate site was selected and then 22-Bhutanese gastrostomy was brought in through the left upper quadrant and placed this into the stomach between 2-0 and 3-0 Vicryl pursestrings. The balloon was inflated and the pursestrings were tied down. The stomach was tacked to the anterior abdominal wall using multiple interrupted 3-0 Vicryl stitches. The wound was copiously irrigated with normal saline solution. Fascia was reapproximated in midline using a #1 looped 0 PDS stitches in continuous fashion. Subcutaneous tissues reapproximated loosely using 3-0 Vicryl and skin incisions were reapproximated loosely using 4-0 Monocryl in subcuticular fashion. Sterile dressing was placed over the wound. The G-tube was tacked in place using multiple interrupted 3-0 nylon stitches. The patient tolerated the procedure well and was discharged to recovery room in stable condition. All counts were correct. There were no immediate complications. ALBARO TAN MD DR: WYATT/yvonne JOB#: [id number] / [id number] DANELLE Ellison MD, IRA MD PATEL, PRAVIN MD
== END 2016-08-13 15:00 ==
LOC: SURG 09:59
PROVIDERS: ATTEND Surgery
DX: R13.10 Dysphagia, unspecified (principal); I10 Essential (primary) hypertension; J44.9 Chronic obstructive pulmonary disease, unspecified; E11.9 Type 2 diabetes mellitus without complications; F41.9 Anxiety disorder, unspecified; Z72.89 Other problems related to lifestyle
CPT/HCPCS: 43830; 74000; 82947; J0330; J1100; J2405; J2704; J2710; J3010; J3490; J0694